=== PATIENT | male | born 1985 | race Caucasian/White ===

== ENCOUNTER 2017-09-27 01:44 | Inpatient (IN) | payer OTHER ==
[~2017-09-27] VITALS: Ht 177.8 cm; Wt 59.0 kg
[~2017-09-27 01:44] MED LIST: FERROUS SULFAT324 MG PO; IMURAN50 M1 PO; MULTIVITAMINS1 EAC9 PO; PRADAXA150 M1 PO; PREDNISONE10 M2 PO; PREDNISONE20 M1 PO; REMICADE100 MG
[2017-09-27 06:30] LABS: ABSOLUTE BASOPHIL COUNT 0 /CUMM (0.0-0.2); ABSOLUTE EOSINOPHIL COUNT 0.1 /CUMM (0.0-0.7); ABSOLUTE LYMPH COUNT 2.2 /CUMM (1.2-3.4); ABSOLUTE MONOCYTE COUNT 1.3 /CUMM (0.10-0.60); BASOPHIL % 0.3 % (0.0-2.0); EOSINOPHIL % 0.7 % (0-5); HEMATOCRIT 36.5 % (42-52); MEAN CORPUSCULAR HGB 27.5 PG (27.0-31.0); MEAN CORPUSCULAR HGB CONC 31.8 G/DL (33.0-37.0); MEAN CORPUSCULAR VOLUME 86.2 FL (80.0-94.0); MEAN PLATELET VOLUME 5.7 FL (7.4-10.4); PLATELET COUNT 682 /CUMM (130-400); RBC DISTRIBUTION WIDTH 14.9 % (11.5-14.5); RED BLOOD CELL CT 4.24 /CUMM (4.70-6.10); WHITE BLOOD CELL COUNT 12.7 /CUMM (4.8-10.8)
--- NOTE | 2017-09-27 15:30 | Operative Report ---
Operative/Inv Procedure Report Surgery Date: 09/27/17 Name of Procedure: 1. Robotic/laparoscopic total proctocolectomy formation of Ileoanal J-pouch 2. Laparoscopically formed a diverting loop ileostomy Pre-Operative Diagnosis: Ulcerative colitis refractory to medical treatment Post-Operative Diagnosis: Ulcerative colitis refractory to medical treatment Estimated Blood Loss: 50ml to 100ml Surgeon/Artist Color Separation: Kilo Santiago Jr., DO Anesthesia: general endotracheal tube, block Monitors: Per routine Drains: None Specimens: Total colon and rectum Complications: None Condition: Good Operative Indication: This is a 32-year-old gentleman who was diagnosed with ulcerative colitis approximately year ago. Despite aggressive medical therapy his GI doctors have been unable to relieve his symptoms and put him into remission. He was referred to me for consideration of total proctocolectomy. After lengthy Counseling the patient decided to proceed with the surgery. Discussed the options of end ileostomy versus J-pouch reconstruction patient elected J-pouch Operative/Procedure Note Note: On the day before his operation the patient did a bowel prep at home included oral laxatives and oral antibiotics He presented to [facility] where he received ERAS premedications Was taken to the operating room placed in supine position on the operating room table. He underwent induction of general anesthesia. A Joseph catheter placed. He had bilateral tap blocks warmed. Then he was converted to lithotomy position in Jassi stirrups Gained access to the abdominal cavity using a Veress needle. The needle was inserted in the midclavicular line to subclavicular on the left. The robotic ports were then placed on a diagonal line drawn between the mid clavicular line on the left and the right lower quadrant. Patient is small stature so the ports were placed about 8 cm apart. A right lower quadrant 8 mm air support was placed. And 25 mm ports were placed one on the left upper quadrant with the other in left lower quadrant The patient was placed in Trendelenburg right side down the small bowel swept out of the pelvis and the robot was docked. I started by dividing some abnormal adhesions between sigmoid colon and the anterior abdominal wall. Next the rectosigmoid was grasped I incised the peritoneum at the sacral promontory just to the right of the rectosigmoid and entered the avascular posterior rectal space. I didn't medial to lateral dissection into the left ureter were and iliac vessels were identified. I then followed this avascular space all the way to the levators posteriorly.. The lateral stalks were divided both on the right and to and on the left partly with electrocautery partly with vessel sealer until I reached the levator muscles. Anterior dissection was performed freeing the GI review structures from the anterior rectal wall. Prior to doing the transection I identified the vessels of the left colon.. The inferior mesenteric artery and vein were skeletonized and then divided with a robotic vessel sealer. The left colic artery was also identified and sealed with vessel sealer. Down the white line of Toldt for the entire length of the sigmoid colon and the entire length of the descending colon. Next the rectum was transected using green robotic ALISIA 45 mm stapler. 3 firings in total were required. At this point using table motion the patient was converted to reverse Trendelenburg. The splenic flexure was mobilized I divided the gastrocolic ligament then divided most of the transverse colon mesentery using the robotic vessel sealer. At this point the robot was undocked. Next laparoscopic right colectomy was carried out. I identified the ileocolic vessels skeletonized then divided with LigaSure. The medial to lateral dissection until I reached the lateral sidewall. The white line of Toldt was taken down starting at the appendix and working antegrade into the entire hepatic flexure was taken down. I divided the remainder of the gastrocolic ligament and then the remainder of the transverse colon mesentery, the right colic and middle colic vessels were identified and skeletonized and divided with vessel sealer. At this point the robot was undocked and pneumoperitoneum was let down. Next a 5 cm Pfannenstiel incision was performed and a wound protector was placed through this. I was able to grasp the transected end of the rectum and pull the entire colon and a good portion of the terminal ileum out through this incision. I cleared the mesentery at the ileocecal valve and then divided the bowel here with a blue ALISIA stapler flush with the colon wall. The small bowel was folded over on itself so that each limb was 20 cm and then the apex of the pouch the bowel was sent here to each other with interrupted 2-0 Vicryl sutures. Next a small enterotomy was made at the apex of the pouch and then using a laparoscopic ALISIA stapler IV divided the common wall. 460 mm staplers were used to create the pouch. Next the handsewn pursestring was performed at the previously made enterotomy a 25 EEA stapler was chosen for the anastomosis. The anvil was placed into the lumen of the J-pouch. The [place] was tied snugly around the PEG of the anvil. The bowel was reduced back into the abdominal cavity and then the Pfannenstiel incision was closed in 2 layers. The perineum was closed with running locking 2 -0 Vicryl sutures in the fascia was closed with a #0 PDS suture. Next the abdomen was reinsufflated and the EEA sizers then EEA stapler passed transanally. There was only about 4 cm of residual anal canal and rectum. The spike was advanced through the rectal wall and then the 2 ends of the stapler mated. We made sure the there was no twisting of the small bowel mesentery. Stapler was completely closed and allowed to settle. The stapler was then fired. As I withdrew the stapler. The anvil came loose into the J-pouch. A rigid sigmoidoscope was used to was find the anvil and then it was grasped with laparoscopic grasper and retrieved. The pouch looked pink and healthy and the suture lines appeared intact. Next we ran the bowel back untill we found acomfortable site for the loop ileostomy. A small mesenteric defect was created in a umbilical tape was pulled through this. The local tip was grasped and pulled up through the #3 port. The robotic colonoscopic for several then removed. The fascia at the 12 mm robotic port was closed with a [id number] 0 Vicryl. All the ports were closed with subcuticular 4-0 Monocryl and skin glue. Pfannenstiel port was copiously irrigated gated and then closed with katy. The incision around the 3 port was enlarged. Fascia was divided in cruciate fashion. The bowel was pulled up through the fascia and then a loop ileostomy was performed using Delphos technique. 3-0 Vicryl's were used to Caitlyn stoma. A stoma bridge was created with a red rubber catheter. At this point the procedure was concluded the abdomen was cleansed and dried a stomal collection device placed over the ileostomy and a island dressing was placed over the Pfannenstiel incision. The patient was converted back to supine exiting operating room and taken the recovery area in good condition At the end this procedure all needle sponges and instruments were accounted for
--- NOTE | 2017-09-27 16:01 | Patient Discharge Instructions ---
Discharge Instructions General Discharge Information You were seen/treated for: Ulcerative Colitis refractory to medical treatment You had these procedures: Name of Procedure: Robotic/laparoscopic total proctocolectomy, formation of Ileoanal J-pouch, diverting loop ileostomy creation Watch for these problems: Bleeding, infection, chest pain, cough, shortness of breath, redness, swelling or unusual drainage from incisions. Any other problems, questions or concerns. Do not soak the wound: Yes No bath, but you may shower: Yes Other wound care: -Steristrips will fall off once adhesive dissolves. -May shower, no tub baths/swimming- do not soak wounds. -Ostomy care: empty, measure and record output. -Contact Dr. Santiago's office if output continues to be greater than 1L in 24 hours -VNA for ostomy assistance -Call Dr. Santiago's office with questions/concerns Diet Recommended Diet: Regular Activity Full Activity/No Limits: No Activity Self Limited: Yes Pounds, do NOT lift more than: 10 Acute Coronary Syndrome Inclusion Criteria At DC or during hospital stay patient has or had the following: ACS DIAGNOSIS No Discharge Core Measures Meds if any: Prescribed or Continued at Discharge Meds if any: NOT Prescribed or Continued at Discharge Congestive Heart Failure Inclusion Criteria At DC or during hospital stay patient has or had the following: CHF DIAGNOSIS No Discharge Core Measures Meds if any: Prescribed or Continued at Discharge Meds if any: NOT Prescribed or Continued at Discharge Cerebrovascular accident Inclusion Criteria At DC or during hospital stay patient has or had the following: CVA/TIA Diagnosis No Discharge Core Measures Meds if any: Prescribed or Continued at Discharge Meds if any: NOT Prescribed or Continued at Discharge Venous thromboembolism Inclusion Criteria VTE Diagnosis No VTE Type NONE VTE Confirmed by (Test) NONE Discharge Core Measures - Per Current guidelines, there needs to be overlap - treatment for the first 5 days of Warfarin therapy. - If discharged on Warfarin prior to 5 days of - overlap therapy, the patient will need to be - assessed for post discharge needs including - *Post discharge parental anticoagulation - *Warfarin and/or parental anticoagulation education - *Follow up date to check INR post discharge At least 5 days overlap therapy as Inpatient No Meds if any: Prescribed or Continued at Discharge Note: Overlap Therapy is Warfarin and Anticoagulant Meds if any: NOT Prescribed or Continued at Discharge
--- NOTE | 2017-09-27 16:04 | Admission Core Measures ---
Acute Coronary Syndrome (CM) ACS Core Measures Acute Coronary Syndrome Diagnosis No Congestive Heart Failure (NEW) CHF Core Measures Congestive Heart Failure Diagnosis No Cerebrovascular Accident (NEW) CVA Core Measures CVA/TIA Diagnosis No Venous Thromboembolism VTE Core Sonia (View Protocol) VTE Risk Factors No risk factors No Mechanical VTE Prophylaxis d/t N/A MechProphylax Ordered No VTE Pharm Prophylaxis d/t NA PharmProphylax ordered Problem List As ranked by this Provider includes Assessment & Plan 1. Ulcerative colitis 2. S/P total colectomy HOME MEDS Home Med List Azathioprine (Imuran) 50 MG TABLET 1 TAB PO DAILY COLITIS (Reported) Dabigatran Etexilate Mesylate (Pradaxa 150 MG) 150 MG CAPSULE 1 CAP PO BID ANTICOAGULANT (Reported) Ferrous Sulfate 324 MG (65 MG IRON) TABLET.DR 1 TAB PO DAILY SUPPLEMENT ( Reported) Multiple Vitamin (Multivitamins) 1 EACH TABLET 1 TAB PO DAILY SUPPLEMENT ( Reported) Prednisone 10 MG TABLET 1 TAB PO DAILY COLITIS (Reported)
--- NOTE | 2017-09-27 16:06 | Surgical Discharge Summary ---
Visit Information Visit Dates Admission Date: 09/27/17 History of Present Illness Chief Complaint: Ulcerative Colitis Review of Systems: as per [facility] Hospital Course Course Attending Physician: Kilo Santiago Jr., DO Primary Care Physician: Unknown Allergies: Coded Allergies: ketorolac (From TORADOL) (chest pain 09/29/17) Discharge Instructions Medications at Discharge Discharge Medications: Continue taking these medications: Azathioprine (Imuran) 50 MG TABLET 1 Tablet ORAL DAILY Ferrous Sulfate (Ferrous Sulfate) 324 MG (65 MG IRON) TABLET.DR 1 Tablet ORAL DAILY Infliximab (Remicade) 100 MG VIAL Multiple Vitamin (Multivitamins) 1 EACH TABLET 1 Tablet ORAL DAILY Dabigatran Etexilate Mesylate (Pradaxa 150 MG) 150 MG CAPSULE 1 Capsule ORAL TWICE DAILY Prednisone (Prednisone) 10 MG TABLET 1 Tablet ORAL DAILY
--- NOTE | 2017-09-27 21:05 | PN- General Surgery ---
Subjective Subjective: Patient doing well since arriving to the floor. Pain is not controlled at this time and is going to try something. Cantu in place. Tolerating clears. No other issues or complaints. Objective Vital Signs and I&Os Vital Signs Date Time Temp Pulse Resp B/P B/P Pulse O2 O2 Flow FiO2 Mean Ox Delivery Rate 09/27 1928 Nasal 2.0L Cannula Physical Exam: General: A, A, NAD Skin: Sub q emphysema to face/chest/neck Abdomen: Irena. ttp, dsg with ss strikethrough, incisions c/d/i with glue in place , ileostomy is pink/functioning and viable Extremities: No clubbing, cyanosis or edema Current Medications: Current Medications Sig/Sienna Start time Last Medication Dose Route Stop Time Status Admin Acetaminophen 1,000 MG Q8 09/27 1526 AC PO Acetaminophen 1,000 MG .STK-MED ONE 09/27 700 DC IV 09/27 701 Acetaminophen 1,000 MG ONCE 09/27 0000 NR PO 09/27 2359 Alvimopan 12 MG BID 09/27 2099 AC 09/27 PO 2012 Alvimopan 12 MG ONCE 09/27 0000 NR PO 09/27 2359 Diphenhydramine HCl 50 MG Q6P PRN 09/27 1545 AC IV Fentanyl Citrate 250 MCG .STK-MED ONE 09/27 700 DC IM 09/27 701 Gabapentin 300 MG BID 09/27 2099 AC 09/27 PO 2013 Gabapentin 0 .STK-MED ONE 09/27 0731 DC PO Gabapentin 600 MG ONCE 09/27 0000 NR PO 09/27 2359 Hydrocortisone 5 MG BID 10/02 2099 AC Sodium Succinate IV Hydrocortisone 10 MG BID 10/01 2099 AC Sodium Succinate IV Hydrocortisone 20 MG BID 09/30 2099 AC Sodium Succinate IV Hydrocortisone 30 MG BID 09/29 899 AC Sodium Succinate IV Hydrocortisone 40 MG BID 09/28 899 AC Sodium Succinate IV 09/28 210 Hydrocortisone 50 MG BID 09/27 2099 AC 09/27 Sodium Succinate IV 09/28 Hydromorphone HCl 4 MG .STK-MED ONE 09/27 07 DC IM 09/27 700 Lactated Ringer's 1,000 ML Q13H 09/27 1600 AC 09/27 IV 2014 Lactated Ringer's 75 ML .[HOURLY] 09/27 1545 CAN IV Meclizine HCl 12.5 MG TID PRN 09/27 1815 AC 09/27 PO 2013 Midazolam HCl 2 MG .STK-MED ONE 09/27 0701 DC IM 09/27 07 Morphine Sulfate 2 MG Q3P PRN 09/27 1600 AC 09/27 IV 2013 Morphine Sulfate 2 MG Q3P PRN 09/27 1545 DC IV Oxycodone HCl 5 MG Q4P PRN 09/27 1600 AC PO Oxycodone HCl 10 MG Q4P PRN 09/27 1600 AC PO Oxycodone/ 1 TAB Q4P PRN 09/27 1530 DC Acetaminophen PO Pantoprazole Sodium 40 MG DAILY 09/27 1537 AC 09/27 IV 2012 Results Last 48 Hours of Labs: Laboratory Tests 09/27 622 Chemistry Sodium (137 - 145 mmol/L) 136 L Potassium (3.5 - 5.1 mmol/L) 3.7 Chloride (98 - 107 mmol/L) 102 Carbon Dioxide (22 - 30 mmol/L) 28 Anion Gap (5 - 16) 6 BUN (9 - 20 mg/dL) 7 L Creatinine (0.7 - 1.2 mg/dL) 0.8 Estimated GFR (>60 ml/min) > 60 BUN/Creatinine Ratio (7 - 25 %) 8.8 Glucose (65 - 99 mg/dL) 75 Calcium (8.4 - 10.2 mg/dL) 8.2 L Total Bilirubin (0.2 - 1.3 mg/dL) 0.2 AST (17 - 59 U/L) 11 L ALT (21 - 72 U/L) 19 L Alkaline Phosphatase (< 127 U/L) 113 Total Protein (6.3 - 8.2 g/dL) 4.9 L Albumin (3.5 - 5.0 g/dL) 2.2 L Globulin (1.9 - 4.2 gm/dL) 2.7 Albumin/Globulin Ratio (1.1 - 2.2 %) 0.8 L Hematology CBC w Diff NO MAN DIFF REQ WBC (4.8 - 10.8 /CUMM) 12.7 H RBC (4.70 - 6.10 /CUMM) 4.24 L Hgb (14.0 - 18.0 G/DL) 11.6 L Hct (42 - 52 %) 36.5 L MCV (80.0 - 94.0 FL) 86.2 MCH (27.0 - 31.0 PG) 27.5 MCHC (33.0 - 37.0 G/DL) 31.8 L RDW (11.5 - 14.5 %) 14.9 H Plt Count (130 - 400 /CUMM) 682 H MPV (7.4 - 10.4 FL) 5.7 L Gran % (42.2 - 75.2 %) 71.0 Lymphocytes % (20.5 - 51.1 %) 17.4 L Monocytes % (1.7 - 9.3 %) 10.6 H Eosinophils % (0 - 5 %) 0.7 Basophils % (0.0 - 2.0 %) 0.3 Absolute Granulocytes (1.4 - 6.5 /CUMM) 9.0 H Absolute Lymphocytes (1.2 - 3.4 /CUMM) 2.2 Absolute Monocytes (0.10 - 0.60 /CUMM) 1.3 H Absolute Eosinophils (0.0 - 0.7 /CUMM) 0.1 Absolute Basophils (0.0 - 0.2 /CUMM) 0 Assessment/Plan Assessment/Plan This is a 32 yo male who is POD#0 from a robotic total proctocolectomy, jpouch and loop ileostomy creation, doing well. Ambulate Pain control/eras GI/DVT Px Home meds Continue cantu, d/c tomorrow Clear Liquid Diet Monitor quality and quantity of ostomy output Ostomy teaching Monitor sub q emphysema Will follow Will d/w Dr. Santiago Problem List: 1. Ulcerative colitis 2. S/P total colectomy Core Measures Venous Thromboembolism VTE Risk Factors No risk factors No Mechanical VTE Prophylaxis d/t N/A MechProphylax Ordered No VTE Pharm Prophylaxis d/t NA PharmProphylax ordered
[2017-09-27 22:41] VITALS: BP 118/70
[2017-09-28 06:34] VITALS: BP 134/80
--- NOTE | 2017-09-28 07:16 | PN- General Surgery ---
See Addendum Surgical Brief Attending Note Brief Attending Note: Patient complaining of a lot of abdominal pain this morning he describes as crampy upper abdominal Vital signs stable overnight Urine appears adequate On exam patient is awake alert, abdomen is nondistended, appropriately tender over incisions, stoma is putting out liquid brown stool Labs are not back yet Plan is as follows: DC Etereg Keep Joseph catheter Continue low rate IV fluids Patient has not attempted diet yet so clears this morning if tolerates can go to full this afternoon Labs look okay restart subcutaneous heparin today Pain control Stress dose steroids
[2017-09-28 08:22] LABS: ABSOLUTE BASOPHIL COUNT 0 /CUMM (0.0-0.2); ABSOLUTE EOSINOPHIL COUNT 0 /CUMM (0.0-0.7); ABSOLUTE GRANULOCYTE CT 9.8 /CUMM (1.4-6.5); ABSOLUTE LYMPH COUNT 0.5 /CUMM (1.2-3.4); ABSOLUTE MONOCYTE COUNT 0.6 /CUMM (0.10-0.60); BASOPHIL % 0.3 % (0.0-2.0); EOSINOPHIL % 0 % (0-5); HEMATOCRIT 31.7 % (42-52); MEAN CORPUSCULAR HGB 27.8 PG (27.0-31.0); MEAN CORPUSCULAR HGB CONC 32.2 G/DL (33.0-37.0); MEAN CORPUSCULAR VOLUME 86.3 FL (80.0-94.0); MEAN PLATELET VOLUME 6.8 FL (7.4-10.4); RBC DISTRIBUTION WIDTH 15.4 % (11.5-14.5); RED BLOOD CELL CT 3.67 /CUMM (4.70-6.10); WHITE BLOOD CELL COUNT 10.9 /CUMM (4.8-10.8)
[2017-09-28 09:43] LABS: GRANULOCYTE % 89.3 % (42.2-75.2)
[2017-09-28 09:44] LABS: PLATELET COUNT 379 /CUMM (130-400)
[2017-09-28 14:34] VITALS: BP 130/80
[2017-09-28 22:28] VITALS: BP 120/80
[2017-09-29 06:28] LABS: ABSOLUTE BASOPHIL COUNT 0.1 /CUMM (0.0-0.2); ABSOLUTE EOSINOPHIL COUNT 0 /CUMM (0.0-0.7); ABSOLUTE GRANULOCYTE CT 11.8 /CUMM (1.4-6.5); ABSOLUTE LYMPH COUNT 0.7 /CUMM (1.2-3.4); ABSOLUTE MONOCYTE COUNT 0.9 /CUMM (0.10-0.60); BASOPHIL % 0.5 % (0.0-2.0); EOSINOPHIL % 0.1 % (0-5); GRANULOCYTE % 87.2 % (42.2-75.2); HEMATOCRIT 35.5 % (42-52); MEAN CORPUSCULAR HGB 27.4 PG (27.0-31.0); MEAN CORPUSCULAR HGB CONC 31.5 G/DL (33.0-37.0); MEAN CORPUSCULAR VOLUME 87.1 FL (80.0-94.0); MEAN PLATELET VOLUME 6.1 FL (7.4-10.4); PLATELET COUNT 484 /CUMM (130-400); RBC DISTRIBUTION WIDTH 15.4 % (11.5-14.5); RED BLOOD CELL CT 4.07 /CUMM (4.70-6.10)
[2017-09-29 06:48] VITALS: BP 146/80
[2017-09-29 06:57] LABS: WHITE BLOOD CELL COUNT 13.5 /CUMM (4.8-10.8)
--- NOTE | 2017-09-29 07:55 | PN- General Surgery ---
See Addendum Subjective Subjective: Reports pain not well controlled. He is not doing deep breathing well due to his pain. Not getting out of bed yet due to pain. Denies dizziness. Not short of breath. No chest pains. Cantu left in place intentionally due to uncontrolled pain, which will be taken out later today once his pain is better controlled. Objective Vital Signs and I&Os Vital Signs Date Time Temp Pulse Resp B/P B/P Pulse O2 O2 Flow FiO2 Mean Ox Delivery Rate 09/30 647 97.6 68 18 146/80 98 Nasal 2.0L Cannula 09/29 0000 Nasal 2.0L Cannula 09/28 2228 98.7 72 20 120/80 94 Nasal Cannula 09/28 1434 98.8 67 20 130/80 98 09/28 0800 Nasal 2.0L Cannula Intake & Output 09/29 0800 09/29 0000 09/28 1600 09/28 0809/28 0000 09/27 1600 Intake Total 606 071 5739 1000 470 Output Total 500 1775 1450 750 330 Balance 225 -1350 -350 250 140 Intake, IV 525 225 600 600 330 Intake, Oral 200 200 500 400 140 Output, Stool 250 625 175 100 50 Output, Urine 250 1150 1275 650 280 Patient 130 lb Weight Weight Reported by Patient Measurement Method Physical Exam: General - alert & oriented x 3. uncomfortable. Lungs - poor effort. clear. Cardiac - s1s2. reg. Abdomen - soft. nondistended. expected incisional tenderness. stoma emptying liquid brown stool. red rubber catheter bridge in place. Current Medications: Current Medications Sig/Sienna Start time Last Medication Dose Route Stop Time Status Admin Acetaminophen 1,000 MG .STK-MED ONE 09/28 1508 DC PO 09/28 1509 Acetaminophen 1,000 MG Q8 09/27 1526 AC 09/29 PO 0527 Diphenhydramine HCl 50 MG Q6P PRN 09/27 1545 AC IV Gabapentin 300 MG BID 09/27 2100 AC 09/28 PO 210 Heparin Sodium 5,000 UNIT Q8 09/28 0745 AC 09/29 (Porcine) SC 0526 Hydrocortisone 5 MG BID 10/02 2099 CAN Sodium Succinate IV Hydrocortisone 5 MG Q12 10/02 2099 AC Sodium Succinate IV 10/03 09 Hydrocortisone 10 MG BID 10/01 2099 CAN Sodium Succinate IV Hydrocortisone 10 MG Q12 10/01 2099 AC Sodium Succinate IV 10/02 900 Hydrocortisone 20 MG BID 09/30 2099 CAN Sodium Succinate IV Hydrocortisone 20 MG Q12 09/30 2099 AC Sodium Succinate IV 10/01 900 Hydrocortisone 30 MG Q12 09/29 2099 AC Sodium Succinate IV 09/30 900 Hydrocortisone 30 MG BID 09/29 899 CAN Sodium Succinate IV Hydrocortisone 40 MG Q12 09/28 2099 AC 09/28 Sodium Succinate IV 09/29 Hydrocortisone 40 MG BID 09/28 899 DC Sodium Succinate IV 09/28 2100 Hydrocortisone 50 MG BID 09/27 2099 DC 09/28 Sodium Succinate IV 09/28 Ketorolac 30 MG ONCE ONE 09/30 799 UNVr Tromethamine IV 09/29 800 Lactated Ringer's 1,000 ML Q13H 09/27 1600 AC 09/28 IV 1913 Meclizine HCl 12.5 MG TID PRN 09/27 1815 AC 09/27 PO 2013 Morphine Sulfate 4 MG Q2-3 HRS NEEDED.. 09/30 799 UNVr IV Morphine Sulfate 2 MG Q2 HRS NEEDED PRN 09/28 0745 r 09/29 IV 0526 Oxycodone HCl 5 MG Q4P PRN 09/27 1600 AC PO Oxycodone HCl 10 MG Q4P PRN 09/27 1600 AC 09/29 PO 0312 Pantoprazole Sodium 40 MG DAILY 09/27 1537 AC 09/28 IV 0921 Results Last 48 Hours of Labs: Laboratory Tests 09/29 0600 Chemistry Sodium (137 - 145 mmol/L) 134 L Potassium (3.5 - 5.1 mmol/L) 4.5 Chloride (98 - 107 mmol/L) 101 Carbon Dioxide (22 - 30 mmol/L) 30 Anion Gap (5 - 16) 3 L BUN (9 - 20 mg/dL) 10 Creatinine (0.7 - 1.2 mg/dL) 0.8 Estimated GFR (>60 ml/min) > 60 BUN/Creatinine Ratio (7 - 25 %) 12.5 Phosphorus (2.5 - 4.5 mg/dL) 3.8 Cancelled Magnesium (1.6 - 2.3 mg/dL) 1.9 Troponin I (<0.11 ng/ml) < 0.01 Hematology CBC w Diff NO MAN DIFF REQ Cancelled WBC (4.8 - 10.8 /CUMM) 13.5 H Cancelled RBC (4.70 - 6.10 /CUMM) 4.07 L Cancelled Hgb (14.0 - 18.0 G/DL) 11.2 L Cancelled Hct (42 - 52 %) 35.5 L Cancelled MCV (80.0 - 94.0 FL) 87.1 Cancelled MCH (27.0 - 31.0 PG) 27.4 Cancelled MCHC (33.0 - 37.0 G/DL) 31.5 L Cancelled RDW (11.5 - 14.5 %) 15.4 H Cancelled Plt Count (130 - 400 /CUMM) 484 H Cancelled MPV (7.4 - 10.4 FL) 6.1 L Cancelled Gran % (42.2 - 75.2 %) 87.2 H Lymphocytes % (20.5 - 51.1 %) 5.3 L Monocytes % (1.7 - 9.3 %) 6.9 Eosinophils % (0 - 5 %) 0.1 Basophils % (0.0 - 2.0 %) 0.5 Absolute Granulocytes (1.4 - 6.5 /CUMM) 11.8 H Absolute Lymphocytes (1.2 - 3.4 /CUMM) 0.7 L Absolute Monocytes (0.10 - 0.60 /CUMM) 0.9 H Absolute Eosinophils (0.0 - 0.7 /CUMM) 0 Absolute Basophils (0.0 - 0.2 /CUMM) 0.1 05/05 0730 Chemistry Sodium (137 - 145 mmol/L) 134 L Potassium (3.5 - 5.1 mmol/L) 4.5 Chloride (98 - 107 mmol/L) 103 Carbon Dioxide (22 - 30 mmol/L) 26 Anion Gap (5 - 16) 4 L BUN (9 - 20 mg/dL) 7 L Creatinine (0.7 - 1.2 mg/dL) 0.7 Estimated GFR (>60 ml/min) > 60 BUN/Creatinine Ratio (7 - 25 %) 10.0 Hematology CBC w Diff NO MAN DIFF REQ WBC (4.8 - 10.8 /CUMM) 10.9 H RBC (4.70 - 6.10 /CUMM) 3.67 L Hgb (14.0 - 18.0 G/DL) 10.2 L Hct (42 - 52 %) 31.7 L MCV (80.0 - 94.0 FL) 86.3 MCH (27.0 - 31.0 PG) 27.8 MCHC (33.0 - 37.0 G/DL) 32.2 L RDW (11.5 - 14.5 %) 15.4 H Plt Count (130 - 400 /CUMM) 379 MPV (7.4 - 10.4 FL) 6.8 L Gran % (42.2 - 75.2 %) 89.3 H Lymphocytes % (20.5 - 51.1 %) 5.0 L Monocytes % (1.7 - 9.3 %) 5.4 Eosinophils % (0 - 5 %) 0 Basophils % (0.0 - 2.0 %) 0.3 Absolute Granulocytes (1.4 - 6.5 /CUMM) 9.8 H Absolute Lymphocytes (1.2 - 3.4 /CUMM) 0.5 L Absolute Monocytes (0.10 - 0.60 /CUMM) 0.6 Absolute Eosinophils (0.0 - 0.7 /CUMM) 0 Absolute Basophils (0.0 - 0.2 /CUMM) 0 Assessment/Plan Assessment/Plan This 32 year old male with history of ulcerative colitis refractory to medical treatment, is POD#2 s/p robotic/laparoscopic total proctocolectomy formation of Ileoanal J-pouch, and laparoscopically formed diverting loop ileostomy tolerating clears / fulls. d/c iv fluids try IV toradol x 1 per will increase morphine option from 2 to 4mg q2-3 prn pain renew cantu until able to ambulate, once pain under better control steroid taper as ordered protonix - gi ppx hep sc - dvt ppx f/u labs oob/ambulation once pain under better control d/w Core Measures Venous Thromboembolism VTE Risk Factors No risk factors No Mechanical VTE Prophylaxis d/t N/A MechProphylax Ordered No VTE Pharm Prophylaxis d/t NA PharmProphylax ordered No VTE Pharm Prophylaxis d/t NA PharmProphylax ordered
[2017-09-29 15:19] VITALS: BP 146/82
--- NOTE | 2017-09-29 18:36 | RADIOLOGY REPORT ---
EXAMINATION: XR CHEST, PORTABLE CLINICAL INFORMATION: Postop leukocytosis. COMPARISON: None TECHNIQUE: Portable frontal view of the chest was obtained. FINDINGS: Subcutaneous emphysema overlying the chest and neck. Suspect a moderate right-sided pneumothorax. There is opacification of the bilateral lower lungs, most notably in the left lower lung. No significant mediastinal widening. No acute osseous abnormalities. IMPRESSION: 1. Moderate right pneumothorax. 2. Extensive subcutaneous emphysema about the chest and neck. 3. Hazy bilateral lower lung opacification, most notable at the left lower lung. Findings could represent atelectasis, aspiration, or pneumonia.
[2017-09-29 22:21] VITALS: BP 120/86
[2017-09-30 04:57] LABS: ABSOLUTE BASOPHIL COUNT 0 /CUMM (0.0-0.2); ABSOLUTE EOSINOPHIL COUNT 0 /CUMM (0.0-0.7); ABSOLUTE LYMPH COUNT 0.7 /CUMM (1.2-3.4); ABSOLUTE MONOCYTE COUNT 1.2 /CUMM (0.10-0.60); EOSINOPHIL % 0 % (0-5)
[2017-09-30 05:30] LABS: ABSOLUTE GRANULOCYTE CT 26.3 /CUMM (1.4-6.5); BASOPHIL % 0 % (0.0-2.0); GRANULOCYTE % 93.3 % (42.2-75.2); HEMATOCRIT 35.3 % (42-52); MEAN CORPUSCULAR HGB 27.8 PG (27.0-31.0); MEAN CORPUSCULAR HGB CONC 31.9 G/DL (33.0-37.0); MEAN PLATELET VOLUME 6.6 FL (7.4-10.4); PLATELET COUNT 495 /CUMM (130-400); RED BLOOD CELL CT 4.06 /CUMM (4.70-6.10)
[2017-09-30 05:50] LABS: WHITE BLOOD CELL COUNT 28.2 /CUMM (4.8-10.8)
--- NOTE | 2017-09-30 05:56 | PN- General Surgery ---
Subjective Subjective: Transferred to icu last night due to right sided pneumothorax, which he believes he has been symptomtatic from since he woke up from surgery on saturday. Placed on 100% nrb mask overnight. He reports ongoing painful breathing, which outweights his abdominal discomfort. Intentionally avoiding deep breathing due to pain. Not acutely short of breath. Not getting up / oob secondary to pain. Objective Vital Signs and I&Os Vital Signs Date Time Temp Pulse Resp B/P B/P Pulse O2 O2 Flow FiO2 Mean Ox Delivery Rate 09/30 0400 100 Non 100% ReBreather 09/30 0000 100 Non 100% ReBreather 09/29 2221 98.9 96 24 120/86 99 Non 100% ReBreather 09/29 1519 98.1 70 18 146/82 99 09/29 0800 Nasal 2.0L Cannula 09/29 0648 97.6 68 18 146/80 98 Nasal 2.0L Cannula Intake & Output 09/30 0800 09/30 0000 09/29 1600 09/29 0800 09/29 0000 09/28 1600 Intake Total 175 750 960 535 3145 Output Total 200 132 804 8037 1450 Balance -25 300 225 -1350 -350 Intake, IV 75 525 225 600 Intake, Oral 100 750 200 200 500 Output, Stool 50 300 250 625 175 Output, Urine 150 318 312 3476 1275 Physical Exam: General - alert & oriented x 3. uncomfortable. no acute distress. Lungs - poor effort. decreased breath sounds on the right compared to left. Cardiac - s1s2. reg. Abdomen - soft. incisions c/d/i. expected leela-incisional tenderness. ileostomy with small amount of liquid stool in bag. red rubber catheter in place. - cantu draining clear, yellow urine Extremities - warm bilaterally. no c/c/e. calves soft and nontender b/l. athrombics active. Current Medications: Current Medications Sig/Sienna Start time Last Medication Dose Route Stop Time Status Admin Acetaminophen 1,000 MG Q8 09/27 1526 AC 09/29 PO 2140 Dextrose/Sodium 1,000 ML Q13H 09/30 1999 AC 09/29 Chloride IV 2142 Diphenhydramine HCl 50 MG Q6P PRN 09/27 1545 AC IV Gabapentin 300 MG BID 09/27 2100 AC 09/29 PO 2130 Heparin Sodium 5,000 UNIT Q8 09/28 0745 AC 05/07 (Porcine) SC 0541 Hydrocortisone 5 MG Q12 10/02 2099 AC Sodium Succinate IV 10/03 900 Hydrocortisone 10 MG Q12 10/01 2099 AC Sodium Succinate IV 10/02 900 Hydrocortisone 20 MG Q12 09/30 2100 AC Sodium Succinate IV 10/01 900 Hydrocortisone 30 MG Q12 09/29 2100 AC 09/29 Sodium Succinate IV 09/30 0901 2127 Hydrocortisone 40 MG Q12 09/28 2099 DC 09/29 Sodium Succinate IV 09/29 0901 0811 Ketorolac 15 MG Q6 09/29 1311 DC 09/29 Tromethamine IV 09/30 1801 1428 Ketorolac 30 MG 0800 09/29 0800 DC 09/29 Tromethamine IV 09/29 08 0814 Lactated Ringer's 1,000 ML Q13H 09/27 1600 DC 09/28 IV 1913 Lorazepam 0.5 MG Q8P PRN 09/29 1945 AC PO 10/06 194 Meclizine HCl 12.5 MG TID PRN 09/27 181 AC 09/27 PO 2013 Morphine Sulfate 4 MG Q2-3 HRS NEEDED.. 09/29 0800 AC 09/29 IV 2130 Morphine Sulfate 2 MG Q2 HRS NEEDED PRN 09/28 0745 AC 09/30 IV 0356 Oxycodone HCl 5 MG Q4P PRN 09/27 1600 AC PO Oxycodone HCl 10 MG Q4P PRN 09/27 1600 AC 09/29 PO 0312 Pantoprazole Sodium 40 MG DAILY 09/27 1537 AC 09/29 IV 0809 Results Last 48 Hours of Labs: Laboratory Tests 09/30 09/29 0400 0605 Chemistry Sodium (137 - 145 mmol/L) 133 L 134 L Potassium (3.5 - 5.1 mmol/L) 4.6 4.5 Chloride (98 - 107 mmol/L) 100 101 Carbon Dioxide (22 - 30 mmol/L) 28 30 Anion Gap (5 - 16) 5 3 L BUN (9 - 20 mg/dL) 13 10 Creatinine (0.7 - 1.2 mg/dL) 0.8 0.8 Estimated GFR (>60 ml/min) > 60 > 60 BUN/Creatinine Ratio (7 - 25 %) 16.3 12.5 Phosphorus (2.5 - 4.5 mg/dL) 3.8 Magnesium (1.6 - 2.3 mg/dL) 1.9 Troponin I (<0.11 ng/ml) < 0.01 Hematology CBC w Diff MAN DIFF ORDERED NO MAN DIFF REQ WBC (4.8 - 10.8 /CUMM) 28.2 H 13.5 H RBC (4.70 - 6.10 /CUMM) 4.06 L 4.07 L Hgb (14.0 - 18.0 G/DL) 11.3 L 11.2 L Hct (42 - 52 %) 35.3 L 35.5 L MCV (80.0 - 94.0 FL) 87.0 87.1 MCH (27.0 - 31.0 PG) 27.8 27.4 MCHC (33.0 - 37.0 G/DL) 31.9 L 31.5 L RDW (11.5 - 14.5 %) 15.0 H 15.4 H Plt Count (130 - 400 /CUMM) 495 H 484 H MPV (7.4 - 10.4 FL) 6.6 L 6.1 L Gran % (42.2 - 75.2 %) 93.3 H 87.2 H Lymphocytes % (20.5 - 51.1 %) 2.5 L 5.3 L Monocytes % (1.7 - 9.3 %) 4.2 6.9 Eosinophils % (0 - 5 %) 0 0.1 Basophils % (0.0 - 2.0 %) 0 0.5 Absolute Granulocytes (1.4 - 6.5 /CUMM) 26.3 H 11.8 H Segmented Neutrophils (42.2 - 75.2 %) 83 H Band Neutrophils (0.0 - 5.0 %) 8 H Absolute Lymphocytes (1.2 - 3.4 /CUMM) 0.7 L 0.7 L Lymphocytes (20.5 - 51.1 %) 4 L Monocytes (1.7 - 9.3 %) 5 Absolute Monocytes (0.10 - 0.60 /CUMM) 1.2 H 0.9 H Absolute Eosinophils (0.0 - 0.7 /CUMM) 0 0 Absolute Basophils (0.0 - 0.2 /CUMM) 0 0.1 Platelet Estimate (ADEQUATE) ADEQUATE Polychromasia 1+ Hypochromic-Microcytic 2+ Basophilic Stippling RARE Anisocytosis 1+ 05/06 05 0600 0730 Chemistry Sodium (137 - 145 mmol/L) 134 L Potassium (3.5 - 5.1 mmol/L) 4.5 Chloride (98 - 107 mmol/L) 103 Carbon Dioxide (22 - 30 mmol/L) 26 Anion Gap (5 - 16) 4 L BUN (9 - 20 mg/dL) 7 L Creatinine (0.7 - 1.2 mg/dL) 0.7 Estimated GFR (>60 ml/min) > 60 BUN/Creatinine Ratio (7 - 25 %) 10.0 Phosphorus Cancelled Hematology CBC w Diff Cancelled NO MAN DIFF REQ WBC (4.8 - 10.8 /CUMM) Cancelled 10.9 H RBC (4.70 - 6.10 /CUMM) Cancelled 3.67 L Hgb (14.0 - 18.0 G/DL) Cancelled 10.2 L Hct (42 - 52 %) Cancelled 31.7 L MCV (80.0 - 94.0 FL) Cancelled 86.3 MCH (27.0 - 31.0 PG) Cancelled 27.8 MCHC (33.0 - 37.0 G/DL) Cancelled 32.2 L RDW (11.5 - 14.5 %) Cancelled 15.4 H Plt Count (130 - 400 /CUMM) Cancelled 379 MPV (7.4 - 10.4 FL) Cancelled 6.8 L Gran % (42.2 - 75.2 %) 89.3 H Lymphocytes % (20.5 - 51.1 %) 5.0 L Monocytes % (1.7 - 9.3 %) 5.4 Eosinophils % (0 - 5 %) 0 Basophils % (0.0 - 2.0 %) 0.3 Absolute Granulocytes (1.4 - 6.5 /CUMM) 9.8 H Absolute Lymphocytes (1.2 - 3.4 /CUMM) 0.5 L Absolute Monocytes (0.10 - 0.60 /CUMM) 0.6 Absolute Eosinophils (0.0 - 0.7 /CUMM) 0 Absolute Basophils (0.0 - 0.2 /CUMM) 0 Recent Imaging Studies: EXAMINATION: XR CHEST, PORTABLE CLINICAL INFORMATION: Postop leukocytosis. COMPARISON: None TECHNIQUE: Portable frontal view of the chest was obtained. FINDINGS: Subcutaneous emphysema overlying the chest and neck. Suspect a moderate right-sided pneumothorax. There is opacification of the bilateral lower lungs, most notably in the left lower lung. No significant mediastinal widening. No acute osseous abnormalities. IMPRESSION: 1. Moderate right pneumothorax. 2. Extensive subcutaneous emphysema about the chest and neck. 3. Hazy bilateral lower lung opacification, most notable at the left lower lung. Findings could represent atelectasis, aspiration, or pneumonia. DICTATED BY: Dane Peralta MD DATE/TIME DICTATED:09/29/171824 BINDERY WORKER:JENNIFFER DATE/TIME TRANSCRIBED:09/29/171824 Assessment/Plan Assessment/Plan This 32 year old male with history of ulcerative colitis refractory to medical treatment, is POD#3 s/p robotic/laparoscopic total proctocolectomy formation of Ileoanal J-pouch, and laparoscopically formed diverting loop ileostomy, transferred to icu last night due to right sided pneumothorax that he believes he woke up with after surgery on saturday - with painful breathing outweighing his abdominal discomfort currently npo / ivf placed on 100% NRB mask overnight / continuous o2 sat monitoring f/u cxr this morning tylenol / morphine / ativan prn pain (he did not like how toradol made him feel) d/c cantu once able / comfortable enough to get out of bed steroid taper as ordered protonix - gi ppx hep sc - dvt ppx f/u labs and cxr oob/ambulation once pain under better control f/u and d/w Core Measures Venous Thromboembolism VTE Risk Factors No risk factors No Mechanical VTE Prophylaxis d/t N/A MechProphylax Ordered No VTE Pharm Prophylaxis d/t NA PharmProphylax ordered
[2017-09-30 08:00] VITALS: BP 122/86
--- NOTE | 2017-09-30 08:35 | Cons- CRCU ---
Maira FRAUSTO,[facility] 09/30/17 0834: General Information and HPI Consulting Request Date of Consult: 09/30/17 Requested By: Surgical Team Reason for Consult: Pneumothorax Source of Information: patient Exam Limitations: no limitations History of Present Illness: Mr. Baltazar is a 32-year-old gentleman with past medical history significant for right lower extremity DVT and PE on Pradaxa(February 2017) and refractory ulcerative colitis who was initially admitted under surgical services for laparoscopic total proctocolectomy with formation of ileoanal J-pouch and diverticular loop ileostomy, postop day 3, was transferred to the ICU yesterday evening after on chest x-ray he was found to have a moderate right sided pneumothorax and extensive subcutaneous emphysema about the neck and chest. He was started to placed on 100% NRB mask and transferred to ICU for continuous O2 sats monitoring. Patient is also on stress dose hydrocortisone, as he takes prednisone 10 mg daily at home for ulcerative colitis. Patient is a former smoker and drinker; quit 1-1/2 years ago after his Ulcerative colitis started acting up. Allergies/Medications Allergies: Coded Allergies: ketorolac (From TORADOL) (chest pain 09/29/17) Home Med List: Azathioprine (Imuran) 50 MG TABLET 1 TAB PO DAILY COLITIS (Reported) Dabigatran Etexilate Mesylate (Pradaxa 150 MG) 150 MG CAPSULE 1 CAP PO BID ANTICOAGULANT (Reported) Ferrous Sulfate 324 MG (65 MG IRON) TABLET.DR 1 TAB PO DAILY SUPPLEMENT ( Reported) Infliximab (Remicade) 100 MG VIAL COLITIS (Reported) Multiple Vitamin (Multivitamins) 1 EACH TABLET 1 TAB PO DAILY SUPPLEMENT ( Reported) Prednisone 10 MG TABLET 1 TAB PO DAILY COLITIS (Reported) Current Medications: Current Medications Sig/Sienna Start time Last Medication Dose Route Stop Time Status Admin Acetaminophen 1,000 MG Q8 09/27 1526 AC 09/30 PO 0622 Ampicillin Sodium/ 1,500 MG Q6 09/30 1200 AC Sulbactam Sodium IV 10/01 1159 Sodium Chloride 100 ML Dextrose/Sodium 1,000 ML Q13H 09/29 2000 AC 09/29 Chloride IV 2142 Diphenhydramine HCl 50 MG Q6P PRN 09/27 1545 AC IV Fentanyl Citrate 0 .STK-MED ONE 09/30 1104 DC .ROUTE Gabapentin 300 MG BID 09/27 2100 AC 09/30 PO 0854 Heparin Sodium 5,000 UNIT Q8 09/28 0745 AC 09/30 (Porcine) SC 0541 Hydrocortisone 5 MG Q12 10/02 2100 AC Sodium Succinate IV 10/03 0901 Hydrocortisone 10 MG Q12 10/01 2100 AC Sodium Succinate IV 10/02 0901 Hydrocortisone 20 MG Q12 09/30 2100 AC Sodium Succinate IV 10/01 0901 Hydrocortisone 30 MG Q12 09/29 2100 DC 09/30 Sodium Succinate IV 09/30 0901 0854 Ketorolac 15 MG Q6 09/29 1311 DC 09/29 Tromethamine IV 09/30 1801 1428 Lorazepam 0.5 MG Q8P PRN 09/29 1945 AC PO 10/06 194 Meclizine HCl 12.5 MG TID PRN 09/27 1815 AC 09/27 PO 2013 Midazolam HCl 0 .STK-MED ONE 09/30 1104 DC .ROUTE Morphine Sulfate 4 MG Q2-3 HRS NEEDED.. 09/29 0800 AC 09/29 IV 2130 Morphine Sulfate 2 MG Q2 HRS NEEDED PRN 09/28 0745 AC 09/30 IV 0356 Oxycodone HCl 5 MG Q4P PRN 09/27 1600 AC PO Oxycodone HCl 10 MG Q4P PRN 09/27 1600 AC 09/29 PO 0312 Pantoprazole Sodium 40 MG DAILY 09/27 1537 AC 09/30 IV 0854 Review of Systems Review of Systems Constitutional: Reports: no symptoms. EENTM: Reports: no symptoms. Cardiovascular: Reports: no symptoms. Respiratory: Reports: short of breath. GI: Reports: no symptoms. Genitourinary: Reports: no symptoms. Musculoskeletal: Reports: muscle pain. Skin: Reports: no symptoms. Neurological/Psychological: Reports: no symptoms. Hematologic/Endocrine: Reports: no symptoms. Immunologic/Allergic: Reports: no symptoms. All Other Systems: Reviewed and Negative Past History Medical History Blood Transfusion Hx: Yes Neurological: NONE EENT: NONE Cardiovascular: DVT PE ON LUNGS Respiratory: NONE Gastrointestinal: ulcerative colitis Hepatic: NONE Renal: NONE Musculoskeletal: NONE Psychiatric: NONE Endocrine: NONE Blood Disorders: anemia, DVT, PE Cancer(s): NONE ACTUARIAL MANAGER/Reproductive: NONE Surgical History Surgical History: 1 Psychosocial History Where Do You Live? Home Services at Home: None Smoking Status: Former Smoker Illicit Drug Use: denies illicit drug use Functional Ability ADLs Independent: dressing, eating, toileting, bathing. Ambulation: independent IADLs Independent: shopping, housework, finances, food prep, telephone, transportation , medication admin. Exam & Diagnostic Data Last 24 Hrs of Vital Signs/I&O Vital Signs Date Time Temp Pulse Resp B/P B/P Pulse O2 O2 Flow FiO2 Mean Ox Delivery Rate 10/01 799 100 Non 100% ReBreather 09/30 08 98.2 84 24 122/86 100 Non 100% ReBreather 09/30 0400 100 Non 100% ReBreather 09/30 0000 100 Non 100% ReBreather 09/29 2221 98.9 96 24 120/86 99 Non 100% ReBreather 09/29 1519 98.1 70 18 146/82 99 Intake & Output 09/30 1600 09/30 0809/30 0000 Intake Total 583 175 Output Total 230 200 Balance 353 -25 Intake, IV 583 75 Intake, Oral 100 Output, Stool 20 50 Output, Urine 210 150 Patient 130 lb Weight Physical Exam General Appearance: well developed/nourished, no apparent distress, alert, awake Head: atraumatic, normal appearance Respiratory: chest non-tender, lungs clear (poor effort), accessory muscle use, crepitus on palpation Cardiovascular: regular rate/rhythm Gastrointestinal: normal bowel sounds, soft, Ileostomy with small omount of liquid dark green color stool in bag, Incision sites clean, dry and intact Extremities: normal inspection, no edema Last 48 Hrs of Labs/Terence: Laboratory Tests 09/30/17 1020: PT 13.2 H, INR 1.21 H 09/30/17 0400: Anion Gap 5, Estimated GFR > 60, BUN/Creatinine Ratio 16.3, CBC w Diff MAN DIFF ORDERED, RBC 4.06 L, MCV 87.0, MCH 27.8, MCHC 31.9 L, RDW 15.0 H, MPV 6.6 L, Gran % 93.3 H, Lymphocytes % 2.5 L, Monocytes % 4.2, Eosinophils % 0, Basophils % 0, Absolute Granulocytes 26.3 H, Segmented Neutrophils 83 H, Band Neutrophils 8 H, Absolute Lymphocytes 0.7 L, Lymphocytes 4 L, Monocytes 5, Absolute Monocytes 1.2 H, Absolute Eosinophils 0, Absolute Basophils 0, Platelet Estimate ADEQUATE, Polychromasia 1+, Hypochromic-Microcytic 2+, Basophilic Stippling RARE, Anisocytosis 1+ 09/29/17 0605: Anion Gap 3 L, Estimated GFR > 60, BUN/Creatinine Ratio 12.5, Phosphorus 3.8, Magnesium 1.9, Troponin I < 0.01, CBC w Diff NO MAN DIFF REQ, RBC 4.07 L, MCV 87.1, MCH 27.4, MCHC 31.5 L, RDW 15.4 H, MPV 6.1 L, Gran % 87.2 H, Lymphocytes % 5.3 L, Monocytes % 6.9, Eosinophils % 0.1, Basophils % 0.5, Absolute Granulocytes 11.8 H, Absolute Lymphocytes 0.7 L, Absolute Monocytes 0.9 H, Absolute Eosinophils 0, Absolute Basophils 0.1 09/29/17 0600: Phosphorus Cancelled, CBC w Diff Cancelled, WBC Cancelled, RBC Cancelled, Hgb Cancelled, Hct Cancelled, MCV Cancelled, MCH Cancelled, MCHC Cancelled, RDW Cancelled, Plt Count Cancelled, MPV Cancelled Diagnostic Data CXR Results IMPRESSION: 1. Large right-sided pneumothorax is again seen with partial collapse of the right lung and likely mild component of tension pneumothorax. Chest tube decompression is recommended. 2. There is also subtle pneumomediastinum. 3. Extensive subcutaneous emphysema, slightly improved when compared to prior exam. 4. Persistent left mid and lower lung opacity, suspicious for pneumonia. 5. Gaseous distention of the stomach is seen, likely due to aerophagia. Clinical correlation requested. Assessment/Plan CRCU Impression/Plan: Mr. Baltazar is a 32-year-old gentleman with past medical history significant for right lower extremity DVT and PE on Pradaxa(February 2017) and refractory ulcerative colitis who was admitted directly to surgical service for laparoscopic total proctocolectomy with formation of ileoanal J-pouch and diverticular loop ileostomy, postop day 3, was transferred to the ICU yesterday evening after on chest x-ray he was found to have a moderate right sided pneumothorax and extensive subcutaneous emphysema about the neck and chest. Problem List 1. Hx of ulcerative colitis s/p laparoscopic total proctocolectomy with formation of ileoanal J-pouch and diverticular loop ileostomy, POD 3 2. Moderate right-sided pneumothorax 3. Subcutaneous emphysema 4. History of RUE DVT and PE on Pradaxa 5. Leukocytosis likely steroid-induced - Continue to moniyor in ICU - Currently npo - On DW NSat 75ml/hr - On 100% NRB mask. - Continuous o2 sat monitoring - Repeat chest x-ray this morning showed persistent right-sided pneumothorax(no improvement in size), patient will have a Pigtail catheter placed today by IR. - Repeat chest x-ray in a.m. - Follow-up surgery recommendations - Adequate Pain managment. - Joseph Cather in place - Patient is on stress dose hydrocortisone, we will continue and taper gradually. - He had an elevated WBC count of 28.2 this morning, remains afebrile, likely secondary to steroid use. Continue to monitor off antibiotics. - Continue to hold Pradaxa. Spoke with Dr. Bartholomew,pt's manager of loss prevention operations, regarding the pradaxa. Said pt's with UC are at increased risk of blood clots thats why she advised him to keep taking it atleast until 3 months after the surgery but its upto the primary team when to resume pradaxa after the surgery. DVT prophylaxis; Alps and subcutaneous heparin Patient is full code Problem List: 1. Ulcerative colitis 2. S/P total colectomy Consult Acknowledgment - Thank you for your consult request. Markel Martines MD 09/30/17 1028: Assessment/Plan CRCU Other Findings/Comments: Markel Johnson M.D. have examined this patient, reviewed available EMR data, personally reviewed images, discussed with resident/PA/GROCERY CARRIER, discussed management plan with housestaff and nursing staff, discussed managment plan all of healthcare providers, discussed management plan with patient and/or family, agreed with resident/PA/GROCERY CARRIER. The past history and parts of the chart have been autopopulated. Impression 32 year old man * right sided mod/large pneumothorax requiring decompression/chest tube * s/p abdominal surgery for UC * hx of RUE DVT/PE - on pradaxa - followed by manager of loss prevention operations * leukocytosis - likely stress/inflammation/steroid induced Plan -IR guided chest tube for pneumothorax, f/u ct surgery recommendations -on steroids for UC -pradaxa on hold given recent surgery and planned procedures - housestaff to contact hematology to discuss timing to resume pradaxa -would watch off abx for the time being -post procedure if imaging of the abdomen is considered, then would include the chest -iv hydration while NPO DVT prophylaxis at all times D/w family, surgical team, patient, housestaff TTS 45 min Consult Acknowledgment - Thank you for your consult request.
--- NOTE | 2017-09-30 08:45 | PN- General Surgery ---
Surgical Brief Attending Note Brief Attending Note: Patient moved to the ICU overnight and there are to finding of right sided pneumothorax. Patient remains afebrile with stable vital signs overnight. O2 sat 100% on nonrebreather mask Patient continues to complain of pain with deep inspiration, but denies abdominal pain On exam his abdomen is softly distended but nontender. Ileostomy continues to put out a small amount of thin green stool Patient significant increase in leukocytosis today. Unclear etiology, question developing pneumonia Patient does not have peritonitis on exam but he is on steroids this could be masking his exam I am considering CT scan of the chest abdomen and pelvis pending findings of this morning's chest x-ray
--- NOTE | 2017-09-30 09:01 | RADIOLOGY REPORT ---
EXAMINATION: XR PORTABLE CHEST CLINICAL INFORMATION: Painful breathing. Placed on 100% nonrebreather for right pneumothorax. Compared to previous film. COMPARISON: Chest x-ray dated 09/29/2017. TECHNIQUE: Portable frontal view of the chest was obtained. FINDINGS: Multiple EKG leads overlie the chest. Extensive subcutaneous emphysema is again seen in the soft tissues of the neck and left lateral chest, extending into the left flank, perhaps slightly decreased when compared to the previous exam. There is a large right-sided pneumothorax with partial collapse of the right lung and secondary opacity in the right mid and lower lung. Compared to the prior exam, size of the pneumothorax may be slightly larger. No significant shift of mediastinum toward the left side is seen, though there is slight widening of the rib interspaces, suggesting an element of mild tension pneumothorax. The left lung appears fully expanded and there is patchy parenchymal opacity in the left mid and lower lung, unchanged from prior exam. No effusion is seen. The cardiomediastinal silhouette is within normal limits in size. There is some lucency seen surrounding the left heart border and the mediastinum, raising the suspicion of pneumomediastinum. Gaseous distention of the stomach and partially included bowel in the upper abdomen is again seen. Bony structures are unremarkable. IMPRESSION: 1. Large right-sided pneumothorax is again seen with partial collapse of the right lung and likely mild component of tension pneumothorax. Chest tube decompression is recommended. 2. There is also subtle pneumomediastinum. 3. Extensive subcutaneous emphysema, slightly improved when compared to prior exam. 4. Persistent left mid and lower lung opacity, suspicious for pneumonia. 5. Gaseous distention of the stomach is seen, likely due to aerophagia. Clinical correlation requested. This critical result was discussed with FADY Hoffman, 09/30/2017, 8:47 AM and it was ascertained that the content and urgency of this report was understood at the time of direct communication.
[2017-09-30 10:38] LABS: PT 13.2 SEC (9.4-12.5)
--- NOTE | 2017-09-30 14:01 | RADIOLOGY REPORT ---
EXAMINATION:\H\ \N\XR CHEST CLINICAL INFORMATION: Pneumothorax. Chest tube placement. COMPARISON: Portable chest x-ray done earlier this morning. TECHNIQUE: AP portable semierect view of the chest was obtained. FINDINGS: The right-sided pigtail catheter chest tube has successfully reduced the majority of the right-sided pneumothorax. A small anterior basilar pneumothorax persists. Pneumomediastinum also persists. The subcutaneous emphysema in the neck and chest wall has increased. There is subcutaneous emphysema paralleling the lateral left chest wall and left flank as seen on the prior film. A small left pleural effusion is seen. The left lower lobe consolidation and/or atelectasis has not improved. IMPRESSION: 1. Significant reduction of the right-sided pneumothorax. 2. Small residual anterior pneumothorax on the right, and persistent pneumomediastinum. 3. Increasing subcutaneous emphysema. 4. No improvement in the left lower lobe consolidation.
--- NOTE | 2017-09-30 14:48 | CT SCAN REPORT ---
EXAMINATION: CT CHEST TUBE INSERTION CLINICAL HISTORY: This patient is a 32 years old male with right pneumothorax. A right chest tube is requested. PROCEDURES: 1. Limited CT of the chest. 2. Placement of a 10 Fr nonlocking chest tube under CT-guidance. PHYSICIANS: Dr. Leatha Scott (attending) MONITORING: The procedure was performed with conscious sedation and analgesia under my direct supervision. Continuous blood pressure, pulse oximetry as well as heartrate monitoring was performed by an independent registered nurse. Physician intraservice sedation time was 22 minutes. MEDICATIONS: 1. Versed 1.5 mg and fentanyl 75 IV mcg were administered. 2. Lidocaine 1%, 8 mL, SQ. COMPLICATIONS: None ESTIMATED BLOOD LOSS: <5 mL SPECIMENS: None IMPLANT: 10 Moldovan NONLOCKING chest tube CONTRAST: None TOTAL DLP: 242.63 mGy-cm SITE MARKING: As part of the preprocedure verification policy, a site marking procedure was initiated. Due to the nature the procedure, the insertion site could not be predetermined thus invoking the policy of exemption to site laterality and marking. Insertion site marking was performed in the procedure room in conjunction with imaging confirmation. PROCEDURE NOTE: Informed consent was obtained from the patient prior to the procedure. During this process, the procedure and potential alternatives were explained along with the intended outcome and benefits. The risks of the procedure, including the possibility of an unsuccessful procedure, as well as the risk of not doing the procedure, were discussed. The patient was given the opportunity to ask questions regarding the procedure and appeared competent to make decisions. A signed consent form documenting this discussion was placed in the medical record. A time-out procedure was performed. The patient was placed in the supine position on the CT table. A limited CT of the chest was performed to localize the collection and choose appropriate needle access entry point and trajectory. The right chest was prepped and draped in usual sterile fashion. Elements of maximal sterile barrier technique followed including use of cap, mask, sterile gown, sterile gloves, a sterile full body drape and hand hygiene. Also followed skin preparation with 2% chlorhexidine for cutaneous antisepsis, and sterile ultrasound preparation with sterile gel and probe cover when applicable. The skin and subcutaneous tissues were anesthetized with lidocaine. Under CT-guidance, a 5-Fr One Step catheter was advanced into the right pneumothorax. A 0.035 in Amplatz super stiff wire was advanced through the needle and coiled in the pneumothorax apically. The catheter was removed and exchanged for serial fascial dilators followed by a 10-Fr NONLOCKING multiside hole catheter. Catheter position within the pneumothorax was confirmed by CT evaluation. The catheter was sutured to skin with 0 silk suture. The pneumothorax was maximally aspirated and approximately 25 mL of slightly blood-tinged clear pleural fluid was aspirated. The patient tolerated the procedure well. FINDINGS: 1. Pneumothorax located in the right chest. 2. Successful placement of a right-sided 10-Fr NONLOCKING chest tube. IMPRESSION: Successful placement of a NONLOCKING right apical chest tube PLAN: 1. The patient was stable after the procedure and was transferred to the interventional recovery area. The patient will be transferred back to the ICU when stable by sedation protocol. 2. The tube should be placed to continuous low wall suction or waterseal as per directed by Dr. Nava of thoracic surgery.
[2017-09-30 16:00] VITALS: BP 124/80
--- NOTE | 2017-09-30 19:27 | Event Note ---
Event Note Event Note: Patient was tachycardic ranging in between 120-130. Patient denies any shortness of breath, saturating at 97% on 1 L nasal cannula. Status post right-sided pigtail catheter chest tube placement for right sided pneumothorax with some small anterior basilar pneumothorax persistence, Increasing subcutaneous emphysema. Given his history of right upper extremity DVT, tachycardia, hypoxia will get CTA chest to rule out pulmonary embolism. Will also look for any worsening of right sided pneumothorax * Follow-up CTA chest for any PE. * Discussed with Dr. Martines * Discussed with surgical p.a/Dr. Santiago-advised to get CAT scan abdomen/pelvis with oral and IV contrast. * Discussed with patient in detail
--- NOTE | 2017-09-30 19:36 | Event Note ---
See Addendum Event Note Event Note: Patient with tachycardia jumping to 130s, denies sob/cp/n/v. some abdominal pain. difficult to do deep breathing, though now feels "much better" after ir guided ct insertion for R ptx this pm. CT checked- to lcws, tubing/attachment intact. no AL. minimal strawcolored drainage. Pulm- decreased bs r apex posteriorly, +bs throughout otherwise LAMIN Santiago, ICU residents. Will get CTA chest & CT a/p with contrast. will closely monitor. dw pt, in agreement with plan.
--- NOTE | 2017-09-30 23:29 | CT SCAN REPORT ---
EXAMINATION: CT ANGIOGRAM CHEST CT ABDOMEN AND PELVIS WITH CONTRAST CLINICAL INFORMATION: Postoperative. COMPARISON: CT chest 09/30/2017. TECHNIQUE: A noncontrast localizer was performed, followed by the administration of 95 mL Optiray [address] of the chest was then performed. Coronal and sagittal reformatted and 3-D technique MIP images of the chest were completed at the CT scanner and reviewed on the PACS workstation. No adverse effects were reported. Images were then performed through the abdomen and pelvis. Coronal and sagittal reformatted images performed at CT scanner by technologist. DLP: 680.61 mGy-cm FINDINGS: CTA CHEST: VASCULAR: The main pulmonary artery, secondary and tertiary branches of the pulmonary artery are normally opacified with no evidence of pulmonary embolism. The aorta and great vessels are unremarkable. MEDIASTINUM: No mediastinal mass. No significant lymphadenopathy. There is pneumomediastinum. LUNGS: There is dependent bibasilar consolidation/atelectasis. PLEURA: Patient has had placement of a right-sided chest tube. The volume of the right pneumothorax has nearly been entirely evacuated. Minimal residual apical pneumothorax remains. FLUID: Moderate volume left pleural effusion and small volume right pleural effusion. AXILLA: There is subcutaneous emphysema along the anterior chest. This extends into the axillary regions bilaterally. There is fluid in the right axilla. This is a density measurement of 5 Hounsfield units, simple fluid. CT SCAN ABDOMEN PELVIS: LIVER, GALLBLADDER, AND BILIARY TREE: The liver is normal in size, shape, and attenuation. No focal hepatic lesion or biliary ductal dilatation is present. The gallbladder is unremarkable with no evidence of radiopaque gallstones, gallbladder wall thickening, or obvious pericholecystic inflammatory changes. PANCREAS: Unremarkable. SPLEEN: Unremarkable. ADRENAL GLANDS: Unremarkable. KIDNEYS AND URETERS: The kidneys are normal in size, shape, and attenuation. No hydronephrosis, hydroureter, or calculi seen. No perinephric stranding. BLADDER: Joseph catheter within the bladder. There is urine and air in the bladder. GASTROINTESTINAL TRACT: There is dilatation distention of the proximal to mid small bowel loops. The entire small bowel is dilated down to the ostomy consistent with ileus, pseudoobstruction, related to the recent surgery. Patient's had a colectomy with placement of a J-pouch. MESENTERY: There is a small volume of fluid in the abdomen and pelvis. No free air. ABDOMINAL WALL: There is a line of surgical clips along the central pelvis. There is subcutaneous air in the pelvis and scrotum. Subcutaneous emphysema extending into the soft tissues of the thigh. LYMPH NODES: Normal. VASCULAR: Unremarkable. PELVIC VISCERA: Unremarkable. OSSEOUS STRUCTURES: Unremarkable. IMPRESSION: 1. No evidence of pulmonary embolism. 2. Bibasilar dependent atelectasis/infiltrate. 3. Bilateral pleural effusions. 4. Right-sided chest tube in place. Trace right-sided pneumothorax remaining. There is subcutaneous emphysema around the chest. There is pneumomediastinum. 5. Status post colectomy. Ostomy in right lower quadrant. Dilated small bowel loops consistent with postop ileus. 6. Small amount of free fluid in the abdomen. 7. Surgical clips in the central pelvis. There is subcutaneous air in the abdominal wall extending down into the scrotum and upper thigh. This critical result was discussed with Dr. Webster on 09/30/2017, 10:[address] Santiago 09/30/2017, 11:18 PM and it was ascertained that the content and urgency of the report was understood at the time of direct communication.
[2017-10-01] VITALS: BP 134/78
--- NOTE | 2017-10-01 00:06 | Event Note ---
Event Note Event Note: Received a call from Radiology that the pt didnot have any e/o PE, but has some pleural effusion. Also was found to have proximal mid bowel air fluid level at the transition point, likely obstruction. Discussed these findings w/ the surgical PA who will discuss w/ Dr. Santiago and place an NG tube. Also discussed about the pneumothorax, and pneumomediastinum, which the surgical team is aware of. Await final read.
[2017-10-01 05:05] LABS: ABSOLUTE BASOPHIL COUNT 0 /CUMM (0.0-0.2); ABSOLUTE EOSINOPHIL COUNT 0 /CUMM (0.0-0.7); ABSOLUTE GRANULOCYTE CT 24.5 /CUMM (1.4-6.5); ABSOLUTE LYMPH COUNT 0.5 /CUMM (1.2-3.4); ABSOLUTE MONOCYTE COUNT 1.4 /CUMM (0.10-0.60); BASOPHIL % 0 % (0.0-2.0); EOSINOPHIL % 0 % (0-5); GRANULOCYTE % 92.9 % (42.2-75.2); HEMATOCRIT 30.9 % (42-52); MEAN CORPUSCULAR HGB 27.4 PG (27.0-31.0); MEAN CORPUSCULAR HGB CONC 31.4 G/DL (33.0-37.0); MEAN CORPUSCULAR VOLUME 87.2 FL (80.0-94.0); MEAN PLATELET VOLUME 6.4 FL (7.4-10.4); PLATELET COUNT 446 /CUMM (130-400); RED BLOOD CELL CT 3.54 /CUMM (4.70-6.10); WHITE BLOOD CELL COUNT 26.4 /CUMM (4.8-10.8)
--- NOTE | 2017-10-01 05:54 | PN- General Surgery ---
See Addendum Subjective Subjective: tachy to 130s last shahla, had cta- neg for pe, +bl effusions, +small r ptx despite ct. CT a/p showed dilated stomach/sb- ngt placed ith 300cc green bilious output on insertion. also with low uo shahla shift (120cc), bolused and increased ivf rate. pt feeling ok- has not gotten out of bed entire hospital stay. pain controlled. Objective Vital Signs and I&Os Vital Signs Date Time Temp Pulse Resp B/P B/P Pulse O2 O2 Flow FiO2 Mean Ox Delivery Rate 10/01 0400 97 Nasal 2.0L Cannula 10/01 0000 95 Nasal 2.0L Cannula 10/01 0000 99.2 108 24 134/78 95 Nasal 2.0L Cannula 09/30 2000 93 Room Air Room Air 09/30 1600 97 Nasal 1.0L Cannula 09/30 1600 98.7 102 18 124/80 100 Nasal 1.0L Cannula 09/30 1200 100 Non 100% ReBreather 09/30 0800 100 Non 100% ReBreather 09/30 0800 98.2 84 24 122/86 100 Non 100% ReBreather Intake & Output 10/01 08/ 0000 / 1600 09/30 0800 / 0000 09/29 1600 Intake Total 2119 756 583 175 750 Output Total 470 150 230 200 450 Balance 1649 606 353 -25 300 Intake, IV 709 756 583 75 Intake, Oral 1410 100 750 Output, Chest 120 Tube Drainage Output, Stool 240 20 50 300 Output, Urine 110 150 210 150 150 Patient 130 lb Weight Physical Exam: gen-nad. ngt in place card- s1s2 pulm- r ct in place- no al. course bs throughout abd- mild ttp, stoma pink, ilda in place, brown watery stool in bag, dressing cdi ext- alps on bl, calves soft nt CT: 70/120/na, serous OSTOMY: 350/240/0 dark brown watery CANTU: 350/110/150, clear yellow NGT: 650 since insertion at az, dark bilious TOTAL IN: 1730 overnight Current Medications: Current Medications Sig/Sienna Start time Last Medication Dose Route Stop Time Status Admin Acetaminophen 1,000 MG Q8 10/01 06 AC IV 10/02 06 Acetaminophen 1,000 MG Q8 09/30 2200 DC PO Acetaminophen 1,000 MG Q8 09/27 1526 DC 09/30 PO 0622 Ampicillin Sodium/ 1,500 MG Q6 09/30 1200 AC 10/01 Sulbactam Sodium IV 10/01 1159 0038 Sodium Chloride 100 ML Dextrose/Sodium 1,000 ML Q13H 09/29 2000 AC 09/30 Chloride IV 2232 Diphenhydramine HCl 50 MG Q6P PRN 09/27 1545 AC IV Fentanyl Citrate 0 .STK-MED ONE 09/30 1104 DC .ROUTE Gabapentin 300 MG BID 09/27 2100 DC 09/30 PO 0854 Heparin Sodium 5,000 UNIT Q8 09/28 0745 AC 09/30 (Porcine) SC 2232 Hydrocortisone 5 MG Q12 10/02 2099 AC Sodium Succinate IV 10/03 900 Hydrocortisone 10 MG Q12 10/01 2100 AC Sodium Succinate IV 10/02 0801 Hydrocortisone 20 MG Q12 09/30 2100 AC 09/30 Sodium Succinate IV 10/01 0901 2232 Hydrocortisone 30 MG Q12 09/29 2100 DC 09/30 Sodium Succinate IV 09/30 0901 0854 Lidocaine 1 ML .STK-MED ONE 09/30 1304 DC ID 09/30 1305 Lorazepam 0.5 MG Q4P PRN 10/01 0015 AC 10/01 IV 0020 Lorazepam 0.5 MG Q8P PRN 09/29 1945 DC PO 10/06 1944 Meclizine HCl 12.5 MG TID PRN 09/27 1815 AC 09/27 PO 2013 Midazolam HCl 0 .STK-MED ONE 09/30 1104 DC .ROUTE Morphine Sulfate 2 MG Q2-3 HRS PRN 10/01 001 IV Morphine Sulfate 4 MG Q2-3 HRS NEEDED.. 09/29 0800 AC 09/30 IV 2232 Morphine Sulfate 2 MG Q2 HRS NEEDED PRN 09/28 0745 DC 09/30 IV 0356 Ondansetron HCl 4 MG Q6P PRN 10/01 001 AC 10/01 IV 0018 Oxycodone HCl 5 MG Q4P PRN 09/27 1600 DC PO Oxycodone HCl 10 MG Q4P PRN 09/27 1600 DC 09/29 PO 0312 Pantoprazole Sodium 40 MG DAILY 09/27 1537 AC 09/30 IV 0854 Phenol 2 SPRAY Q2P PRN 10/01 0015 AC EXT Sodium Chloride 1,000 ML BOLUS ONE 10/01 14 DC 10/01 IV 10/01 0114 0018 Results Last 48 Hours of Labs: Laboratory Tests 10/01 09/30 0415 1020 Chemistry Sodium (137 - 145 mmol/L) 132 L Potassium (3.5 - 5.1 mmol/L) 4.2 Chloride (98 - 107 mmol/L) 101 Carbon Dioxide (22 - 30 mmol/L) 26 Anion Gap (5 - 16) 4 L BUN (9 - 20 mg/dL) 12 Creatinine (0.7 - 1.2 mg/dL) 0.7 Estimated GFR (>60 ml/min) > 60 BUN/Creatinine Ratio (7 - 25 %) 17.1 Phosphorus (2.5 - 4.5 mg/dL) 3.8 Magnesium (1.6 - 2.3 mg/dL) 1.9 Coagulation PT (9.4 - 12.5 SEC) 13.2 H INR (0.90 - 1.17) 1.21 H Hematology CBC w Diff MAN DIFF ORDERED WBC (4.8 - 10.8 /CUMM) 26.4 H RBC (4.70 - 6.10 /CUMM) 3.54 L Hgb (14.0 - 18.0 G/DL) 9.7 L Hct (42 - 52 %) 30.9 L MCV (80.0 - 94.0 FL) 87.2 MCH (27.0 - 31.0 PG) 27.4 MCHC (33.0 - 37.0 G/DL) 31.4 L RDW (11.5 - 14.5 %) 15.0 H Plt Count (130 - 400 /CUMM) 446 H MPV (7.4 - 10.4 FL) 6.4 L Gran % (42.2 - 75.2 %) 92.9 H Lymphocytes % (20.5 - 51.1 %) 1.9 L Monocytes % (1.7 - 9.3 %) 5.2 Eosinophils % (0 - 5 %) 0 Basophils % (0.0 - 2.0 %) 0 Absolute Granulocytes (1.4 - 6.5 /CUMM) 24.5 H Segmented Neutrophils (42.2 - 75.2 %) 92 H Absolute Lymphocytes (1.2 - 3.4 /CUMM) 0.5 L Lymphocytes (20.5 - 51.1 %) 3 L Monocytes (1.7 - 9.3 %) 5 Absolute Monocytes (0.10 - 0.60 /CUMM) 1.4 H Absolute Eosinophils (0.0 - 0.7 /CUMM) 0 Absolute Basophils (0.0 - 0.2 /CUMM) 0 Platelet Estimate (ADEQUATE) INCREASED Polychromasia 1+ Hypochromic-Microcytic 1+ Poikilocytosis 1+ Ovalocytes 1+ Elliptocytes FEW Other Body Source Fld Total RBCs Counted (%) 100 05/07 05/06 0400 0605 Chemistry Sodium (137 - 145 mmol/L) 133 L 134 L Potassium (3.5 - 5.1 mmol/L) 4.6 4.5 Chloride (98 - 107 mmol/L) 100 101 Carbon Dioxide (22 - 30 mmol/L) 28 30 Anion Gap (5 - 16) 5 3 L BUN (9 - 20 mg/dL) 13 10 Creatinine (0.7 - 1.2 mg/dL) 0.8 0.8 Estimated GFR (>60 ml/min) > 60 > 60 BUN/Creatinine Ratio (7 - 25 %) 16.3 12.5 Phosphorus (2.5 - 4.5 mg/dL) 3.8 Magnesium (1.6 - 2.3 mg/dL) 1.9 Troponin I (<0.11 ng/ml) < 0.01 Hematology CBC w Diff MAN DIFF ORDERED NO MAN DIFF REQ WBC (4.8 - 10.8 /CUMM) 28.2 H 13.5 H RBC (4.70 - 6.10 /CUMM) 4.06 L 4.07 L Hgb (14.0 - 18.0 G/DL) 11.3 L 11.2 L Hct (42 - 52 %) 35.3 L 35.5 L MCV (80.0 - 94.0 FL) 87.0 87.1 MCH (27.0 - 31.0 PG) 27.8 27.4 MCHC (33.0 - 37.0 G/DL) 31.9 L 31.5 L RDW (11.5 - 14.5 %) 15.0 H 15.4 H Plt Count (130 - 400 /CUMM) 495 H 484 H MPV (7.4 - 10.4 FL) 6.6 L 6.1 L Gran % (42.2 - 75.2 %) 93.3 H 87.2 H Lymphocytes % (20.5 - 51.1 %) 2.5 L 5.3 L Monocytes % (1.7 - 9.3 %) 4.2 6.9 Eosinophils % (0 - 5 %) 0 0.1 Basophils % (0.0 - 2.0 %) 0 0.5 Absolute Granulocytes (1.4 - 6.5 /CUMM) 26.3 H 11.8 H Segmented Neutrophils (42.2 - 75.2 %) 83 H Band Neutrophils (0.0 - 5.0 %) 8 H Absolute Lymphocytes (1.2 - 3.4 /CUMM) 0.7 L 0.7 L Lymphocytes (20.5 - 51.1 %) 4 L Monocytes (1.7 - 9.3 %) 5 Absolute Monocytes (0.10 - 0.60 /CUMM) 1.2 H 0.9 H Absolute Eosinophils (0.0 - 0.7 /CUMM) 0 0 Absolute Basophils (0.0 - 0.2 /CUMM) 0 0.1 Platelet Estimate (ADEQUATE) ADEQUATE Polychromasia 1+ Hypochromic-Microcytic 2+ Basophilic Stippling RARE Anisocytosis 1+ 05/06 0600 Chemistry Phosphorus Cancelled Hematology CBC w Diff Cancelled WBC Cancelled RBC Cancelled Hgb Cancelled Hct Cancelled MCV Cancelled MCH Cancelled MCHC Cancelled RDW Cancelled Plt Count Cancelled MPV Cancelled Assessment/Plan Assessment/Plan A- POD4 sp robo total proctocolectomy with DLI, POD1 sp IR guided R CT placement for PTX, with NGT in place, still tachycardic though PE ruled out overnight. tachy 2/2 ?pain ?ptx ?pleural effusions ?hypovolemia ?multifactorial. P- cont ngt, npo ivf strict i&os prn painmeds cont cantu NEEDS oob. CT to lcws, fu cxr will dw attending Core Measures Venous Thromboembolism VTE Risk Factors No risk factors No Mechanical VTE Prophylaxis d/t N/A MechProphylax Ordered No VTE Pharm Prophylaxis d/t NA PharmProphylax ordered
--- NOTE | 2017-10-01 07:24 | PN- Resident CRCU ---
Irving FRAUSTO,Abraham 10/01/17 0723: Subjective HPI/CRCU Issues: NGT tube placed last night as CTA/CT abd revealed possible obstruction vs ileus. 24 Hour Events: MAXIMUM TEMPERATURE 100.3 Heart rate: 56021 BP: 627475/6286 Oxygen saturation 48120 percent. Currently on 2 L Objective Vital Signs & I&O Last 8 Hrs of Vitals and I&O: Intake & Output 10/01 0800 Intake Total 1800 Output Total 1420 Balance 380 Intake, IV 1800 Intake, Oral 0 Output, Chest 70 Tube Drainage Output, 650 Gastric Drainage Output, Stool 350 Output, Urine 350 Exam General Appearance: no apparent distress, alert, awake Ears, Nose, Throat: NGT with green bilouis drainage Respiratory: anterior lung sounds clear, right chest tube Cardiovascular: tachycardia Gastrointestinal: soft, non-tender, decreased bowel sounds Multiple diffuse surgical scars, mildly distended, R ileostomy. Extremities: no lower extremity edema Skin: diffuse subcutaneous emphysema Current Medications: Current Medications Sig/Sienna Start time Last Medication Dose Route Stop Time Status Admin Acetaminophen 1,000 MG Q8 10/01 0600 AC 10/01 IV 10/02 0601 0556 Acetaminophen 1,000 MG Q8 09/30 2200 DC PO Acetaminophen 1,000 MG Q8 09/27 1526 DC 09/30 PO 0622 Ampicillin Sodium/ 1,500 MG Q6 09/30 1200 DC 10/01 Sulbactam Sodium IV 10/01 1159 0557 Sodium Chloride 100 ML Dextrose/Sodium 1,000 ML Q13H 09/29 2000 AC 09/30 Chloride IV 2232 Diphenhydramine HCl 50 MG Q6P PRN 09/27 1545 AC IV Gabapentin 300 MG BID 09/27 2100 DC 09/30 PO 0854 Heparin Sodium 5,000 UNIT Q8 09/28 0745 AC 10/01 (Porcine) SC 0557 Hydrocortisone 5 MG Q12 10/02 2099 AC Sodium Succinate IV 10/03 09 Hydrocortisone 10 MG Q12 10/01 2099 AC Sodium Succinate IV 10/02 900 Hydrocortisone 20 MG Q12 09/30 2100 DC 10/01 Sodium Succinate IV 10/01 0901 0810 Lidocaine 1 ML .STK-MED ONE 09/30 1304 DC ID 09/30 1305 Lorazepam 0.5 MG Q4P PRN 10/01 0015 AC 10/01 IV 0020 Lorazepam 0.5 MG Q8P PRN 09/29 194 DC PO 10/06 194 Magnesium Sulfate 1 GM ONCE ONE 10/01 08 DC 10/01 Dextrose/Water 100 ML IV 10/01 1159 0810 Meclizine HCl 12.5 MG TID PRN 09/27 1815 AC 09/27 PO 2013 Morphine Sulfate 2 MG Q2-3 HRS PRN 10/01 0015 AC IV Morphine Sulfate 4 MG Q2-3 HRS NEEDED.. 09/29 0800 AC 09/30 IV 2232 Morphine Sulfate 2 MG Q2 HRS NEEDED PRN 09/28 0745 DC 09/30 IV 0356 Ondansetron HCl 4 MG Q6P PRN 10/01 0015 AC 10/01 IV 0018 Ondansetron HCl 4 MG .STK-MED ONE 09/30 2357 DC IM 09/30 2358 Oxycodone HCl 5 MG Q4P PRN 09/27 1600 DC PO Oxycodone HCl 10 MG Q4P PRN 09/27 1600 DC 09/29 PO 0312 Pantoprazole Sodium 40 MG DAILY 09/27 1537 AC 10/01 IV 0810 Phenol 2 SPRAY Q2P PRN 10/01 0015 AC EXT Sodium Chloride 1,000 ML BOLUS ONE 10/01 0015 DC 10/01 IV 10/01 0114 0018 Impression/Plan Impression/Problem List Impression: 32-year-old gentleman with past medical history significant for right lower extremity DVT and PE on Pradaxa(February 2017) and refractory ulcerative colitis who was admitted directly to surgical service for laparoscopic total proctocolectomy with formation of ileoanal J-pouch and diverticular loop ileostomy, postop day 4, was transferred to the ICU yesterday after on chest x- ray he was found to have a moderate right sided pneumothorax and extensive subcutaneous emphysema about the neck and chest. Problem List: #Respiratory #Post surgical complications of : Moderate right-sided pneumothorax, Bilateral pleural effusions, Pneumomediastinum, Subcutaneous emphysema, atelectasis Lungs reexpanded with chest tube. Subq emphysema decreasing. -f/u tomorrow cxr. dc chest tube per ct surgery if no more pneumothorax -cont incentive spirometry -cont surgery and CT surgery recs Infection #Persistent leukocytosis Most likely due to stress/steroids. Pt received 4 doses of unasyn -cont off abx Cardiac #Persistent tachycardia CTA negative for PE. Possibly due to pain -cont pain control -increased fluids last night from 75 to 125/hr for borderline bp Hemeonc #History of RUE DVT and PE on Pradaxa -holding pradaxa. cont sc heparin Metabolic -repleting electrolytes prn Alimentary #Hx of ulcerative colitis s/p laparoscopic total proctocolectomy with formation of ileoanal J-pouch and diverticular loop ileostomy, POD 4 -Ileus found on CT abdomen, continue NG tube and NPO -cont solucortef taper -cont zofran, protonix Neuro -No Issues Skin #Flushing -possibly due to steroids. Cont to monitor for fevers #Subq emphysema -cont to monitor as stated above Housekeeping -NGT -R ileostomy -R chest tube -cont CORRALES -NPO -FULL CODE -DVT PPX: heparin subq Problem List: 1. Ulcerative colitis 2. S/P total colectomy 3. Pneumothorax 4. Leukocytosis 5. Pleural effusion 6. Pneumomediastinum Pain Ratin Tomorrow's Labs & Rationales: icu bundle cbc Plan DVT/Prophylaxis: heparin subq Markel Martines MD 10/01/17 1341: Attending MD Review Statement Attending Sign Off Attending Cosign Statement: I have: examined this patient, reviewed avalbl EMR data, personally reviewd images, discussd w/resident/PA/BLOOD DONOR UNIT ASSISTANT, discussed mgmt plan w/katharine, discussed mgmt plan w/CM, discussed mgmt plan w/pt, agreed w/resident/PA/BLOOD DONOR UNIT ASSISTANT, amended to note. Other Findings: IMarkel M.D. have examined this patient, reviewed available EMR data, personally reviewed images, discussed with resident/PA/BLOOD DONOR UNIT ASSISTANT, discussed management plan with housestaff and nursing staff, discussed managment plan all of healthcare providers, discussed management plan with patient and/or family, agreed with resident/PA/BLOOD DONOR UNIT ASSISTANT. The past history and parts of the chart have been autopopulated. Impression 32 year old man * right sided mod/large pneumothorax requiring decompression/chest tube * s/p abdominal surgery for UC * hx of RUE DVT/PE - on pradaxa - followed by hard candy batch mixer * leukocytosis - likely stress/inflammation/steroid induced Plan -s/p chest tube, if cxr tomorrow is without evidence of air leak and no pneumothorax will consider removing the chest tube -PE was ruled out -tachycardia can be secondary to pain/discomfort -pradaxa on hold given recent surgery and planned procedures -has left effusion of unclear etiology, currently on unasyn -ngt, iv hydratoin DVT prophylaxis at all times D/w family, surgical team, patient, housestaff TTS 35 min
[2017-10-01 08:00] VITALS: BP 120/78
--- NOTE | 2017-10-01 10:31 | RADIOLOGY REPORT ---
EXAMINATION: XR PORTABLE CHEST CLINICAL INFORMATION: Pain. Pneumothorax status post right chest tube placement. Ileus status post NG tube placement. COMPARISON: CT of the chest dated 09/30/2017. Chest x-ray dated 09/30/2017. TECHNIQUE: Portable AP semierect view of the chest was obtained. FINDINGS: An enteric tube is seen extending into the upper abdomen, projected in the left upper quadrant. A right-sided pleural catheter is seen in the mid right chest. The right lung is now fully expanded with no residual pneumothorax seen. Small pneumomediastinum remains. The degree of subcutaneous emphysema is also decreased. Patchy parenchymal opacities are seen in the mid right and lower right lung, likely representing subsegmental atelectasis. There is persistent opacity in the left mid and lower lung, unchanged. Mild gaseous distention of bowel loops in the upper abdomen is seen. Bony structures are unremarkable. IMPRESSION: 1. No definite residual pneumothorax seen status post right-sided pleural catheter placement. Patchy opacities in right mid and lower lung are noted, likely related to atelectasis. 2. No change in small pneumomediastinum. 3. Decreasing subcutaneous emphysema. 4. No change in patchy left mid and lower lung opacities, most likely representing atelectasis and small effusion.
--- NOTE | 2017-10-01 11:55 | RADIOLOGY REPORT ---
EXAM: AP SEMIERECT PORTABLE VIEW OF THE CHEST/NO CHARGE EXAM CLINICAL INFORMATION: Right-sided pneumothorax status post chest tube placement. COMPARISON: Chest x-ray dated 10/01/2017. FINDINGS: Portable view of the chest was erroneously performed as a duplicate study. No chest x-ray had already been performed at 5:48 AM today. Enteric tube is seen coursing into the left upper quadrant of the abdomen, unchanged. Right mid chest pleural catheter is also unchanged. No significant residual right pneumothorax is seen. Small pneumomediastinum and resolving subcutaneous emphysema again seen. The cardiomediastinal silhouette is normal in size. Lungs bilaterally are symmetrically expanded and again demonstrate atelectatic changes in the right mid and lower lung and patchy opacity either due to atelectasis or pneumonia in the left lung base with associated small effusion, unchanged. Bony structures are unremarkable. IMPRESSION: No interval change in positioning of enteric tube, right-sided chest tube are in the pneumomediastinum and bilateral lung findings as discussed above.
--- NOTE | 2017-10-01 13:28 | PN- Thoracic Surgery ---
Subjective Subjective: Patient is lying in bed with complaints of abdominal pain. His pleuritic chest pain symptoms have resolved since placement of this catheter. Last night he underwent a CT scan of the chest abdomen and pelvis because of tachycardia and a continued high white count. Intrathoracic Marcello there was only a tiny pneumothorax which is probably residual trapped air. Objective Vital Signs and I&Os Vital Signs Date Time Temp Pulse Resp B/P B/P Pulse O2 O2 Flow FiO2 Mean Ox Delivery Rate 10/01 1200 97 Nasal 2.0L Cannula 10/02 799 99 Nasal 2.0L Cannula 10/02 799 97.8 109 20 120/78 99 Nasal 2.0L Cannula 10/01 0400 97 Nasal 2.0L Cannula 10/01 0000 95 Nasal 2.0L Cannula 10/01 0000 99.2 108 24 134/78 95 Nasal 2.0L Cannula 09/30 2000 93 Room Air Room Air 09/30 1600 97 Nasal 1.0L Cannula 09/30 1600 98.7 102 18 124/80 100 Nasal 1.0L Cannula Intake & Output 10/01 1600 10/01 0000 09/30 1600 09/30 0800 05 0000 Intake Total 1800 2119 756 583 175 Output Total 1420 470 150 230 200 Balance 380 1649 606 353 -25 Intake, IV 1800 709 756 583 75 Intake, Oral 0 1410 100 Output, Chest 70 120 Tube Drainage Output, 650 Gastric Drainage Output, Stool 350 240 20 50 Output, Urine 350 110 150 210 150 Patient 130 lb Weight Physical Exam: The breath sounds are clear. His Pleur-evac shows no evidence of air leak on respirations or with cough. Current Medications: Current Medications Sig/Sienna Start time Last Medication Dose Route Stop Time Status Admin Acetaminophen 1,000 MG Q8 10/01 0600 AC 10/01 IV 10/02 0601 0556 Acetaminophen 1,000 MG Q8 09/30 2200 DC PO Acetaminophen 1,000 MG Q8 09/27 1526 DC / PO 0622 Ampicillin Sodium/ 1,500 MG Q6 09/30 1200 DC 08 Sulbactam Sodium IV 10/01 1159 0557 Sodium Chloride 100 ML Dextrose/Sodium 1,000 ML Q13H 09/30 1999 AC 07 Chloride IV 2232 Diphenhydramine HCl 50 MG Q6P PRN 05/04 1545 AC IV Gabapentin 300 MG BID 05/04 2100 DC 09/30 PO 0854 Heparin Sodium 5,000 UNIT Q8 09/28 0745 AC 10/01 (Porcine) SC 0557 Hydrocortisone 5 MG Q12 10/02 2099 AC Sodium Succinate IV 10/03 900 Hydrocortisone 10 MG Q12 10/01 2099 AC Sodium Succinate IV 10/02 900 Hydrocortisone 20 MG Q12 09/30 2100 DC 10/01 Sodium Succinate IV 10/01 0901 0810 Lorazepam 0.5 MG Q4P PRN 10/01 001 AC 10/01 IV 0020 Lorazepam 0.5 MG Q8P PRN 09/29 194 DC PO 10/06 194 Magnesium Sulfate 1 GM ONCE ONE 10/02 799 DC 10/01 Dextrose/Water 100 ML IV 10/01 115 0810 Meclizine HCl 12.5 MG TID PRN 09/27 1815 AC 09/27 PO 2013 Morphine Sulfate 2 MG Q2-3 HRS PRN 10/01 001 AC 10/01 IV 1209 Morphine Sulfate 4 MG Q2-3 HRS NEEDED.. 09/29 08 AC 09/30 IV 2232 Morphine Sulfate 2 MG Q2 HRS NEEDED PRN 09/28 0745 DC 09/30 IV 0356 Ondansetron HCl 4 MG Q6P PRN 10/01 001 AC 10/01 IV 0018 Ondansetron HCl 4 MG .STK-MED ONE 09/30 2357 DC IM 09/30 2358 Oxycodone HCl 5 MG Q4P PRN 09/27 1600 DC PO Oxycodone HCl 10 MG Q4P PRN 09/27 1600 DC 09/29 PO 0312 Pantoprazole Sodium 40 MG DAILY 09/27 1537 AC 10/01 IV 0810 Phenol 2 SPRAY Q2P PRN 10/01 001 AC EXT Sodium Chloride 1,000 ML BOLUS ONE 10/01 001 DC 10/01 IV 10/01 0114 0018 Results Last 48 Hours of Labs: Laboratory Tests 10/01 09/30 0415 1020 Chemistry Sodium (137 - 145 mmol/L) 132 L Potassium (3.5 - 5.1 mmol/L) 4.2 Chloride (98 - 107 mmol/L) 101 Carbon Dioxide (22 - 30 mmol/L) 26 Anion Gap (5 - 16) 4 L BUN (9 - 20 mg/dL) 12 Creatinine (0.7 - 1.2 mg/dL) 0.7 Estimated GFR (>60 ml/min) > 60 BUN/Creatinine Ratio (7 - 25 %) 17.1 Phosphorus (2.5 - 4.5 mg/dL) 3.8 Magnesium (1.6 - 2.3 mg/dL) 1.9 Coagulation PT (9.4 - 12.5 SEC) 13.2 H INR (0.90 - 1.17) 1.21 H Hematology CBC w Diff MAN DIFF ORDERED WBC (4.8 - 10.8 /CUMM) 26.4 H RBC (4.70 - 6.10 /CUMM) 3.54 L Hgb (14.0 - 18.0 G/DL) 9.7 L Hct (42 - 52 %) 30.9 L MCV (80.0 - 94.0 FL) 87.2 MCH (27.0 - 31.0 PG) 27.4 MCHC (33.0 - 37.0 G/DL) 31.4 L RDW (11.5 - 14.5 %) 15.0 H Plt Count (130 - 400 /CUMM) 446 H MPV (7.4 - 10.4 FL) 6.4 L Gran % (42.2 - 75.2 %) 92.9 H Lymphocytes % (20.5 - 51.1 %) 1.9 L Monocytes % (1.7 - 9.3 %) 5.2 Eosinophils % (0 - 5 %) 0 Basophils % (0.0 - 2.0 %) 0 Absolute Granulocytes (1.4 - 6.5 /CUMM) 24.5 H Segmented Neutrophils (42.2 - 75.2 %) 92 H Absolute Lymphocytes (1.2 - 3.4 /CUMM) 0.5 L Lymphocytes (20.5 - 51.1 %) 3 L Monocytes (1.7 - 9.3 %) 5 Absolute Monocytes (0.10 - 0.60 /CUMM) 1.4 H Absolute Eosinophils (0.0 - 0.7 /CUMM) 0 Absolute Basophils (0.0 - 0.2 /CUMM) 0 Platelet Estimate (ADEQUATE) INCREASED Polychromasia 1+ Hypochromic-Microcytic 1+ Poikilocytosis 1+ Ovalocytes 1+ Elliptocytes FEW Other Body Source Fld Total RBCs Counted (%) 100 05/07 0400 Chemistry Sodium (137 - 145 mmol/L) 133 L Potassium (3.5 - 5.1 mmol/L) 4.6 Chloride (98 - 107 mmol/L) 100 Carbon Dioxide (22 - 30 mmol/L) 28 Anion Gap (5 - 16) 5 BUN (9 - 20 mg/dL) 13 Creatinine (0.7 - 1.2 mg/dL) 0.8 Estimated GFR (>60 ml/min) > 60 BUN/Creatinine Ratio (7 - 25 %) 16.3 Hematology CBC w Diff MAN DIFF ORDERED WBC (4.8 - 10.8 /CUMM) 28.2 H RBC (4.70 - 6.10 /CUMM) 4.06 L Hgb (14.0 - 18.0 G/DL) 11.3 L Hct (42 - 52 %) 35.3 L MCV (80.0 - 94.0 FL) 87.0 MCH (27.0 - 31.0 PG) 27.8 MCHC (33.0 - 37.0 G/DL) 31.9 L RDW (11.5 - 14.5 %) 15.0 H Plt Count (130 - 400 /CUMM) 495 H MPV (7.4 - 10.4 FL) 6.6 L Gran % (42.2 - 75.2 %) 93.3 H Lymphocytes % (20.5 - 51.1 %) 2.5 L Monocytes % (1.7 - 9.3 %) 4.2 Eosinophils % (0 - 5 %) 0 Basophils % (0.0 - 2.0 %) 0 Absolute Granulocytes (1.4 - 6.5 /CUMM) 26.3 H Segmented Neutrophils (42.2 - 75.2 %) 83 H Band Neutrophils (0.0 - 5.0 %) 8 H Absolute Lymphocytes (1.2 - 3.4 /CUMM) 0.7 L Lymphocytes (20.5 - 51.1 %) 4 L Monocytes (1.7 - 9.3 %) 5 Absolute Monocytes (0.10 - 0.60 /CUMM) 1.2 H Absolute Eosinophils (0.0 - 0.7 /CUMM) 0 Absolute Basophils (0.0 - 0.2 /CUMM) 0 Platelet Estimate (ADEQUATE) ADEQUATE Polychromasia 1+ Hypochromic-Microcytic 2+ Basophilic Stippling RARE Anisocytosis 1+ Assessment/Plan Assessment/Plan Reexpansion of the lung with no evidence for continued air leak. Will place the catheter to waterseal today and observe him until tomorrow. A chest x-ray tomorrow will be done and if there is no evidence of pneumothorax and continued no air leak we will plan on removing the catheter.
[2017-10-01 16:00] VITALS: BP 132/74
[2017-10-02] VITALS: BP 128/62
[2017-10-02 05:23] LABS: ABSOLUTE BASOPHIL COUNT 0 /CUMM (0.0-0.2); ABSOLUTE EOSINOPHIL COUNT 0 /CUMM (0.0-0.7); ABSOLUTE GRANULOCYTE CT 15.8 /CUMM (1.4-6.5); ABSOLUTE LYMPH COUNT 0.8 /CUMM (1.2-3.4); BASOPHIL % 0.1 % (0.0-2.0); EOSINOPHIL % 0.2 % (0-5); GRANULOCYTE % 89.4 % (42.2-75.2); HEMATOCRIT 28.9 % (42-52); MEAN CORPUSCULAR HGB 27.5 PG (27.0-31.0); MEAN CORPUSCULAR HGB CONC 31.7 G/DL (33.0-37.0); MEAN CORPUSCULAR VOLUME 86.7 FL (80.0-94.0); MEAN PLATELET VOLUME 6.7 FL (7.4-10.4); PLATELET COUNT 445 /CUMM (130-400); RBC DISTRIBUTION WIDTH 15.8 % (11.5-14.5); RED BLOOD CELL CT 3.34 /CUMM (4.70-6.10); WHITE BLOOD CELL COUNT 17.7 /CUMM (4.8-10.8)
--- NOTE | 2017-10-02 05:49 | PN- General Surgery ---
See Addendum Subjective Subjective: PT IN BED WITH MINIMAL PAIN, COMPLAINS MOSTLY OF DRY MOUTH. DENIES CP/SOB WAS OOB TO CHAIR TWICE YESTERDAY. CANTU IN PLACE. NGT IN PLACE Objective Vital Signs and I&Os Vital Signs Date Time Temp Pulse Resp B/P B/P Pulse O2 O2 Flow FiO2 Mean Ox Delivery Rate 10/02 0000 98 Room Air 10/02 0000 98.3 106 18 128/62 98 Room Air 10/01 2108 100.3 10/02 1999 100 Nasal 2.0L Cannula 10/01 1600 100 Nasal 2.0L Cannula 10/01 1600 101.7 123 19 132/74 100 Nasal 2.0L Cannula 10/01 1200 97 Nasal 2.0L Cannula 10/02 799 99 Nasal 2.0L Cannula 10/02 799 97.8 109 20 120/78 99 Nasal 2.0L Cannula Intake & Output 10/02 0800 10/02 0000 / 1600 10/01 0800 / 0000 09/30 1600 Intake Total 1100 1024 1800 2119 756 Output Total 5528 188 8944 470 150 Balance -155 852 601 2459 606 Intake, IV 1100 1024 1800 709 756 Intake, Oral 0 0 1410 Output, Chest 50 70 120 Tube Drainage Output, 850 400 650 Gastric Drainage Output, Stool 350 100 350 240 Output, Urine 55 200 350 110 150 Patient 130 lb Weight Physical Exam: GEN- NAD RESP- anterior lungs with some course breath sounds, CT on right side with no air leak CARDIAC- TACHY ABD-ND, MIN BS, SOFT, TENDER ON RIGHT SIDE. ostomy pink and viable with dark fluid in bad EXT- 2+ PITTING EDEMA ON FEET. 2+ DP BILATERALLY Current Medications: Current Medications Sig/Sienna Start time Last Medication Dose Route Stop Time Status Admin Acetaminophen 1,000 MG Q8 10/01 0600 AC 10/01 IV 10/02 0601 2108 Ampicillin Sodium/ 1,500 MG Q6 09/30 1200 DC 10/01 Sulbactam Sodium IV 10/01 1159 0557 Sodium Chloride 100 ML Dextrose/Sodium 1,000 ML Q13H 09/30 1999 AC 10/01 Chloride IV 1407 Diphenhydramine HCl 50 MG Q6P PRN 09/27 1545 AC IV Heparin Sodium 5,000 UNIT Q8 09/28 0745 AC 05/08 (Porcine) SC 2108 Hydrocortisone 5 MG Q12 10/02 2099 AC Sodium Succinate IV 10/03 900 Hydrocortisone 10 MG Q12 10/01 2099 AC 10/01 Sodium Succinate IV 10/02 Hydrocortisone 20 MG Q12 09/30 2099 DC 10/01 Sodium Succinate IV 10/01 09 0810 Lorazepam 0.5 MG Q4P PRN 10/01 0015 AC 10/01 IV 0020 Magnesium Sulfate 1 GM ONCE ONE 10/02 799 DC 10/01 Dextrose/Water 100 ML IV 10/01 1159 0810 Meclizine HCl 12.5 MG TID PRN 09/27 1815 AC 09/27 PO 2013 Morphine Sulfate 2 MG Q2-3 HRS PRN 10/01 0015 AC 10/02 IV 0348 Morphine Sulfate 4 MG Q2-3 HRS NEEDED.. 09/29 08 AC 10/01 IV 1653 Ondansetron HCl 4 MG Q6P PRN 10/01 0015 AC 10/01 IV 0018 Pantoprazole Sodium 40 MG DAILY 09/27 1537 AC 10/01 IV 0810 Phenol 2 SPRAY Q2P PRN 10/01 0015 AC EXT Sodium Chloride 1,000 ML BOLUS ONE 10/02 0545 AC IV 10/02 0644 Sodium Chloride 1,000 ML BOLUS ONE 10/01 2245 DC 10/01 IV 10/01 2344 2322 Results Last 48 Hours of Labs: Laboratory Tests 10/02 10/01 0400 1732 Chemistry Sodium Pending Potassium Pending Chloride Pending Carbon Dioxide Pending Anion Gap Pending BUN Pending Creatinine Pending Glucose Pending Calcium Pending Phosphorus Pending Magnesium Pending Total Bilirubin Pending AST Pending ALT Pending Albumin Pending Hematology CBC w Diff MAN DIFF ORDERED WBC (4.8 - 10.8 /CUMM) 17.7 H RBC (4.70 - 6.10 /CUMM) 3.34 L Hgb (14.0 - 18.0 G/DL) 9.2 L Hct (42 - 52 %) 28.9 L MCV (80.0 - 94.0 FL) 86.7 MCH (27.0 - 31.0 PG) 27.5 MCHC (33.0 - 37.0 G/DL) 31.7 L RDW (11.5 - 14.5 %) 15.8 H Plt Count (130 - 400 /CUMM) 445 H MPV (7.4 - 10.4 FL) 6.7 L Gran % (42.2 - 75.2 %) 89.4 H Lymphocytes % (20.5 - 51.1 %) 4.5 L Monocytes % (1.7 - 9.3 %) 5.8 Eosinophils % (0 - 5 %) 0.2 Basophils % (0.0 - 2.0 %) 0.1 Absolute Granulocytes (1.4 - 6.5 /CUMM) 15.8 H Segmented Neutrophils (42.2 - 75.2 %) 88 H Absolute Lymphocytes (1.2 - 3.4 /CUMM) 0.8 L Lymphocytes (20.5 - 51.1 %) 4 L Monocytes (1.7 - 9.3 %) 7 Absolute Monocytes (0.10 - 0.60 /CUMM) 1.0 H Eosinophils (0 - 5.0 %) 1 Absolute Eosinophils (0.0 - 0.7 /CUMM) 0 Absolute Basophils (0.0 - 0.2 /CUMM) 0 Platelet Estimate (ADEQUATE) INCREASED Polychromasia 1+ Hypochromic-Microcytic 1+ Poikilocytosis 1+ Ovalocytes 1+ Other Body Source Fld Total RBCs Counted (%) 100 Urines Urinalysis MOD H Urine Color (YEL,AMB,STR) YEL Urine Clarity (CLEAR) HAZY H Urine pH (5.0 - 8.0) 6.0 Ur Specific [place] (1.001 - 1.035) >= 1.030 Urine Protein (NEG,<30 MG/DL) 30 H Urine Ketones (NEG) NEG Urine Nitrite (NEG) NEG Urine Bilirubin (NEG) NEG@ICTO Urine Urobilinogen (0.1 - 1.0 EU/dl) 0.2 Ur Leukocyte Esterase (NEG) NEG Ur Microscopic SEDIMENT EXAMINED Urine RBC (0 - 5 /HPF) 10-15 H Urine WBC (0 - 2 /HPF) 1-3 H Ur Epithelial Cells (NONE,FEW) MOD H Urine Bacteria (NEG/NONE) FEW H Hyaline Casts (0/LPF) 1-3 H Granular Casts (NONE /LPF) 1-3 H Urine Mucus (FEW,NONE) PACKD H Urine Hemoglobin (NEG) MOD H Urine Glucose (N MG/DL) NEG 10/01 09/30 0415 1020 Chemistry Sodium (137 - 145 mmol/L) 132 L Potassium (3.5 - 5.1 mmol/L) 4.2 Chloride (98 - 107 mmol/L) 101 Carbon Dioxide (22 - 30 mmol/L) 26 Anion Gap (5 - 16) 4 L BUN (9 - 20 mg/dL) 12 Creatinine (0.7 - 1.2 mg/dL) 0.7 Estimated GFR (>60 ml/min) > 60 BUN/Creatinine Ratio (7 - 25 %) 17.1 Phosphorus (2.5 - 4.5 mg/dL) 3.8 Magnesium (1.6 - 2.3 mg/dL) 1.9 Coagulation PT (9.4 - 12.5 SEC) 13.2 H INR (0.90 - 1.17) 1.21 H Hematology CBC w Diff MAN DIFF ORDERED WBC (4.8 - 10.8 /CUMM) 26.4 H RBC (4.70 - 6.10 /CUMM) 3.54 L Hgb (14.0 - 18.0 G/DL) 9.7 L Hct (42 - 52 %) 30.9 L MCV (80.0 - 94.0 FL) 87.2 MCH (27.0 - 31.0 PG) 27.4 MCHC (33.0 - 37.0 G/DL) 31.4 L RDW (11.5 - 14.5 %) 15.0 H Plt Count (130 - 400 /CUMM) 446 H MPV (7.4 - 10.4 FL) 6.4 L Gran % (42.2 - 75.2 %) 92.9 H Lymphocytes % (20.5 - 51.1 %) 1.9 L Monocytes % (1.7 - 9.3 %) 5.2 Eosinophils % (0 - 5 %) 0 Basophils % (0.0 - 2.0 %) 0 Absolute Granulocytes (1.4 - 6.5 /CUMM) 24.5 H Segmented Neutrophils (42.2 - 75.2 %) 92 H Absolute Lymphocytes (1.2 - 3.4 /CUMM) 0.5 L Lymphocytes (20.5 - 51.1 %) 3 L Monocytes (1.7 - 9.3 %) 5 Absolute Monocytes (0.10 - 0.60 /CUMM) 1.4 H Absolute Eosinophils (0.0 - 0.7 /CUMM) 0 Absolute Basophils (0.0 - 0.2 /CUMM) 0 Platelet Estimate (ADEQUATE) INCREASED Polychromasia 1+ Hypochromic-Microcytic 1+ Poikilocytosis 1+ Ovalocytes 1+ Elliptocytes FEW Other Body Source Fld Total RBCs Counted (%) 100 Assessment/Plan Assessment/Plan A- POD5 sp robo total proctocolectomy with DLI, POD2 sp IR guided R CT placement for PTX, with NGT in place, still tachycardic though PE ruled out. Still negative on fluids. Gave 1L bolus last night P- cont ngt, npo- few ice ok for oral comfort only, no to eat ivf- will give another 1L bolus this am CT to water seal- am CXR pending. My be able to pull tube if CXR looks ok this morning, will discuss with Dr Nava AM labs pending strict i&os prn painmeds cont cantu NEEDS OOB- ok to clamp ngt for ambulation will dw attending Core Measures Venous Thromboembolism VTE Risk Factors No risk factors No Mechanical VTE Prophylaxis d/t N/A MechProphylax Ordered No VTE Pharm Prophylaxis d/t NA PharmProphylax ordered
--- NOTE | 2017-10-02 07:20 | PN- Resident CRCU ---
See Addendum Subjective HPI/CRCU Issues: No acute events overnight. Feels thirsty. Still has discomfort from NGT. Has some pain with movement but states that is not excruciating. Received 1L NS bolus last night. Objective Vital Signs & I&O Last 8 Hrs of Vitals and I&O: Laboratory Tests 10/02 10/01 0400 1732 Chemistry Sodium (137 - 145 mmol/L) 139 Potassium (3.5 - 5.1 mmol/L) 3.8 Chloride (98 - 107 mmol/L) 105 Carbon Dioxide (22 - 30 mmol/L) 27 Anion Gap (5 - 16) 7 BUN (9 - 20 mg/dL) 12 Creatinine (0.7 - 1.2 mg/dL) 0.7 Estimated GFR (>60 ml/min) > 60 Glucose (65 - 99 mg/dL) 111 H Calcium (8.4 - 10.2 mg/dL) 7.4 L Phosphorus (2.5 - 4.5 mg/dL) 3.0 Magnesium (1.6 - 2.3 mg/dL) 1.9 Total Bilirubin (0.2 - 1.3 mg/dL) 0.1 L AST (17 - 59 U/L) 11 L ALT (21 - 72 U/L) 21 Albumin (3.5 - 5.0 g/dL) 1.6 L Hematology CBC w Diff MAN DIFF ORDERED WBC (4.8 - 10.8 /CUMM) 17.7 H RBC (4.70 - 6.10 /CUMM) 3.34 L Hgb (14.0 - 18.0 G/DL) 9.2 L Hct (42 - 52 %) 28.9 L MCV (80.0 - 94.0 FL) 86.7 MCH (27.0 - 31.0 PG) 27.5 MCHC (33.0 - 37.0 G/DL) 31.7 L RDW (11.5 - 14.5 %) 15.8 H Plt Count (130 - 400 /CUMM) 445 H MPV (7.4 - 10.4 FL) 6.7 L Gran % (42.2 - 75.2 %) 89.4 H Lymphocytes % (20.5 - 51.1 %) 4.5 L Monocytes % (1.7 - 9.3 %) 5.8 Eosinophils % (0 - 5 %) 0.2 Basophils % (0.0 - 2.0 %) 0.1 Absolute Granulocytes (1.4 - 6.5 /CUMM) 15.8 H Segmented Neutrophils (42.2 - 75.2 %) 88 H Absolute Lymphocytes (1.2 - 3.4 /CUMM) 0.8 L Lymphocytes (20.5 - 51.1 %) 4 L Monocytes (1.7 - 9.3 %) 7 Absolute Monocytes (0.10 - 0.60 /CUMM) 1.0 H Eosinophils (0 - 5.0 %) 1 Absolute Eosinophils (0.0 - 0.7 /CUMM) 0 Absolute Basophils (0.0 - 0.2 /CUMM) 0 Platelet Estimate (ADEQUATE) INCREASED Polychromasia 1+ Hypochromic-Microcytic 1+ Poikilocytosis 1+ Ovalocytes 1+ Other Body Source Fld Total RBCs Counted (%) 100 Urines Urinalysis MOD H Urine Color (YEL,AMB,STR) YEL Urine Clarity (CLEAR) HAZY H Urine pH (5.0 - 8.0) 6.0 Ur Specific [place] (1.001 - 1.035) >= 1.030 Urine Protein (NEG,<30 MG/DL) 30 H Urine Ketones (NEG) NEG Urine Nitrite (NEG) NEG Urine Bilirubin (NEG) NEG@ICTO Urine Urobilinogen (0.1 - 1.0 EU/dl) 0.2 Ur Leukocyte Esterase (NEG) NEG Ur Microscopic SEDIMENT EXAMINED Urine RBC (0 - 5 /HPF) 10-15 H Urine WBC (0 - 2 /HPF) 1-3 H Ur Epithelial Cells (NONE,FEW) MOD H Urine Bacteria (NEG/NONE) FEW H Hyaline Casts (0/LPF) 1-3 H Granular Casts (NONE /LPF) 1-3 H Urine Mucus (FEW,NONE) PACKD H Urine Hemoglobin (NEG) MOD H Urine Glucose (N MG/DL) NEG Vital Signs Date Time Temp Pulse Resp B/P B/P Pulse O2 O2 Flow FiO2 Mean Ox Delivery Rate 10/03 0726 98.0 10/02 0551 98.7 10/02 0400 100 Nasal 2.0L Cannula 10/02 0000 98 Room Air 10/02 0000 98.3 106 18 128/62 98 Room Air 10/01 2108 100.3 05/08 2000 100 Nasal 2.0L Cannula 10/01 1600 100 Nasal 2.0L Cannula 10/01 1600 101.7 123 19 132/74 100 Nasal 2.0L Cannula 10/01 1200 97 Nasal 2.0L Cannula Intake & Output 10/02 1600 10/02 0800 10/02 0000 Intake Total 1750 1100 Output Total 1180 1255 Balance 570 -155 Intake, IV 1750 1100 Output, 520 850 Gastric Drainage Output, Stool 475 350 Output, Urine 185 55 Exam General Appearance: no apparent distress, alert, awake Ears, Nose, Throat: NGT with green bilious drainage Respiratory: anterior lung sounds clear. R chest tube Cardiovascular: tachycardia Gastrointestinal: decreased BS. no tenderness to palpation. R ileostomy Extremities: 1+ LE edema. 3+ foot edema - patient and mom states only slightly larger than normal Current Medications: Current Medications Sig/Sienna Start time Last Medication Dose Route Stop Time Status Admin Acetaminophen 1,000 MG Q8 10/01 06 DC 10/02 IV 10/02 0601 0551 Dextrose/Sodium 1,000 ML Q13H 09/30 1999 10/01 Chloride IV 1407 Diphenhydramine HCl 50 MG Q6P PRN 09/27 1545 AC IV Heparin Sodium 5,000 UNIT Q8 09/28 0745 AC 10/02 (Porcine) SC 0558 Hydrocortisone 5 MG Q12 10/02 2100 AC Sodium Succinate IV 10/03 09 Hydrocortisone 10 MG Q12 10/01 2100 DC 10/02 Sodium Succinate IV 10/02 0901 0941 Lactated Ringer's 1,000 ML .Q4H 10/02 1015 AC 10/02 IV 10/02 1613 1104 Lorazepam 0.5 MG Q4P PRN 10/01 0015 AC 10/01 IV 0020 Magnesium Sulfate 1 GM ONCE ONE 10/02 1030 AC Dextrose/Water 100 ML IV 10/02 1429 Meclizine HCl 12.5 MG TID PRN 09/27 1815 AC 09/27 PO 2013 Morphine Sulfate 2 MG Q2-3 HRS PRN 10/01 0015 AC 10/02 IV 1043 Morphine Sulfate 4 MG Q2-3 HRS NEEDED.. 09/29 0800 AC 10/01 IV 1653 Ondansetron HCl 4 MG Q6P PRN 10/01 0015 AC 10/01 IV 0018 Pantoprazole Sodium 40 MG DAILY 09/27 1537 AC 10/02 IV 0940 Phenol 2 SPRAY Q2P PRN 10/01 0015 AC EXT Potassium Chloride 20 MEQ ONCE ONE 10/02 1045 CAN IV 10/02 1046 Potassium Chloride 10 MEQ Q1H 10/02 1045 DC 10/02 IV 10/02 1146 1226 Sodium Chloride 1,000 ML BOLUS ONE 10/02 0545 DC 10/02 IV 10/02 0644 0607 Sodium Chloride 1,000 ML BOLUS ONE 10/01 2245 DC 10/01 IV 10/01 2344 2322 Impression/Plan Impression/Problem List Impression: 32-year-old gentleman with past medical history significant for right lower extremity DVT and PE on Pradaxa(February 2017) and refractory ulcerative colitis who was admitted directly to surgical service for laparoscopic total proctocolectomy with formation of ileoanal J-pouch and diverticular loop ileostomy, postop day 4, was transferred to the ICU yesterday after on chest x- ray he was found to have a moderate right sided pneumothorax and extensive subcutaneous emphysema about the neck and chest. Problem List: #Respiratory #Post surgical complications of : Moderate right-sided pneumothorax, Bilateral pleural effusions, Pneumomediastinum, Subcutaneous emphysema, atelectasis Lungs reexpanded with chest tube. Subq emphysema decreasing. Repeat CXR revealed minute right apical pneumothorax, pneumomediastinum, pleural effusions. -per Pulm : if fever get diagnostic us tap of L pleueral effusion and specifiy amylase -dc chest tube per ct surgery if no more pneumothorax -cont incentive spirometry -cont surgery and CT surgery recs Infection Persistent leukocytosis Most likely due to stress/steroids. Pt received 4 doses of unasyn. WBC downtrending. -cont off abx Cardiac #Persistent tachycardia CTA negative for PE. Possibly due to pain -cont pain control -cont fluids @ 125/hr for borderline bp -start LR bolus @250ml/hr x 1 bag per surgery Hemeonc #History of RUE DVT and PE on Pradaxa -holding pradaxa. cont sc heparin Metabolic #dehydration and low UO Patient continues to have low UO despite fluids. -cont fluids (D5NS) @ 125 and increase as needed with discussion with surgery -Start LR per surgery -cont monitoring I/O #electrolytes -repleting electrolytes prn Alimentary #Hx of ulcerative colitis s/p laparoscopic total proctocolectomy with formation of ileoanal J-pouch and diverticular loop ileostomy, POD 4 -Ileus found on CT abdomen, continue NG tube and NPO -cont solucortef taper -cont zofran, protonix -consider nutrition consult for dietary changes as patients has an albumin of 1.6 and is vegeterian Neuro -No Issues Skin #LE edema Patijessy has had long standing pedal edema as he is a vegetarian and has low protein intake. -Pedal edema only slightly worse compared to baseline per patient and family -Continue to monitor for fluid overload as the patient is getting fluids -Holding off Lasix at this time due to low urine output. #Flushing - improved -possibly due to steroids. Cont to monitor for fevers #Subq emphysema -cont to monitor as stated above Housekeeping -NGT -R ileostomy -R chest tube -cont CORRALES -NPO -FULL CODE -DVT PPX: heparin subq Problem List: 1. Pneumomediastinum 2. Pleural effusion 3. Leukocytosis 4. Pneumothorax 5. Ulcerative colitis 6. S/P total colectomy Pain Ratin Tomorrow's Labs & Rationales: icu bundle cbc Plan DVT/Prophylaxis: heparin subq
[2017-10-02 08:00] VITALS: BP 120/60
--- NOTE | 2017-10-02 09:57 | PN- Thoracic Surgery ---
Subjective Subjective: No respiratory issues. Breathing well pleuritic pain is resolved Objective Vital Signs and I&Os Vital Signs Date Time Temp Pulse Resp B/P B/P Pulse O2 O2 Flow FiO2 Mean Ox Delivery Rate 10/02 825 98.0 10/02 550 98.7 10/02 040 100 Nasal 2.0L Cannula 10/02 0000 98 Room Air 10/02 0000 98.3 106 18 128/62 98 Room Air 10/01 2108 100.3 10/01 2000 100 Nasal 2.0L Cannula 10/02 1599 100 Nasal 2.0L Cannula 10/01 1600 101.7 123 19 132/74 100 Nasal 2.0L Cannula 10/01 1200 97 Nasal 2.0L Cannula Intake & Output 10/02 0000 10/01 0000 Intake Total 1750 1100 1024 1800 2119 Output Total 1180 1075 254 8287 470 Balance 570 -155 548 559 8642 Intake, IV 1750 1100 1024 1800 709 Intake, Oral 0 0 1410 Output, Chest 50 70 120 Tube Drainage Output, 520 850 400 650 Gastric Drainage Output, Stool 475 350 100 350 240 Output, Urine 185 55 200 350 110 Physical Exam: Breath sounds clear. Pleur-evac is off suction and there is no apparent air leak. There is good titling with respiration and with cough. Results Last 48 Hours of Labs: Laboratory Tests 10/02 1732 Chemistry Sodium (137 - 145 mmol/L) 139 Potassium (3.5 - 5.1 mmol/L) 3.8 Chloride (98 - 107 mmol/L) 105 Carbon Dioxide (22 - 30 mmol/L) 27 Anion Gap (5 - 16) 7 BUN (9 - 20 mg/dL) 12 Creatinine (0.7 - 1.2 mg/dL) 0.7 Estimated GFR (>60 ml/min) > 60 Glucose (65 - 99 mg/dL) 111 H Calcium (8.4 - 10.2 mg/dL) 7.4 L Phosphorus (2.5 - 4.5 mg/dL) 3.0 Magnesium (1.6 - 2.3 mg/dL) 1.9 Total Bilirubin (0.2 - 1.3 mg/dL) 0.1 L AST (17 - 59 U/L) 11 L ALT (21 - 72 U/L) 21 Albumin (3.5 - 5.0 g/dL) 1.6 L Hematology CBC w Diff MAN DIFF ORDERED WBC (4.8 - 10.8 /CUMM) 17.7 H RBC (4.70 - 6.10 /CUMM) 3.34 L Hgb (14.0 - 18.0 G/DL) 9.2 L Hct (42 - 52 %) 28.9 L MCV (80.0 - 94.0 FL) 86.7 MCH (27.0 - 31.0 PG) 27.5 MCHC (33.0 - 37.0 G/DL) 31.7 L RDW (11.5 - 14.5 %) 15.8 H Plt Count (130 - 400 /CUMM) 445 H MPV (7.4 - 10.4 FL) 6.7 L Gran % (42.2 - 75.2 %) 89.4 H Lymphocytes % (20.5 - 51.1 %) 4.5 L Monocytes % (1.7 - 9.3 %) 5.8 Eosinophils % (0 - 5 %) 0.2 Basophils % (0.0 - 2.0 %) 0.1 Absolute Granulocytes (1.4 - 6.5 /CUMM) 15.8 H Segmented Neutrophils (42.2 - 75.2 %) 88 H Absolute Lymphocytes (1.2 - 3.4 /CUMM) 0.8 L Lymphocytes (20.5 - 51.1 %) 4 L Monocytes (1.7 - 9.3 %) 7 Absolute Monocytes (0.10 - 0.60 /CUMM) 1.0 H Eosinophils (0 - 5.0 %) 1 Absolute Eosinophils (0.0 - 0.7 /CUMM) 0 Absolute Basophils (0.0 - 0.2 /CUMM) 0 Platelet Estimate (ADEQUATE) INCREASED Polychromasia 1+ Hypochromic-Microcytic 1+ Poikilocytosis 1+ Ovalocytes 1+ Other Body Source Fld Total RBCs Counted (%) 100 Urines Urinalysis MOD H Urine Color (YEL,AMB,STR) YEL Urine Clarity (CLEAR) HAZY H Urine pH (5.0 - 8.0) 6.0 Ur Specific [place] (1.001 - 1.035) >= 1.030 Urine Protein (NEG,<30 MG/DL) 30 H Urine Ketones (NEG) NEG Urine Nitrite (NEG) NEG Urine Bilirubin (NEG) NEG@ICTO Urine Urobilinogen (0.1 - 1.0 EU/dl) 0.2 Ur Leukocyte Esterase (NEG) NEG Ur Microscopic SEDIMENT EXAMINED Urine RBC (0 - 5 /HPF) 10-15 H Urine WBC (0 - 2 /HPF) 1-3 H Ur Epithelial Cells (NONE,FEW) MOD H Urine Bacteria (NEG/NONE) FEW H Hyaline Casts (0/LPF) 1-3 H Granular Casts (NONE /LPF) 1-3 H Urine Mucus (FEW,NONE) PACKD H Urine Hemoglobin (NEG) MOD H Urine Glucose (N MG/DL) NEG 10/01 09/30 0415 1020 Chemistry Sodium (137 - 145 mmol/L) 132 L Potassium (3.5 - 5.1 mmol/L) 4.2 Chloride (98 - 107 mmol/L) 101 Carbon Dioxide (22 - 30 mmol/L) 26 Anion Gap (5 - 16) 4 L BUN (9 - 20 mg/dL) 12 Creatinine (0.7 - 1.2 mg/dL) 0.7 Estimated GFR (>60 ml/min) > 60 BUN/Creatinine Ratio (7 - 25 %) 17.1 Phosphorus (2.5 - 4.5 mg/dL) 3.8 Magnesium (1.6 - 2.3 mg/dL) 1.9 Coagulation PT (9.4 - 12.5 SEC) 13.2 H INR (0.90 - 1.17) 1.21 H Hematology CBC w Diff MAN DIFF ORDERED WBC (4.8 - 10.8 /CUMM) 26.4 H RBC (4.70 - 6.10 /CUMM) 3.54 L Hgb (14.0 - 18.0 G/DL) 9.7 L Hct (42 - 52 %) 30.9 L MCV (80.0 - 94.0 FL) 87.2 MCH (27.0 - 31.0 PG) 27.4 MCHC (33.0 - 37.0 G/DL) 31.4 L RDW (11.5 - 14.5 %) 15.0 H Plt Count (130 - 400 /CUMM) 446 H MPV (7.4 - 10.4 FL) 6.4 L Gran % (42.2 - 75.2 %) 92.9 H Lymphocytes % (20.5 - 51.1 %) 1.9 L Monocytes % (1.7 - 9.3 %) 5.2 Eosinophils % (0 - 5 %) 0 Basophils % (0.0 - 2.0 %) 0 Absolute Granulocytes (1.4 - 6.5 /CUMM) 24.5 H Segmented Neutrophils (42.2 - 75.2 %) 92 H Absolute Lymphocytes (1.2 - 3.4 /CUMM) 0.5 L Lymphocytes (20.5 - 51.1 %) 3 L Monocytes (1.7 - 9.3 %) 5 Absolute Monocytes (0.10 - 0.60 /CUMM) 1.4 H Absolute Eosinophils (0.0 - 0.7 /CUMM) 0 Absolute Basophils (0.0 - 0.2 /CUMM) 0 Platelet Estimate (ADEQUATE) INCREASED Polychromasia 1+ Hypochromic-Microcytic 1+ Poikilocytosis 1+ Ovalocytes 1+ Elliptocytes FEW Other Body Source Fld Total RBCs Counted (%) 100 Recent Imaging Studies: Chest x-ray shows no pneumothorax. Assessment/Plan Assessment/Plan No apparent air leak since the catheter was originally placed. On waterseal lung remains inflated and I see no air leak. We will clamp the catheter for 1 hour and recheck an x-ray. If there is no pneumothorax and the catheter can be removed. During the course of my interaction with the patient he was using very foul language and I have asked him very politely to not use that type of language in my presence. He attributed it to us "being different kinds of people"
--- NOTE | 2017-10-02 10:49 | RADIOLOGY REPORT ---
EXAMINATION: XR PORTABLE CHEST CLINICAL INFORMATION: Chest tube placement. Comparison. Follow-up of right-sided pneumothorax. COMPARISON: Multiple prior chest x-rays, most recent of which is dated 10/01/2017. TECHNIQUE: Portable AP semierect view of the chest was obtained. FINDINGS: Enteric tube extends into the left upper quadrant in region of the gastric fundus. A right-sided pleural catheter remains unchanged in the mid to upper chest. There is a trace pneumothorax in the right lung apex. Persistent linear opacities in the right mid and lower lung are seen consistent with atelectasis. No change in the left basilar opacities are seen, consistent with small effusion and associated atelectasis or pneumonia. Mild central vascular congestion is seen. Gaseous distention of bowel loops in the upper abdomen is seen. Bony structures are unremarkable. IMPRESSION: 1. Trace right apical pneumothorax is seen. No change in positioning of right-sided pleural catheter. 2. Enteric tube tip in region of the gastric fundus. 3. No change in atelectatic changes in the right mid and lower lung and denser atelectasis or consolidation in the left lower lobe with associated small effusion.
[2017-10-02 12:00] VITALS: BP 124/70
--- NOTE | 2017-10-02 12:38 | RADIOLOGY REPORT ---
EXAMINATION: XR PORTABLE CHEST CLINICAL INFORMATION: History of pneumothorax in a 32-year-old male status post chest tube placement. COMPARISON: Initial chest x-ray done 09/29/2017. Follow-up x-rays, the most recent obtained at 7:00 AM today. TECHNIQUE: Portable AP semierect view of the chest was obtained. FINDINGS: The enteric tube is directed into the stomach. The right-sided pigtail chest tube is unchanged in position. A minute right apical pneumothorax persists. Pneumomediastinum is the same. There are bilateral pleural effusions with the effusion on the right being subpulmonic. Subcutaneous emphysema persists in the neck. IMPRESSION: Chest tube in place. A minute right apical pneumothorax persists. Pneumomediastinum. Pleural effusions.
--- NOTE | 2017-10-02 14:17 | Event Note ---
Event Note Event Note: chest tube removed without event or difficulty d/w f/u cxr in am
[2017-10-02 16:00] VITALS: BP 120/70
--- NOTE | 2017-10-02 16:11 | RADIOLOGY REPORT ---
EXAMINATION: XR PORTABLE ABDOMEN CLINICAL INFORMATION: Improving ileus. Compared to previous film. Postop ileus. COMPARISON: CT scan of the abdomen and pelvis dated 09/30/2017. TECHNIQUE: AP view of the abdomen. FINDINGS: An enteric tube is seen in the left upper quadrant in region of the gastric fundus with decompression of the previously seen gas distended stomach. There is persistent gaseous distention of small bowel loops in the midabdomen, measuring up to 5.9 cm in diameter, similar to the previous exam. A right lower quadrant ostomy is seen in place. Midline pelvic katy and sutures are also noted. Bony structures are unremarkable. IMPRESSION: Persistent abnormal gaseous distention of small bowel loops in the abdomen, similar to previous CT scan from 09/30/2017, consistent with a postoperative ileus. Continued follow-up is recommended.
[2017-10-02 23:00] VITALS: BP 133/74
[2017-10-03 03:47] LABS: ABSOLUTE BASOPHIL COUNT 0 /CUMM (0.0-0.2); ABSOLUTE EOSINOPHIL COUNT 0 /CUMM (0.0-0.7); ABSOLUTE LYMPH COUNT 0.5 /CUMM (1.2-3.4); ABSOLUTE MONOCYTE COUNT 0.8 /CUMM (0.10-0.60); BASOPHIL % 0.1 % (0.0-2.0); EOSINOPHIL % 0 % (0-5); GRANULOCYTE % 90.7 % (42.2-75.2); MEAN CORPUSCULAR HGB 27.4 PG (27.0-31.0); MEAN CORPUSCULAR HGB CONC 31.7 G/DL (33.0-37.0); MEAN CORPUSCULAR VOLUME 86.6 FL (80.0-94.0); MEAN PLATELET VOLUME 6.5 FL (7.4-10.4); PLATELET COUNT 447 /CUMM (130-400); RBC DISTRIBUTION WIDTH 15.2 % (11.5-14.5); RED BLOOD CELL CT 2.69 /CUMM (4.70-6.10); WHITE BLOOD CELL COUNT 14.3 /CUMM (4.8-10.8)
[2017-10-03 03:57] LABS: HEMATOCRIT 23.2 % (42-52)
[2017-10-03 05:45] LABS: ABSOLUTE BASOPHIL COUNT 0 /CUMM (0.0-0.2); ABSOLUTE EOSINOPHIL COUNT 0 /CUMM (0.0-0.7); ABSOLUTE GRANULOCYTE CT 11.2 /CUMM (1.4-6.5); ABSOLUTE LYMPH COUNT 0.7 /CUMM (1.2-3.4); ABSOLUTE MONOCYTE COUNT 0.8 /CUMM (0.10-0.60); BASOPHIL % 0.1 % (0.0-2.0); EOSINOPHIL % 0.1 % (0-5); MEAN CORPUSCULAR HGB 27.5 PG (27.0-31.0); MEAN CORPUSCULAR HGB CONC 31.7 G/DL (33.0-37.0); MEAN CORPUSCULAR VOLUME 86.6 FL (80.0-94.0); MEAN PLATELET VOLUME 6.3 FL (7.4-10.4); PLATELET COUNT 430 /CUMM (130-400); RBC DISTRIBUTION WIDTH 14.5 % (11.5-14.5); RED BLOOD CELL CT 2.66 /CUMM (4.70-6.10); WHITE BLOOD CELL COUNT 12.8 /CUMM (4.8-10.8)
--- NOTE | 2017-10-03 05:45 | PN- General Surgery ---
See Addendum Subjective Subjective: feeling ok, wants ngt out. happy ct is out. no sob at rest, but +sob on exertion/standing up. no n/v. no cp. remains tachy in low 100s all night, denies pain. Objective Vital Signs and I&Os Vital Signs Date Time Temp Pulse Resp B/P B/P Pulse O2 O2 Flow FiO2 Mean Ox Delivery Rate 10/03 0400 98 Nasal 2.0L Cannula 10/03 0000 98 Nasal 2.0L Cannula 10/02 2300 99.3 108 12 133/74 98 Nasal 2.0L Cannula 10/02 2000 97 Nasal 2.0L Cannula 10/02 1600 98.4 102 19 120/70 100 Nasal 2.0L Cannula 10/02 1600 100 Nasal 2.0L Cannula 10/02 1200 100 Nasal 2.0L Cannula 10/02 1200 99.0 102 19 124/70 100 Nasal 2.0L Cannula 10/02 0826 98.0 10/02 0800 98.0 108 22 120/60 100 Nasal 2.0L Cannula 10/02 0800 100 Nasal 2.0L Cannula 10/02 0551 98.7 Physical Exam: gen-nad. ngt in place card- s1s2 tachy regular pulm- course bs throughout, poor inspiratort effort abd- mild ttp, softly distended, incision w katy- cdi without erythema,stoma pink, ilda in place, brown watery stool in bag with some thicker stool at stoma ext- alps on bl, calves soft nt, +edema bl le Overnight I&Os not totaled yet OSTOMY: NR/300/750 dark brown watery CANTU: 30-40cc per hr/940/210, clear yellow NGT: NR/190/350 , dark bilious TOTAL IN: NR/1050/2505 TOTAL OUT: NR/930/1310 Current Medications: Current Medications Sig/[place] Start time Last Medication Dose Route Stop Time Status Admin Acetaminophen 1,000 MG Q8 10/01 0600 DC 10/02 IV 10/02 0601 0551 Dextrose/Sodium 1,000 ML Q13H 09/30 1999 AC 10/02 Chloride IV 225 Diphenhydramine HCl 50 MG Q6P PRN 09/27 1545 AC IV Heparin Sodium 5,000 UNIT Q8 09/28 0745 AC 10/02 (Porcine) SC 2117 Hydrocortisone 5 MG Q12 10/02 2100 AC 10/02 Sodium Succinate IV 10/03 900 2044 Hydrocortisone 10 MG Q12 10/01 2100 DC 10/02 Sodium Succinate IV 10/02 900 0941 Lactated Ringer's 1,000 ML .Q4H 10/02 1015 DC 10/02 IV 10/02 1613 1104 Lorazepam 0.5 MG Q4P PRN 10/01 0015 AC 10/02 IV 2304 Magnesium Sulfate 1 GM ONCE ONE 10/02 1030 DC 10/02 Dextrose/Water 100 ML IV 10/02 1429 1354 Meclizine HCl 12.5 MG TID PRN 09/27 1815 AC 09/27 PO 2013 Morphine Sulfate 2 MG Q2-3 HRS PRN 10/01 0015 AC 10/02 IV 1836 Morphine Sulfate 4 MG Q2-3 HRS NEEDED.. 09/29 0800 AC 10/02 IV 1404 Ondansetron HCl 4 MG Q6P PRN 10/01 0015 AC 10/01 IV 0018 Pantoprazole Sodium 40 MG DAILY 09/27 1537 AC 10/02 IV 0940 Phenol 2 SPRAY Q2P PRN 10/01 0015 AC EXT Potassium Chloride 20 MEQ ONCE ONE 10/02 1045 CAN IV 10/02 1046 Potassium Chloride 10 MEQ Q1H 10/02 1045 DC 10/02 IV 10/02 1146 1226 Sodium Chloride 1,000 ML BOLUS ONE 10/02 0545 DC 10/02 IV 10/02 0644 0607 Results Last 48 Hours of Labs: Laboratory Tests 10/03 10/03 0430 0300 Chemistry Sodium (137 - 145 mmol/L) 138 Potassium (3.5 - 5.1 mmol/L) 3.6 Chloride (98 - 107 mmol/L) 106 Carbon Dioxide (22 - 30 mmol/L) 26 Anion Gap (5 - 16) 6 BUN (9 - 20 mg/dL) 7 L Creatinine (0.7 - 1.2 mg/dL) 0.5 L Estimated GFR (>60 ml/min) > 60 Glucose (65 - 99 mg/dL) 109 H Calcium (8.4 - 10.2 mg/dL) 7.1 L Phosphorus (2.5 - 4.5 mg/dL) 3.3 Magnesium (1.6 - 2.3 mg/dL) 1.8 Total Bilirubin (0.2 - 1.3 mg/dL) < 0.1 L AST (17 - 59 U/L) 13 L ALT (21 - 72 U/L) 23 Albumin (3.5 - 5.0 g/dL) 1.5 L Hematology CBC w Diff Pending MAN DIFF ORDERED WBC (4.8 - 10.8 /CUMM) Pending 14.3 H RBC (4.70 - 6.10 /CUMM) Pending 2.69 L Hgb (14.0 - 18.0 G/DL) Pending 7.4 *L Hct (42 - 52 %) Pending 23.2 L MCV (80.0 - 94.0 FL) Pending 86.6 MCH (27.0 - 31.0 PG) Pending 27.4 MCHC (33.0 - 37.0 G/DL) Pending 31.7 L RDW (11.5 - 14.5 %) Pending 15.2 H Plt Count (130 - 400 /CUMM) Pending 447 H MPV (7.4 - 10.4 FL) Pending 6.5 L Gran % (42.2 - 75.2 %) 90.7 H Lymphocytes % (20.5 - 51.1 %) 3.4 L Monocytes % (1.7 - 9.3 %) 5.8 Eosinophils % (0 - 5 %) 0 Basophils % (0.0 - 2.0 %) 0.1 Absolute Granulocytes (1.4 - 6.5 /CUMM) 13.0 H Segmented Neutrophils (42.2 - 75.2 %) 92 H Absolute Lymphocytes (1.2 - 3.4 /CUMM) 0.5 L Lymphocytes (20.5 - 51.1 %) 3 L Monocytes (1.7 - 9.3 %) 5 Absolute Monocytes (0.10 - 0.60 /CUMM) 0.8 H Absolute Eosinophils (0.0 - 0.7 /CUMM) 0 Absolute Basophils (0.0 - 0.2 /CUMM) 0 Platelet Estimate (ADEQUATE) INCREASED Polychromasia 1+ Hypochromic-Microcytic 2+ Poikilocytosis 1+ Ovalocytes 1+ Other Body Source Fld Total RBCs Counted (%) 100 05/09 05/08 0400 1732 Chemistry Sodium (137 - 145 mmol/L) 139 Potassium (3.5 - 5.1 mmol/L) 3.8 Chloride (98 - 107 mmol/L) 105 Carbon Dioxide (22 - 30 mmol/L) 27 Anion Gap (5 - 16) 7 BUN (9 - 20 mg/dL) 12 Creatinine (0.7 - 1.2 mg/dL) 0.7 Estimated GFR (>60 ml/min) > 60 Glucose (65 - 99 mg/dL) 111 H Calcium (8.4 - 10.2 mg/dL) 7.4 L Phosphorus (2.5 - 4.5 mg/dL) 3.0 Magnesium (1.6 - 2.3 mg/dL) 1.9 Total Bilirubin (0.2 - 1.3 mg/dL) 0.1 L AST (17 - 59 U/L) 11 L ALT (21 - 72 U/L) 21 Albumin (3.5 - 5.0 g/dL) 1.6 L Hematology CBC w Diff MAN DIFF ORDERED WBC (4.8 - 10.8 /CUMM) 17.7 H RBC (4.70 - 6.10 /CUMM) 3.34 L Hgb (14.0 - 18.0 G/DL) 9.2 L Hct (42 - 52 %) 28.9 L MCV (80.0 - 94.0 FL) 86.7 MCH (27.0 - 31.0 PG) 27.5 MCHC (33.0 - 37.0 G/DL) 31.7 L RDW (11.5 - 14.5 %) 15.8 H Plt Count (130 - 400 /CUMM) 445 H MPV (7.4 - 10.4 FL) 6.7 L Gran % (42.2 - 75.2 %) 89.4 H Lymphocytes % (20.5 - 51.1 %) 4.5 L Monocytes % (1.7 - 9.3 %) 5.8 Eosinophils % (0 - 5 %) 0.2 Basophils % (0.0 - 2.0 %) 0.1 Absolute Granulocytes (1.4 - 6.5 /CUMM) 15.8 H Segmented Neutrophils (42.2 - 75.2 %) 88 H Absolute Lymphocytes (1.2 - 3.4 /CUMM) 0.8 L Lymphocytes (20.5 - 51.1 %) 4 L Monocytes (1.7 - 9.3 %) 7 Absolute Monocytes (0.10 - 0.60 /CUMM) 1.0 H Eosinophils (0 - 5.0 %) 1 Absolute Eosinophils (0.0 - 0.7 /CUMM) 0 Absolute Basophils (0.0 - 0.2 /CUMM) 0 Platelet Estimate (ADEQUATE) INCREASED Polychromasia 1+ Hypochromic-Microcytic 1+ Poikilocytosis 1+ Ovalocytes 1+ Other Body Source Fld Total RBCs Counted (%) 100 Urines Urinalysis MOD H Urine Color (YEL,AMB,STR) YEL Urine Clarity (CLEAR) HAZY H Urine pH (5.0 - 8.0) 6.0 Ur Specific [place] (1.001 - 1.035) >= 1.030 Urine Protein (NEG,<30 MG/DL) 30 H Urine Ketones (NEG) NEG Urine Nitrite (NEG) NEG Urine Bilirubin (NEG) NEG@ICTO Urine Urobilinogen (0.1 - 1.0 EU/dl) 0.2 Ur Leukocyte Esterase (NEG) NEG Ur Microscopic SEDIMENT EXAMINED Urine RBC (0 - 5 /HPF) 10-15 H Urine WBC (0 - 2 /HPF) 1-3 H Ur Epithelial Cells (NONE,FEW) MOD H Urine Bacteria (NEG/NONE) FEW H Hyaline Casts (0/LPF) 1-3 H Granular Casts (NONE /LPF) 1-3 H Urine Mucus (FEW,NONE) PACKD H Urine Hemoglobin (NEG) MOD H Urine Glucose (N MG/DL) NEG Assessment/Plan Assessment/Plan A- POD6 sp robo total proctocolectomy with j-pouch creation and DLI, with NGT in place, still tachycardic in low 100s, awaiting last shift I&Os, with worsening anemia- await am cbc and am cxr- tachy from hypovolemia vs plerual effusions vs other. CT removed yesterday without difficulty. P- cont ngt, npo ivf strict i&os prn painmeds cont cantu-?when to dc needs oob. fu cxr if febrile, ?thoracentesis alps, hep sq will dw attending Core Measures Venous Thromboembolism VTE Risk Factors No risk factors No Mechanical VTE Prophylaxis d/t N/A MechProphylax Ordered No VTE Pharm Prophylaxis d/t NA PharmProphylax ordered Urine Glucose (N MG/DL) NEG Assessment/Plan Assessment/Plan A- POD6 sp robo total proctocolectomy with j-pouch creation and DLI, with NGT in place, still tachycardic P- cont ngt, npo ivf strict i&os prn painmeds cont cantu-?when to dc needs oob. fu cxr if febrile, ?thoracentesis alps, hep sq will dw attending Core Measures Venous Thromboembolism VTE Risk Factors No risk factors No Mechanical VTE Prophylaxis d/t N/A MechProphylax Ordered No VTE Pharm Prophylaxis d/t NA PharmProphylax ordered
--- NOTE | 2017-10-03 06:52 | RADIOLOGY REPORT ---
EXAMINATION: XR PORTABLE CHEST CLINICAL INFORMATION: History of ulcerative colitis. Pneumothorax. Tube removed yesterday. COMPARISON: 10/02/2017 TECHNIQUE: Portable frontal view of the chest was obtained. FINDINGS: Enteric tube remains in place. The right-sided pigtail catheter has been removed. Lung volumes are low. There are small bilateral pleural effusions with hazy basilar opacities. No pneumothorax seen. The cardiomediastinal silhouette is within normal limits. IMPRESSION: Small bilateral pleural effusions with associated airspace opacity. These are slightly increased from prior. Removal of the right-sided chest tube with no pneumothorax seen.
[2017-10-03 07:00] VITALS: BP 116/76
--- NOTE | 2017-10-03 07:46 | PN- Resident CRCU ---
Irving FRAUSTO,[facility] 10/03/17 0746: Subjective HPI/CRCU Issues: Patient had chest tube removed last night. Was also found to have a drop in his hemoglobin after chest tube removal. No signs of bleeding on chest x-ray. Repeat chest x-ray this morning revealed continued bilateral pleural effusions and no pneumothorax. Patient had PICC line placement for TPN nutrition. NGT removed. The patient continues to have nasogastric discomfort from the NG tube despite Chloraseptic [place]. Foot edema worse than yesterday Objective Vital Signs & I&O Last 8 Hrs of Vitals and I&O: Laboratory Tests 10/03 10/03 0430 0300 Chemistry Sodium (137 - 145 mmol/L) 138 Potassium (3.5 - 5.1 mmol/L) 3.6 Chloride (98 - 107 mmol/L) 106 Carbon Dioxide (22 - 30 mmol/L) 26 Anion Gap (5 - 16) 6 BUN (9 - 20 mg/dL) 7 L Creatinine (0.7 - 1.2 mg/dL) 0.5 L Estimated GFR (>60 ml/min) > 60 Glucose (65 - 99 mg/dL) 109 H Calcium (8.4 - 10.2 mg/dL) 7.1 L Phosphorus (2.5 - 4.5 mg/dL) 3.3 Magnesium (1.6 - 2.3 mg/dL) 1.8 Total Bilirubin (0.2 - 1.3 mg/dL) < 0.1 L AST (17 - 59 U/L) 13 L ALT (21 - 72 U/L) 23 Albumin (3.5 - 5.0 g/dL) 1.5 L Prealbumin (17.6 - 36.0 mg/dL) 5.9 L Hematology CBC w Diff NO MAN DIFF REQ MAN DIFF ORDERED WBC (4.8 - 10.8 /CUMM) 12.8 H 14.3 H RBC (4.70 - 6.10 /CUMM) 2.66 L 2.69 L Hgb (14.0 - 18.0 G/DL) 7.3 *L 7.4 *L Hct (42 - 52 %) 23.0 L 23.2 L MCV (80.0 - 94.0 FL) 86.6 86.6 MCH (27.0 - 31.0 PG) 27.5 27.4 MCHC (33.0 - 37.0 G/DL) 31.7 L 31.7 L RDW (11.5 - 14.5 %) 14.5 15.2 H Plt Count (130 - 400 /CUMM) 430 H 447 H MPV (7.4 - 10.4 FL) 6.3 L 6.5 L Gran % (42.2 - 75.2 %) 88.0 H 90.7 H Lymphocytes % (20.5 - 51.1 %) 5.5 L 3.4 L Monocytes % (1.7 - 9.3 %) 6.3 5.8 Eosinophils % (0 - 5 %) 0.1 0 Basophils % (0.0 - 2.0 %) 0.1 0.1 Absolute Granulocytes (1.4 - 6.5 /CUMM) 11.2 H 13.0 H Segmented Neutrophils (42.2 - 75.2 %) 92 H Absolute Lymphocytes (1.2 - 3.4 /CUMM) 0.7 L 0.5 L Lymphocytes (20.5 - 51.1 %) 3 L Monocytes (1.7 - 9.3 %) 5 Absolute Monocytes (0.10 - 0.60 /CUMM) 0.8 H 0.8 H Absolute Eosinophils (0.0 - 0.7 /CUMM) 0 0 Absolute Basophils (0.0 - 0.2 /CUMM) 0 0 Platelet Estimate (ADEQUATE) INCREASED Polychromasia 1+ Hypochromic-Microcytic 2+ Poikilocytosis 1+ Ovalocytes 1+ Other Body Source Fld Total RBCs Counted (%) 100 Vital Signs Date Time Temp Pulse Resp B/P B/P Pulse O2 O2 Flow FiO2 Mean Ox Delivery Rate 10/03 08 98.5 98 18 120/70 99 Nasal 2.0L Cannula 10/03 0700 98.5 94 19 116/76 99 Nasal 2.0L Cannula 10/03 0400 98 Nasal 2.0L Cannula 10/03 0000 98 Nasal 2.0L Cannula 10/02 2300 99.3 108 12 133/74 98 Nasal 2.0L Cannula 10/02 2000 97 Nasal 2.0L Cannula 10/02 1600 98.4 102 19 120/70 100 Nasal 2.0L Cannula 10/02 1600 100 Nasal 2.0L Cannula Intake & Output 10/03 1600 10/03 0800 10/03 0000 Intake Total 1000 1050 Output Total 695 930 Balance 305 120 Intake, IV 1000 1050 Intake, Oral 0 Intake, Tube 0 Feeding Intake, Tube 0 Irrigant Output, 260 190 Gastric Drainage Output, Stool 250 300 Output, Urine 185 440 Patient 130 lb Weight Intake & Output 10/03 1600 Intake Total Output Total Balance Patient 130 lb Weight Exam General Appearance: no apparent distress, alert, awake Ears, Nose, Throat: NGT with green bilious fluid Respiratory: lung sounds clear anteriorly Cardiovascular: tachycarida Gastrointestinal: decreased bowel sounds with diffuse abdominal tenderness Extremities: 2+ radial pulses, 3/4+ foot edema, R chest tube removed. no signs of bleed from removal site. Current Medications: Current Medications Sig/[place] Start time Last Medication Dose Route Stop Time Status Admin Calcium Gluconate 1 GM ONCE ONE 10/03 1315 UNVr Sodium Chloride 100 ML IV 10/03 1414 Dextrose/Sodium 1,000 ML Q13H 09/29 2000 AC 10/02 Chloride IV 2259 Diphenhydramine HCl 50 MG Q6P PRN 09/27 1545 AC IV Fat Emulsion 100 ML Q24H 10/03 1900 AC Intravenous IV 10/04 1858 Heparin Sodium 5,000 UNIT Q8 09/28 0745 AC 10/03 (Porcine) SC 0602 Hydrocortisone 5 MG Q12 10/02 2100 DC 10/03 Sodium Succinate IV 10/03 0901 0935 Lactated Ringer's 1,000 ML .Q4H 10/02 1015 DC 10/02 IV 10/02 1613 1104 Lorazepam 0.5 MG Q4P PRN 10/01 0015 AC 10/02 IV 2304 Magnesium Sulfate 1 GM Q2H 10/03 0815 DC 10/03 Dextrose/Water 100 ML IV 10/03 1214 1233 Magnesium Sulfate 1 GM ONCE ONE 10/02 1030 DC 10/02 Dextrose/Water 100 ML IV 10/02 1429 1354 Meclizine HCl 12.5 MG TID PRN 09/27 1815 AC 09/27 PO 2013 Morphine Sulfate 2 MG Q2-3 HRS PRN 10/01 0015 AC 10/03 IV 1312 Morphine Sulfate 4 MG Q2-3 HRS NEEDED.. 09/29 0800 AC 10/02 IV 1404 Ondansetron HCl 4 MG Q6P PRN 10/01 0015 AC 10/01 IV 0018 Pantoprazole Sodium 40 MG DAILY 09/27 1537 AC 10/03 IV 0934 Phenol 2 SPRAY Q2P PRN 10/01 0015 AC EXT Potassium Chloride 10 MEQ Q1H 10/03 0815 DC 10/03 IV 10/03 0916 0934 Total Parenteral 1 UNIT 1900 10/03 1900 AC Nutrition IV 10/04 1859 Total Parenteral 1 UNIT 1700 10/03 1700 DC Nutrition IV 10/04 1659 Impression/Plan Impression/Problem List Impression: 32-year-old gentleman with past medical history significant for right lower extremity DVT and PE on Pradaxa(February 2017) and refractory ulcerative colitis who was admitted directly to surgical service for laparoscopic total proctocolectomy with formation of ileoanal J-pouch and diverticular loop ileostomy, postop day 4, was transferred to the ICU yesterday after on chest x- ray he was found to have a moderate right sided pneumothorax and extensive subcutaneous emphysema about the neck and chest. Problem List: #Respiratory #Post surgical complications of : Moderate right-sided pneumothorax, Bilateral pleural effusions, Pneumomediastinum, Subcutaneous emphysema, atelectasis Lungs reexpanded with chest tube. Subq emphysema decreasing. Repeat CXR reveals resolution of pneumothorax however pneumomediastinum and pleural effusions persists. -per Pulm : if fever get diagnostic us tap of L pleueral effusion and specifiy amylase -cont incentive spirometry -cont surgery and CT surgery recs Infection Persistent leukocytosis Most likely due to stress/steroids. Pt received 4 doses of unasyn. WBC downtrending. -cont off abx Cardiac #Persistent tachycardia CTA negative for PE. Possibly due to pain. Given 1 bag of lactated Ringer's yesterday (10/02) for hypotension. -cont pain control -cont fluids @ 125/hr for borderline bp Hemeonc #Anemia Patient's hemoglobin dropped from 9.2->7.4 after chest tube removal. Repeat chest x-ray did not find any sources of bleeding from the removal site. -Patient will be transfused 2 units. f/u post transfusion cbc -Will give Lasix 20 mg IV if fluid overloaded -f/u stool guaiac #History of RUE DVT and PE on Pradaxa -holding pradaxa. cont sc heparin Metabolic #dehydration and low UO Improved urine output after adding 1L LR bolus yesterday. -cont fluids (D5NS) @ 125 and increase as needed with discussion with surgery -cont monitoring I/O #electrolytes -repleting electrolytes prn (calcium, mag, k) Alimentary #Hx of ulcerative colitis s/p laparoscopic total proctocolectomy with formation of ileoanal J-pouch and diverticular loop ileostomy, POD 6. -Ileus found on CT abdomen. NG tube removed today per sx. start clear liquid diet. -Patient will be getting central line and will be started on TPN -cont solucortef taper -cont zofran, protonix -f/u nutrition consult Neuro -No Issues Skin #LE edema Patietn has had long standing pedal edema as he is a vegetarian and has low protein intake. -Pedal edema worse compared to baseline per patient and family. Most likely secondary to poor nutrition status and low albumin. -Continue to monitor for fluid overload as the patient is getting fluids -Holding off Lasix at this time due to low urine output. #Flushing - improved -possibly due to steroids. Cont to monitor for fevers #Subq emphysema -cont to monitor as stated above Housekeeping -R PICC line + TPN -R ileostomy -clear liquid diet -FULL CODE -DVT PPX: heparin subq Problem List: 1. Pleural effusion 2. Leukocytosis 3. Pneumomediastinum 4. S/P total colectomy 5. Ulcerative colitis 6. On total parenteral nutrition Pain Ratin Pain Location: abd Tomorrow's Labs & Rationales: icu bundle cbc Plan DVT/Prophylaxis: heparin subq Walter FRAUSTO,[facility] 10/03/17 1107: Attending MD Review Statement Attending Sign Off Attending Cosign Statement: I have: examined this patient, reviewed [facility] EMR data, personally reviewd images, discussd w/resident/PA/TAXI DANCER, discussed mgmt plan w/katharine, discussed mgmt plan w/CM, discussed mgmt plan w/pt, agreed w/resident/PA/TAXI DANCER, amended to note. Other Findings: Seen and examined independently Getting his PICC line Blood work reviewed BUN/creatinine stable White count down to 12.8 Hemoglobin at 7.3 Platelets 4:30 Last INR was unremarkable Cultures are unremarkable Chest x-ray done which showed small bilateral effusion with associated airspace opacity slightly increased from prior Patient has been afebrile now on room air General Appearance: no apparent distress, alert, awake Ears, Nose, Throat: NGT with green bilious drainage Respiratory: anterior lung sounds clear. Cardiovascular: tachycardia Gastrointestinal: decreased BS. no tenderness to palpation. R ileostomy Extremities: 1+ LE edema. 3+ foot edema - patient and mom states only slightly larger than normal This a gentleman with history of previous DVT was on Pradaxa up until 2017, refractory ulcerative colitis, recent laparoscopic total proctocolectomy with ileoanal pouch, diverticular loop ileostomy, postoperative day came into the ICU as he was found to have an incidental large right-sided pneumothorax with extensive subcutaneous emphysema with pneumomediastinum which is slowly improving. Patient was initially treated with a chest tube which is now been removed. His issues include * Recent pneumothorax which is resolved * Pneumomediastinum slowly improving * Small Left-sided effusion which needs to be tapped, if he develops evidence of fever and leukocytosis * Afebrile now off antibiotics * Remote history of right upper extremity DVT was on Pradaxa now stable on subcutaneous heparin * Resolve Dehydration * Significant ileus with an NG tube being managed by surgical unit * Malnutrition with status post surgery. RECOMMENDATION Cont current meds Management of pneumothorax and pneumomediastinum her cardiothoracic Watch for any signs of sepsis Watch for fluid overload and if he gets transfusion then give one dose of lasix 20 mg DC cantu Replace electrolytes Minimize benzodiazepine Continue morphine prn We will follow closely for any signs of sepsis We will follow closely for any signs of sepsis
--- NOTE | 2017-10-03 07:58 | PN- General Surgery ---
Surgical Brief Attending Note Brief Attending Note: She appears to be making slow clinical progress Heart rate improving Afebrile overnight Urine output improved Blood cell count coming down Continues to have high output from nasogastric tube and ileostomy Plan is as follows: Transfused 2 units of packed cells today Due nasogastric clamping trial Obtain decline and start TPN today Keep Joseph for 1 more day to monitor I's and O's IV fluids until we can start TPN Continue to wean steroids
[2017-10-03 08:00] VITALS: BP 120/70
--- NOTE | 2017-10-03 08:56 | RADIOLOGY REPORT ---
EXAMINATION: XR PORTABLE CHEST CLINICAL INFORMATION: Follow-up right-sided pneumothorax. Status post chest tube removal. COMPARISON: Most recent prior chest radiograph done on 10/02/2017. TECHNIQUE: Portable frontal view of the chest was obtained. FINDINGS: The right-sided chest tube has been removed in the interim since the prior study. There is no definite residual right apical pneumothorax identified on this portable upright frontal view. Persistent airspace opacities noted at the left lower lung field associated with obliteration of the left lateral CP angle and left hemidiaphragm, consistent with left lower lobar nonspecific airspace disease with small left-sided pleural effusion. Subtle airspace opacities also noted at right lower lung field, may represent hypoventilatory, atelectatic changes or infiltrate, unchanged. There is an enteric tube identified with its tip seen within the stomach, unchanged. Subcutaneous emphysema is noted within the visualized lower neck on the left, unchanged. IMPRESSION: 1. No definite radiographic evidence of right-sided residual pneumothorax. Status post removal of the right-sided chest tube. 2. Nonspecific stable left lower lobar airspace disease and small left-sided pleural effusion. 3. Nonspecific stable airspace disease at right lower lung field. 4. The tip of the enteric tube is seen projecting within the fundus of the stomach, unchanged.
[2017-10-03 12:00] VITALS: BP 120/70
--- NOTE | 2017-10-03 12:23 | RADIOLOGY REPORT ---
EXAMINATION: XR PORTABLE CHEST CLINICAL INFORMATION: PICC line placement. Per chart: 5-year-old male patient with history of ulcer colitis. Pneumothorax. Postop ileus. Status post colectomy. COMPARISON: Portable chest x-ray done earlier today. TECHNIQUE: Portable AP semierect view of the chest was obtained. FINDINGS: An NG tube remains directed into the stomach. A new right-sided PICC line is in place and the tip is in the right atrium. There are bilateral pleural effusions greater on the left than right. IMPRESSION: 1. Tip of PICC line in the right atrium. 2. Bilateral pleural effusions larger on the left than right.
--- NOTE | 2017-10-03 14:33 | RADIOLOGY REPORT ---
EXAMINATION: XR PORTABLE CHEST CLINICAL INFORMATION: PICC line verification. PICC line retracted. We verify placement. COMPARISON: Prior examinations most recent performed same day at 11:33 AM TECHNIQUE: Portable frontal view of the chest was obtained. FINDINGS: PICC line is noted with the tip is at the cavoatrial junction level. Previously within the right atrium There is a persistent mild/moderate size left pleural effusion and opacity at the right base likely atelectasis. NG tube remains in place with the tip below the diaphragm in the region of the stomach. Cardiac silhouette mediastinum pulmonary vascularity are normal. IMPRESSION: PICC line repositioned with tip at the cavoatrial junction Unchanged left pleural effusion and atelectasis at the right base.
[2017-10-03 16:00] VITALS: BP 112/70
[2017-10-03 23:00] VITALS: BP 120/50
[2017-10-04 04:59] LABS: ABSOLUTE BASOPHIL COUNT 0 /CUMM (0.0-0.2); ABSOLUTE EOSINOPHIL COUNT 0.1 /CUMM (0.0-0.7); ABSOLUTE GRANULOCYTE CT 8.2 /CUMM (1.4-6.5); ABSOLUTE LYMPH COUNT 0.7 /CUMM (1.2-3.4); ABSOLUTE MONOCYTE COUNT 0.8 /CUMM (0.10-0.60); BASOPHIL % 0.2 % (0.0-2.0); EOSINOPHIL % 0.5 % (0-5); GRANULOCYTE % 83.4 % (42.2-75.2); MEAN CORPUSCULAR HGB 27.4 PG (27.0-31.0); MEAN CORPUSCULAR HGB CONC 31.8 G/DL (33.0-37.0); MEAN CORPUSCULAR VOLUME 85.9 FL (80.0-94.0); MEAN PLATELET VOLUME 6.2 FL (7.4-10.4); PLATELET COUNT 442 /CUMM (130-400); RBC DISTRIBUTION WIDTH 15.1 % (11.5-14.5); WHITE BLOOD CELL COUNT 9.9 /CUMM (4.8-10.8)
[2017-10-04 05:14] LABS: HEMATOCRIT 30.7 % (42-52); RED BLOOD CELL CT 3.57 /CUMM (4.70-6.10)
--- NOTE | 2017-10-04 05:16 | PN- General Surgery ---
BethanyAngely 10/04/17 0514: Subjective Subjective: 32 y/o male POD#7 robotic total proctocolectomy, right pneumo with resolution after piggytail cath and symtomatic hypovolemia. Recieved 2 units of blood last night with 40mg lasix. duiresed 1600 cantu and 375 from stomo. Feels better this am, no SOB, decreased peripheral edema and HR in the 70's. Patient sleeping and very tired this morning. He had minimal rest overnight. Review of Systems: no fevers or chills no SOB or chest pain no complaints of abdominal pain Objective Vital Signs and I&Os Vital Signs Date Time Temp Pulse Resp B/P B/P Pulse O2 O2 Flow FiO2 Mean Ox Delivery Rate 10/04 0400 97 Nasal 2.0L Cannula 10/04 0000 96 Nasal 2.0L Cannula 10/03 2300 98.8 83 19 120/50 96 Nasal 2.0L Cannula 10/03 2000 95 Nasal 2.0L Cannula 10/03 1600 99.3 101 25 112/70 96 Room Air 10/03 1600 96 Room Air 10/03 1200 96 Room Air 10/03 1200 99.1 102 22 120/70 95 Room Air 10/03 0800 98.5 98 18 120/70 99 Nasal 2.0L Cannula 10/03 0800 99 Nasal 2.0L Cannula 10/03 0700 98.5 94 19 116/76 99 Nasal 2.0L Cannula Intake & Output 10/04 0800 10/04 0000 05/10 1600 /10 0800 10/03 0000 05/09 1600 Intake Total 1365 1387 1000 1050 2595 Output Total 2350 400 512 891 9187 Balance -985 987 934 794 4747 Intake, Blood 320 300 Product Intake, IV 590 532 3804 1050 2595 Intake, Oral 100 100 0 Intake, Tube 0 Feeding Intake, Tube 0 Irrigant Output, Chest 0 Tube Drainage Output, 260 190 350 Gastric Drainage Output, Stool 525 150 250 300 759 Output, Urine 1825 250 185 440 210 Patient 130 lb Weight Patient sleeping but arousable VSS afebrile chest - CTA Symmetric Heart 70-90s regular without MRG abdomen- stoma with brown liquid, nothing formed 375 output, soft with BS legs -bilateral edema, calves soft without pain Assessment/Plan Assessment/Plan 2 units RBC yesterday with lasix -awaiting morning labs nutrition -TPN decrease IVF 50/hr now on clears strict i&os prn painmeds -pain contolled overnight cont cantu till this afternoon then D/C needs oob with PT and ambulation encouraged alps, hep sq will dw attending Core Measures Venous Thromboembolism VTE Risk Factors No risk factors No Mechanical VTE Prophylaxis d/t N/A MechProphylax Ordered No VTE Pharm Prophylaxis d/t NA PharmProphylax ordered Kilo Brown MD 10/04/17 1420: Attending MD Review Statement Attending Statement Attending Assessment/Plan: Looks great. WBC 9 and taking clears. TPN infusing Copious urine output. Appreciate ICU care
[2017-10-04 08:00] VITALS: BP 104/50
--- NOTE | 2017-10-04 08:43 | PN- Resident CRCU ---
Irving FRAUSTO,[facility] 10/04/17 0842: Subjective HPI/CRCU Issues: Patient received 2 units of PRBC and Lasix last night. Continues to state that his feet are swollen. Tolerating clear liquid diet well. Objective Vital Signs & I&O Last 8 Hrs of Vitals and I&O: Laboratory Tests 10/04/17 0600: Triglycerides Cancelled 10/04/17 0430: Anion Gap 4 L, Estimated GFR > 60, Glucose 110 H, Calcium 7.4 L, Phosphorus 3.1, Magnesium 1.9, Total Bilirubin 0.2, AST 16 L, ALT 20 L, Albumin 1.6 L, Triglycerides 141, CBC w Diff MAN DIFF ORDERED, RBC 3.57 L, MCV 85.9, MCH 27.4, MCHC 31.8 L, RDW 15.1 H, MPV 6.2 L, Gran % 83.4 H, Lymphocytes % 7.5 L, Monocytes % 8.4, Eosinophils % 0.5, Basophils % 0.2, Absolute Granulocytes 8.2 H, Segmented Neutrophils 98 H, Absolute Lymphocytes 0.7 L, Lymphocytes 1 L, Monocytes 1 L, Absolute Monocytes 0.8 H, Absolute Eosinophils 0.1, Absolute Basophils 0, Platelet Estimate INCREASED, Polychromasia 1+, Hypochromic- Microcytic 2+, Poikilocytosis 1+, Ovalocytes 1+, Fld Total RBCs Counted 100 Vital Signs Date Time Temp Pulse Resp B/P B/P Pulse O2 O2 Flow FiO2 Mean Ox Delivery Rate 10/05 799 98.2 82 20 104/50 98 Room Air 10/04 0400 97 Nasal 2.0L Cannula 10/04 0000 96 Nasal 2.0L Cannula 10/03 2300 98.8 83 19 120/50 96 Nasal 2.0L Cannula 10/03 2000 95 Nasal 2.0L Cannula 10/03 1600 99.3 101 25 112/70 96 Room Air 10/03 1600 96 Room Air Intake & Output 10/04 1600 10/04 0800 10/04 0000 Intake Total 724.0 1365 Output Total 1070 2350 Balance -346.0 -985 Intake, Blood 320 Product Intake, IV 395 945 Intake, Lipid 33.0 Intake, Oral 100 Intake, 296 TPN/PPN Output, Stool 450 525 Output, Urine 620 1825 Exam General Appearance: no apparent distress, alert, awake Respiratory: decreased lung sounds at bases. No crackles rales or rhonchi Cardiovascular: regular rate/rhythm Gastrointestinal: normal bowel sounds. Mild diffuse abdominal pain. Right colostomy bag draining green bilious fluid Extremities: 4+ foot edema, PICC line, No bleeding from chest tube site, 2+ radial pulses Other Physical Findings: Patient still has Cantu catheter Current Medications: Current Medications Sig/Sienna Start time Last Medication Dose Route Stop Time Status Admin Calcium Gluconate 1 GM ONCE ONE 10/04 0900 CAN Sodium Chloride 100 ML IV 10/04 0959 Calcium Gluconate 1 GM ONCE ONE 10/03 1315 DC 10/03 Sodium Chloride 100 ML IV 10/03 1414 1639 Dextrose/Sodium 1,000 ML Q13H 09/30 1999 10/04 Chloride IV 0507 Diphenhydramine HCl 50 MG Q6P PRN 09/27 1545 IV Fat Emulsion 200 ML 10/04 1900 AC Intravenous IV 10/05 1859 Fat Emulsion 100 ML Q24H 10/03 190 10/03 Intravenous IV 10/04 1852004 Furosemide 40 MG ONCE ONE 10/03 1930 DC 10/03 IV 10/03 1931 1921 Heparin Sodium 5,000 UNIT Q8 09/28 0745 10/04 (Porcine) SC 0605 Lorazepam 0.5 MG Q4P PRN 10/01 14 10/02 IV 2304 Magnesium Sulfate 1 GM ONCE ONE 10/04 09 AC 10/04 Dextrose/Water 100 ML IV 10/04 1259 1002 Meclizine HCl 12.5 MG TID PRN 09/27 1815 09/27 PO 2013 Morphine Sulfate 2 MG Q2-3 HRS PRN 10/01 001 10/03 IV 1835 Morphine Sulfate 4 MG Q2-3 HRS NEEDED.. 09/29 0800 10/04 IV 0807 Ondansetron HCl 4 MG Q6P PRN 10/01 0015 10/01 IV 0018 Pantoprazole Sodium 40 MG DAILY 09/27 1537 10/04 IV 0801 Phenol 2 SPRAY Q2P PRN 10/01 0015 AC EXT Potassium Chloride 20 MEQ ONCE ONE 10/04 0545 DC 10/04 IV 10/04 0546 0603 Total Parenteral 1 UNIT 0 10/04 190 AC Nutrition IV 10/05 1859 Total Parenteral 1 UNIT 1900 10/03 1900 AC 10/03 Nutrition IV 10/04 Total Parenteral 1 UNIT 1700 10/03 1700 DC Nutrition IV 10/04 1659 Impression/Plan Impression/Problem List Impression: 32-year-old gentleman with past medical history significant for right lower extremity DVT and PE on Pradaxa(February 2017) and refractory ulcerative colitis who was admitted directly to surgical service for laparoscopic total proctocolectomy with formation of ileoanal J-pouch and diverticular loop ileostomy was transferred to the ICU after on chest x-ray he was found to have a moderate right sided pneumothorax and extensive subcutaneous emphysema about the neck and chest. Problem List: #Respiratory #Post surgical complications of : Moderate right-sided pneumothorax, Bilateral pleural effusions, Pneumomediastinum, Subcutaneous emphysema, atelectasis Lungs reexpanded with chest tube. Subq emphysema decreasing. Repeat CXR reveals resolution of pneumothorax however pneumomediastinum and pleural effusions persists. -per Pulm : if fever get diagnostic us tap of L pleueral effusion and specifiy amylase -cont incentive spirometry -cont surgery and CT surgery recs Infection Persistent leukocytosis - resolved Most likely due to stress/steroids. Pt received 4 doses of unasyn. WBC downtrending and now normal. -cont off abx Cardiac #Persistent tachycardia CTA negative for PE. Possibly due to pain. Given fluids for hypotension. Started on TPN and fluids decreased. BP now improved. -cont pain control -cont fluids @ 50/hr Hemeonc #Anemia Patient's hemoglobin dropped from 9.2->7.4 after chest tube removal. Repeat chest x-ray did not find any sources of bleeding from the removal site. Patient transfused 2 units +lasix. Current h/h 9.8/30.7 -cont to monitor -f/u stool guaiac #History of RUE DVT and PE on Pradaxa -holding pradaxa. cont sc heparin Metabolic #intravascular dehydration and low UO Improved urine output after adding 1L LR bolus the other day. Increased UO after lasix 40 IV after 2 untis prbc. -cont monitoring I/O #electrolytes -repleting electrolytes prn (calcium, mag, k) Alimentary #Hx of ulcerative colitis s/p laparoscopic total proctocolectomy with formation of ileoanal J-pouch and diverticular loop ileostomy, POD 7. Completed solucortef taper. -Ileus found on CT abdomen. NG tube removed. Currently tolerating clear liquid diet. -cont TPN via central line -cont zofran, protonix -f/u nutrition consult Neuro -No Issues Skin #LE edema Patijessy has had long standing pedal edema as he is a vegetarian and has low protein intake. Pedal edema worse compared to baseline per patient and family. Most likely secondary to poor nutrition status and low albumin. -received lasix s/p 2 units prbc yesterday -Continue to monitor for fluid overload as the patient is getting fluids #Flushing - improved -possibly due to steroids. Cont to monitor for fevers #Subq emphysema -cont to monitor as stated above Housekeeping -cantu still in -R PICC line + TPN -R ileostomy -clear liquid diet -FULL CODE -DVT PPX: heparin subq Problem List: 1. Pneumothorax 2. Pleural effusion 3. Pneumomediastinum 4. On total parenteral nutrition 5. Ulcerative colitis 6. S/P total colectomy Pain Ratin Tomorrow's Labs & Rationales: icu bundle cbc Plan DVT/Prophylaxis: heparin subq Walter FRAUSTO,[facility] 10/04/17 1322: Attending MD Review Statement Attending Sign Off Attending Cosign Statement: I have: examined this patient, reviewed [employer] EMR data, personally reviewd images, discussd w/resident/PA/HOME THERAPY CLINICIAN, discussed mgmt plan w/katharine, discussed mgmt plan w/CM, discussed mgmt plan w/pt, agreed w/resident/PA/HOME THERAPY CLINICIAN, amended to note. Other Findings: General Appearance: no apparent distress, alert, awake Ears, Nose, Throat: NGT with green bilious drainage Respiratory: anterior lung sounds clear. Cardiovascular: tachycardia Gastrointestinal: decreased BS. no tenderness to palpation. R ileostomy Extremities: 1+ LE edema. 3+ foot edema - patient and mom states only slightly larger than normal This a gentleman with history of previous DVT was on Pradaxa up until 2017, refractory ulcerative colitis, recent laparoscopic total proctocolectomy with ileoanal pouch, diverticular loop ileostomy, postoperative day came into the ICU as he was found to have an incidental large right-sided pneumothorax with extensive subcutaneous emphysema with pneumomediastinum which is slowly improving. Patient was initially treated with a chest tube which is now been removed. His issues include * Recent pneumothorax which is resolved * Pneumomediastinum slowly improving * Small Left-sided effusion which needs to be tapped, if he develops evidence of fever and leukocytosis * Afebrile now off antibiotics * Remote history of right upper extremity DVT was on Pradaxa now stable on subcutaneous heparin * Malnutrition with status post surgery. RECOMMENDATION Cont current meds Management of pneumothorax and pneumomediastinum her cardiothoracic Watch for any signs of sepsis Replace electrolytes Minimize benzodiazepine Continue morphine prn reduce the dose
[2017-10-04 16:00] VITALS: BP 116/60
[2017-10-04 23:39] VITALS: BP 128/82
[2017-10-05 04:53] LABS: ABSOLUTE BASOPHIL COUNT 0 /CUMM (0.0-0.2); ABSOLUTE EOSINOPHIL COUNT 0 /CUMM (0.0-0.7); ABSOLUTE GRANULOCYTE CT 6.5 /CUMM (1.4-6.5); ABSOLUTE LYMPH COUNT 0.7 /CUMM (1.2-3.4); ABSOLUTE MONOCYTE COUNT 0.7 /CUMM (0.10-0.60); BASOPHIL % 0.3 % (0.0-2.0); EOSINOPHIL % 0.4 % (0-5); GRANULOCYTE % 82.4 % (42.2-75.2); HEMATOCRIT 31.8 % (42-52); MEAN CORPUSCULAR HGB 27.4 PG (27.0-31.0); MEAN CORPUSCULAR VOLUME 85.5 FL (80.0-94.0); MEAN PLATELET VOLUME 6.4 FL (7.4-10.4); PLATELET COUNT 462 /CUMM (130-400); RBC DISTRIBUTION WIDTH 14.9 % (11.5-14.5); RED BLOOD CELL CT 3.72 /CUMM (4.70-6.10); WHITE BLOOD CELL COUNT 7.9 /CUMM (4.8-10.8)
--- NOTE | 2017-10-05 06:53 | PN- General Surgery ---
See Addendum Subjective Subjective: Patient doing well this morning. Has been oob and to the chair. Voided after cantu removal. Pain controlled. Tolerating sips. No other issues or complaints. Objective Vital Signs and I&Os Vital Signs Date Time Temp Pulse Resp B/P B/P Pulse O2 O2 Flow FiO2 Mean Ox Delivery Rate 10/05 0400 96 Nasal 1.0L Cannula 10/05 0000 95 Nasal 1.0L Cannula 10/04 2339 99.9 110 24 128/82 94 Room Air 10/04 2000 100 Nasal 1.0L Cannula 10/04 1600 97 Nasal 1.0L Cannula 10/04 1600 99.6 95 20 116/60 97 Nasal 1.0L Cannula 10/04 1200 98 Nasal 1.0L Cannula 10/04 0800 98.2 82 20 104/50 98 Room Air 10/04 0800 97 Nasal 1.0L Cannula Intake & Output 10/05 0800 10/05 0000 10/04 1600 10/04 0800 10/04 0000 10/03 1600 Intake Total 1227.0 1536.0 1927.0 724.0 1365 1387 Output Total 1500 1900 1750 1070 2350 400 Balance -273.0 -364.0 177.0 -346.0 -985 987 Intake, Blood 320 300 Product Intake, IV 379 445 521 395 945 987 Intake, Lipid 65.0 42.0 33.0 33.0 Intake, Oral 651 994 8458 100 100 Intake, 423 329 293 296 TPN/PPN Output, Stool 600 550 800 450 525 150 Output, Urine 900 1350 941 227 3411 250 Patient 130 lb Weight Physical Exam: General: A, A, NAD Abdomen: Softly distended, tympanitic, appropriately ttp, suprapubic incision c/ d/i with katy in place, Right ileostomy pink/functioning/viable with brown liquid in appliance Extremities: No clubbing, cyanosis or edema Current Medications: Current Medications Sig/Sienna Start time Last Medication Dose Route Stop Time Status Admin Calcium Gluconate 1 GM ONCE ONE 10/04 0900 CAN Sodium Chloride 100 ML IV 10/04 0959 Dextrose/Sodium 1,000 ML Q13H 09/30 1999 AC 10/05 Chloride IV 0341 Diphenhydramine HCl 50 MG Q6P PRN 09/27 1545 AC IV Fat Emulsion 200 ML 1900 11 1900 AC 10/04 Intravenous IV 10/05 Fat Emulsion 100 ML Q24H 10/03 190 DC 10/03 Intravenous IV 10/04 Heparin Sodium 5,000 UNIT Q8 09/28 0745 10/05 (Porcine) SC 0632 Lorazepam 0.5 MG Q4P PRN 10/01 001 AC 10/02 IV 2304 Magnesium Sulfate 1 GM ONCE ONE 10/04 0900 DC 10/04 Dextrose/Water 100 ML IV 10/04 1259 1002 Meclizine HCl 12.5 MG TID PRN 09/27 1815 09/27 PO 2013 Morphine Sulfate 2 MG Q2-3 HRS PRN 10/01 001 10/05 IV 0626 Morphine Sulfate 4 MG Q2-3 HRS NEEDED.. 09/29 0800 AC 10/04 IV 0807 Ondansetron HCl 4 MG Q6P PRN 10/01 001 10/01 IV 0018 Pantoprazole Sodium 40 MG DAILY 09/27 1537 10/04 IV 0801 Phenol 2 SPRAY Q2P PRN 10/01 001 EXT Potassium Chloride 20 MEQ ONCE ONE 10/04 1445 DC 10/04 IV 10/04 1446 1457 Potassium Chloride 10 MEQ Q1H 10/04 1345 DC IV 10/04 1446 Total Parenteral 1 UNIT 10/04 AC 10/04 Nutrition IV 10/05 Total Parenteral 1 UNIT 10/03 DC 10/03 Nutrition IV 10/04 Results Last 48 Hours of Labs: Laboratory Tests 10/05 10/04 0405 0600 Chemistry Sodium (137 - 145 mmol/L) 142 Potassium (3.5 - 5.1 mmol/L) 3.4 L Chloride (98 - 107 mmol/L) 104 Carbon Dioxide (22 - 30 mmol/L) 31 H Anion Gap (5 - 16) 7 BUN (9 - 20 mg/dL) 2 L Creatinine (0.7 - 1.2 mg/dL) 0.4 L Estimated GFR (>60 ml/min) > 60 Glucose (65 - 99 mg/dL) 133 H Calcium (8.4 - 10.2 mg/dL) 7.5 L Phosphorus (2.5 - 4.5 mg/dL) 3.7 Magnesium (1.6 - 2.3 mg/dL) 1.9 Total Bilirubin (0.2 - 1.3 mg/dL) < 0.1 L AST (17 - 59 U/L) 19 ALT (21 - 72 U/L) 28 Albumin (3.5 - 5.0 g/dL) 1.8 L Triglycerides Cancelled Hematology CBC w Diff NO MAN DIFF REQ WBC (4.8 - 10.8 /CUMM) 7.9 RBC (4.70 - 6.10 /CUMM) 3.72 L Hgb (14.0 - 18.0 G/DL) 10.2 L Hct (42 - 52 %) 31.8 L MCV (80.0 - 94.0 FL) 85.5 MCH (27.0 - 31.0 PG) 27.4 MCHC (33.0 - 37.0 G/DL) 32.0 L RDW (11.5 - 14.5 %) 14.9 H Plt Count (130 - 400 /CUMM) 462 H MPV (7.4 - 10.4 FL) 6.4 L Gran % (42.2 - 75.2 %) 82.4 H Lymphocytes % (20.5 - 51.1 %) 8.4 L Monocytes % (1.7 - 9.3 %) 8.5 Eosinophils % (0 - 5 %) 0.4 Basophils % (0.0 - 2.0 %) 0.3 Absolute Granulocytes (1.4 - 6.5 /CUMM) 6.5 Absolute Lymphocytes (1.2 - 3.4 /CUMM) 0.7 L Absolute Monocytes (0.10 - 0.60 /CUMM) 0.7 H Absolute Eosinophils (0.0 - 0.7 /CUMM) 0 Absolute Basophils (0.0 - 0.2 /CUMM) 0 10/04 0430 Chemistry Sodium (137 - 145 mmol/L) 137 Potassium (3.5 - 5.1 mmol/L) 3.3 L Chloride (98 - 107 mmol/L) 102 Carbon Dioxide (22 - 30 mmol/L) 31 H Anion Gap (5 - 16) 4 L BUN (9 - 20 mg/dL) 5 L Creatinine (0.7 - 1.2 mg/dL) 0.5 L Estimated GFR (>60 ml/min) > 60 Glucose (65 - 99 mg/dL) 110 H Calcium (8.4 - 10.2 mg/dL) 7.4 L Phosphorus (2.5 - 4.5 mg/dL) 3.1 Magnesium (1.6 - 2.3 mg/dL) 1.9 Total Bilirubin (0.2 - 1.3 mg/dL) 0.2 AST (17 - 59 U/L) 16 L ALT (21 - 72 U/L) 20 L Albumin (3.5 - 5.0 g/dL) 1.6 L Triglycerides (<150 mg/dL) 141 Hematology CBC w Diff MAN DIFF ORDERED WBC (4.8 - 10.8 /CUMM) 9.9 RBC (4.70 - 6.10 /CUMM) 3.57 L Hgb (14.0 - 18.0 G/DL) 9.8 L Hct (42 - 52 %) 30.7 L MCV (80.0 - 94.0 FL) 85.9 MCH (27.0 - 31.0 PG) 27.4 MCHC (33.0 - 37.0 G/DL) 31.8 L RDW (11.5 - 14.5 %) 15.1 H Plt Count (130 - 400 /CUMM) 442 H MPV (7.4 - 10.4 FL) 6.2 L Gran % (42.2 - 75.2 %) 83.4 H Lymphocytes % (20.5 - 51.1 %) 7.5 L Monocytes % (1.7 - 9.3 %) 8.4 Eosinophils % (0 - 5 %) 0.5 Basophils % (0.0 - 2.0 %) 0.2 Absolute Granulocytes (1.4 - 6.5 /CUMM) 8.2 H Segmented Neutrophils (42.2 - 75.2 %) 98 H Absolute Lymphocytes (1.2 - 3.4 /CUMM) 0.7 L Lymphocytes (20.5 - 51.1 %) 1 L Monocytes (1.7 - 9.3 %) 1 L Absolute Monocytes (0.10 - 0.60 /CUMM) 0.8 H Absolute Eosinophils (0.0 - 0.7 /CUMM) 0.1 Absolute Basophils (0.0 - 0.2 /CUMM) 0 Platelet Estimate (ADEQUATE) INCREASED Polychromasia 1+ Hypochromic-Microcytic 2+ Poikilocytosis 1+ Ovalocytes 1+ Other Body Source Fld Total RBCs Counted (%) 100 Assessment/Plan Assessment/Plan This is a 32 yo male who is POD#8 s/p robotic total proctocolectomy, jpouch and ileostomy creation. Hospital course complicated by ptx which required IR chest tube; resolved, and post operative anemia with subsequent transfusion. Clinically improving. Ambulate Pain Control GI/DVT Px Sips/TPN, consider clears IS/Turn, Cough, Deep breathe Trend labs Ostomy care/teaching Pradaxa on hold for PE hx Transfer to the surgical floor Will d/w Dr. Santiago Core Measures Venous Thromboembolism VTE Risk Factors No risk factors No Mechanical VTE Prophylaxis d/t N/A MechProphylax Ordered No VTE Pharm Prophylaxis d/t NA PharmProphylax ordered
[2017-10-05 08:00] VITALS: BP 130/80
--- NOTE | 2017-10-05 08:24 | PN- Resident CRCU ---
Subjective HPI/CRCU Issues: No acute events overnight. Patient tolerating clears. Continues to have some abdominal pain. Objective Vital Signs & I&O Last 8 Hrs of Vitals and I&O: Laboratory Tests 10/05/17 0405: Anion Gap 7, Estimated GFR > 60, Glucose 133 H, Calcium 7.5 L, Phosphorus 3.7, Magnesium 1.9, Total Bilirubin < 0.1 L, AST 19, ALT 28, Albumin 1.8 L, CBC w Diff NO MAN DIFF REQ, RBC 3.72 L, MCV 85.5, MCH 27.4, MCHC 32.0 L, RDW 14.9 H , MPV 6.4 L, Gran % 82.4 H, Lymphocytes % 8.4 L, Monocytes % 8.5, Eosinophils % 0.4, Basophils % 0.3, Absolute Granulocytes 6.5, Absolute Lymphocytes 0.7 L, Absolute Monocytes 0.7 H, Absolute Eosinophils 0, Absolute Basophils 0 Vital Signs Date Time Temp Pulse Resp B/P B/P Pulse O2 O2 Flow FiO2 Mean Ox Delivery Rate 10/05 0800 98 Nasal 1.0L Cannula 10/05 0800 97.9 84 18 130/80 98 Nasal 1.0L Cannula Intake & Output 10/05 1600 Intake Total 940 Output Total 1925 Balance -985 Intake, IV 580 Intake, Oral 360 Output, Stool 850 Output, Urine 1075 Intake & Output 10/05 1600 Intake Total 940 Output Total 1925 Balance -985 Intake, IV 580 Intake, Oral 360 Output, Stool 850 Output, Urine 1075 Exam General Appearance: no apparent distress, alert, awake Respiratory: anterior lung willis clear Cardiovascular: tachycardia, flow murmur Gastrointestinal: decreased BS. RLE tenderness > LLQ, R ileostomy with green stool Extremities: 2/3+ foot edema. improved from yesterday afer elevation. Current Medications: Current Medications Sig/Sienna Start time Last Medication Dose Route Stop Time Status Admin Dextrose/Sodium 1,000 ML Q13H 09/30 1999 AC 10/05 Chloride IV 034 Diphenhydramine HCl 50 MG Q6P PRN 09/27 1545 AC IV Fat Emulsion 500 ML Q24H 10/05 1900 AC Intravenous IV 10/06 1858 Fat Emulsion 200 ML 10/04 190 AC 10/04 Intravenous IV 10/05 1858 194 Fat Emulsion 100 ML Q24H 10/03 1900 DC 05/10 Intravenous IV 10/04 1858 2005 Furosemide 20 MG ONCE ONE 10/05 1115 DC 05/ PO 10/05 1116 1157 Heparin Sodium 5,000 UNIT Q8 09/28 0745 AC 10/05 (Porcine) SC 1409 Lorazepam 0.5 MG Q4P PRN 10/01 0015 AC 10/02 IV 2304 Magnesium Sulfate 1 GM ONCE ONE 10/05 0830 DC 10/05 Dextrose/Water 100 ML IV 10/05 1229 0831 Meclizine HCl 12.5 MG TID PRN 09/27 1815 AC 09/27 PO 2013 Morphine Sulfate 2 MG Q2-3 HRS PRN 10/01 0015 AC 10/05 IV 1010 Morphine Sulfate 4 MG Q2-3 HRS NEEDED.. 09/29 0800 AC 10/04 IV 0807 Ondansetron HCl 4 MG Q6P PRN 10/01 0015 AC 10/01 IV 0018 Pantoprazole Sodium 40 MG DAILY 09/27 1537 AC 10/05 IV 0820 Phenol 2 SPRAY Q2P PRN 10/01 0015 AC EXT Potassium Chloride 40 MEQ BID 10/05 1106 AC 10/05 PO 10/05 2101 1157 Potassium Chloride 20 MEQ Q1H 10/05 0830 DC 10/05 IV 10/05 0931 1120 Potassium Chloride 20 MEQ ONCE ONE 10/04 1445 DC 10/04 IV 10/04 1446 1457 Potassium Chloride 10 MEQ Q1H 10/04 1345 DC IV 10/04 1446 Total Parenteral 1 UNIT Q24H 10/05 1900 AC Nutrition IV 10/05 1901 Total Parenteral 1 UNIT 1900 10/04 1900 AC 10/04 Nutrition IV 10/05 1859 1944 Total Parenteral 1 UNIT 1900 10/03 1900 DC 10/03 Nutrition IV 10/04 Impression/Plan Impression/Problem List Impression: 32-year-old gentleman with past medical history significant for right lower extremity DVT and PE on Pradaxa(February 2017) and refractory ulcerative colitis who was admitted directly to surgical service for laparoscopic total proctocolectomy with formation of ileoanal J-pouch and diverticular loop ileostomy was transferred to the ICU after on chest x-ray he was found to have a moderate right sided pneumothorax and extensive subcutaneous emphysema about the neck and chest. Problem List: #Respiratory #Post surgical complications of : Moderate right-sided pneumothorax, Bilateral pleural effusions, Pneumomediastinum, Subcutaneous emphysema, atelectasis Lungs reexpanded with chest tube. Subq emphysema decreasing. Repeat CXR reveals resolution of pneumothorax however pneumomediastinum and pleural effusions persists. -per Pulm : if fever get diagnostic us tap of L pleueral effusion and specifiy amylase -cont incentive spirometry -cont surgery and CT surgery recs Infection Persistent leukocytosis - resolved Most likely due to stress/steroids. Pt received 4 doses of unasyn. WBC downtrending and now normal. -cont off abx Cardiac #Persistent tachycardia CTA negative for PE. Possibly due to pain. Given fluids for hypotension. Started on TPN and fluids decreased. BP now improved. -cont pain control -cont fluids @ 50/hr Hemeonc #Anemia Patient's hemoglobin dropped from 9.2->7.4 after chest tube removal. Repeat chest x-ray did not find any sources of bleeding from the removal site. Patient transfused 2 units +lasix. Current h/h 10.2/31.8. Stable -cont to monitor -f/u stool guaiac #History of RUE DVT and PE on Pradaxa -holding pradaxa. cont sc heparin Metabolic #intravascular dehydration and low UO Improved urine output after adding 1L LR bolus the other day. Increased UO after lasix 40 IV after 2 untis prbc. -cont monitoring I/O #electrolytes -repleting electrolytes prn (calcium, mag, k) Alimentary #Hx of ulcerative colitis s/p laparoscopic total proctocolectomy with formation of ileoanal J-pouch and diverticular loop ileostomy, POD 7. Completed solucortef taper. -Ileus found on CT abdomen. NG tube removed. Currently tolerating clear liquid diet. -cont TPN via central line -cont zofran, protonix -f/u nutrition consult Neuro -No Issues Skin #LE edema Patietn has had long standing pedal edema as he is a vegetarian and has low protein intake. Pedal edema worse compared to baseline per patient and family. Most likely secondary to poor nutrition status and low albumin. Improved with foot elevation. -Continue to monitor for fluid overload as the patient is getting fluids #Flushing - improved -possibly due to steroids. Cont to monitor for fevers #Subq emphysema -cont to monitor as stated above Housekeeping -R PICC line + TPN -R ileostomy -clear liquid diet -FULL CODE -DVT PPX: heparin subq Problem List: 1. S/P total colectomy 2. Ulcerative colitis 3. On total parenteral nutrition 4. Pneumomediastinum 5. Pleural effusion Pain Ratin Tomorrow's Labs & Rationales: per surgery Plan DVT/Prophylaxis: heparin subq
--- NOTE | 2017-10-05 09:54 | PN- CRCU ---
Subjective HPI/Critical Care Issues: Doing better afebrile improving Patient doing well this morning. Has been oob and to the chair. Voided after cantu removal. Pain controlled. Tolerating sips. No other issues or Objective Current Medications: Current Medications Sig/Sienna Start time Last Medication Dose Route Stop Time Status Admin Dextrose/Sodium 1,000 ML Q13H 09/30 1999 10/05 Chloride IV 0341 Diphenhydramine HCl 50 MG Q6P PRN 09/27 1545 IV Fat Emulsion 200 ML 10/04 190 AC 10/04 Intravenous IV 10/05 1858 194 Fat Emulsion 100 ML Q24H 10/03 190 SC 10/03 Intravenous IV 10/04 Heparin Sodium 5,000 UNIT Q8 09/28 0745 10/05 (Porcine) SC 0632 Lorazepam 0.5 MG Q4P PRN 10/01 0015 10/02 IV 2304 Magnesium Sulfate 1 GM ONCE ONE 10/05 0830 10/05 Dextrose/Water 100 ML IV 10/05 1229 0831 Magnesium Sulfate 1 GM ONCE ONE 10/04 0900 SC 10/04 Dextrose/Water 100 ML IV 10/04 1259 1002 Meclizine HCl 12.5 MG TID PRN 09/27 1815 09/27 PO 2013 Morphine Sulfate 2 MG Q2-3 HRS PRN 10/01 001 10/05 IV 0626 Morphine Sulfate 4 MG Q2-3 HRS NEEDED.. 09/29 0800 10/04 IV 0807 Ondansetron HCl 4 MG Q6P PRN 10/01 0015 10/01 IV 0018 Pantoprazole Sodium 40 MG DAILY 09/27 1537 10/05 IV 0820 Phenol 2 SPRAY Q2P PRN 10/01 0015 AC EXT Potassium Chloride 20 MEQ Q1H 10/05 0830 DC IV 10/05 0931 Potassium Chloride 20 MEQ ONCE ONE 10/04 1445 DC 10/04 IV 10/04 1446 1457 Potassium Chloride 10 MEQ Q1H 10/04 1345 DC IV 10/04 1446 Total Parenteral 1 UNIT 0 10/04 190 10/04 Nutrition IV 10/05 1858 194 Total Parenteral 1 UNIT 10/03 190 SC 10/03 Nutrition IV 10/04 Vital Signs & I&O Last 24 Hrs of Vitals and I&O: Vital Signs Date Time Temp Pulse Resp B/P B/P Pulse O2 O2 Flow FiO2 Mean Ox Delivery Rate 10/05 08 98 Nasal 1.0L Cannula 10/05 08 97.9 84 18 130/80 98 Nasal 1.0L Cannula 10/05 0400 96 Nasal 1.0L Cannula 10/05 0000 95 Nasal 1.0L Cannula 10/04 2339 99.9 110 24 128/82 94 Room Air 10/04 2000 100 Nasal 1.0L Cannula 10/04 1600 97 Nasal 1.0L Cannula 10/04 1600 99.6 95 20 116/60 97 Nasal 1.0L Cannula 10/04 1200 98 Nasal 1.0L Cannula Intake & Output 10/05 1600 10/05 0800 10/05 0000 Intake Total 120 1227.0 1536.0 Output Total 750 1500 1900 Balance -630 -273.0 -364.0 Intake, IV 120 379 445 Intake, Lipid 65.0 42.0 Intake, Oral 360 720 Intake, 423 329 TPN/PPN Output, Stool 250 600 550 Output, Urine 931 487 0720 Laboratory Tests 10/05 10/04 0405 0600 Chemistry Sodium (137 - 145 mmol/L) 142 Potassium (3.5 - 5.1 mmol/L) 3.4 L Chloride (98 - 107 mmol/L) 104 Carbon Dioxide (22 - 30 mmol/L) 31 H Anion Gap (5 - 16) 7 BUN (9 - 20 mg/dL) 2 L Creatinine (0.7 - 1.2 mg/dL) 0.4 L Estimated GFR (>60 ml/min) > 60 Glucose (65 - 99 mg/dL) 133 H Calcium (8.4 - 10.2 mg/dL) 7.5 L Phosphorus (2.5 - 4.5 mg/dL) 3.7 Magnesium (1.6 - 2.3 mg/dL) 1.9 Total Bilirubin (0.2 - 1.3 mg/dL) < 0.1 L AST (17 - 59 U/L) 19 ALT (21 - 72 U/L) 28 Albumin (3.5 - 5.0 g/dL) 1.8 L Triglycerides Cancelled Hematology CBC w Diff NO MAN DIFF REQ WBC (4.8 - 10.8 /CUMM) 7.9 RBC (4.70 - 6.10 /CUMM) 3.72 L Hgb (14.0 - 18.0 G/DL) 10.2 L Hct (42 - 52 %) 31.8 L MCV (80.0 - 94.0 FL) 85.5 MCH (27.0 - 31.0 PG) 27.4 MCHC (33.0 - 37.0 G/DL) 32.0 L RDW (11.5 - 14.5 %) 14.9 H Plt Count (130 - 400 /CUMM) 462 H MPV (7.4 - 10.4 FL) 6.4 L Gran % (42.2 - 75.2 %) 82.4 H Lymphocytes % (20.5 - 51.1 %) 8.4 L Monocytes % (1.7 - 9.3 %) 8.5 Eosinophils % (0 - 5 %) 0.4 Basophils % (0.0 - 2.0 %) 0.3 Absolute Granulocytes (1.4 - 6.5 /CUMM) 6.5 Absolute Lymphocytes (1.2 - 3.4 /CUMM) 0.7 L Absolute Monocytes (0.10 - 0.60 /CUMM) 0.7 H Absolute Eosinophils (0.0 - 0.7 /CUMM) 0 Absolute Basophils (0.0 - 0.2 /CUMM) 0 10/04 0430 Chemistry Sodium (137 - 145 mmol/L) 137 Potassium (3.5 - 5.1 mmol/L) 3.3 L Chloride (98 - 107 mmol/L) 102 Carbon Dioxide (22 - 30 mmol/L) 31 H Anion Gap (5 - 16) 4 L BUN (9 - 20 mg/dL) 5 L Creatinine (0.7 - 1.2 mg/dL) 0.5 L Estimated GFR (>60 ml/min) > 60 Glucose (65 - 99 mg/dL) 110 H Calcium (8.4 - 10.2 mg/dL) 7.4 L Phosphorus (2.5 - 4.5 mg/dL) 3.1 Magnesium (1.6 - 2.3 mg/dL) 1.9 Total Bilirubin (0.2 - 1.3 mg/dL) 0.2 AST (17 - 59 U/L) 16 L ALT (21 - 72 U/L) 20 L Albumin (3.5 - 5.0 g/dL) 1.6 L Triglycerides (<150 mg/dL) 141 Hematology CBC w Diff MAN DIFF ORDERED WBC (4.8 - 10.8 /CUMM) 9.9 RBC (4.70 - 6.10 /CUMM) 3.57 L Hgb (14.0 - 18.0 G/DL) 9.8 L Hct (42 - 52 %) 30.7 L MCV (80.0 - 94.0 FL) 85.9 MCH (27.0 - 31.0 PG) 27.4 MCHC (33.0 - 37.0 G/DL) 31.8 L RDW (11.5 - 14.5 %) 15.1 H Plt Count (130 - 400 /CUMM) 442 H MPV (7.4 - 10.4 FL) 6.2 L Gran % (42.2 - 75.2 %) 83.4 H Lymphocytes % (20.5 - 51.1 %) 7.5 L Monocytes % (1.7 - 9.3 %) 8.4 Eosinophils % (0 - 5 %) 0.5 Basophils % (0.0 - 2.0 %) 0.2 Absolute Granulocytes (1.4 - 6.5 /CUMM) 8.2 H Segmented Neutrophils (42.2 - 75.2 %) 98 H Absolute Lymphocytes (1.2 - 3.4 /CUMM) 0.7 L Lymphocytes (20.5 - 51.1 %) 1 L Monocytes (1.7 - 9.3 %) 1 L Absolute Monocytes (0.10 - 0.60 /CUMM) 0.8 H Absolute Eosinophils (0.0 - 0.7 /CUMM) 0.1 Absolute Basophils (0.0 - 0.2 /CUMM) 0 Platelet Estimate (ADEQUATE) INCREASED Polychromasia 1+ Hypochromic-Microcytic 2+ Poikilocytosis 1+ Ovalocytes 1+ Other Body Source Fld Total RBCs Counted (%) 100 Impression/Plan Impression/Plan Impression/Plan: General: A, A, NAD Abdomen: Softly distended, tympanitic, appropriately ttp, suprapubic incision c/ d/i with katy in place, Right ileostomy pink/functioning/viable with brown liquid in appliance Extremities: No clubbing, cyanosis or edema This a gentleman with history of previous DVT was on Pradaxa up until 2017, refractory ulcerative colitis, recent laparoscopic total proctocolectomy with ileoanal pouch, diverticular loop ileostomy, postoperative day came into the ICU as he was found to have an incidental large right-sided pneumothorax with extensive subcutaneous emphysema with pneumomediastinum which is slowly improving. Patient was initially treated with a chest tube which is now been removed. His issues include * Recent pneumothorax which is resolved * Pneumomediastinum slowly improving * Small Left-sided effusion which needs to be tapped, if he develops evidence of fever and leukocytosis * Afebrile now off antibiotics * Remote history of right upper extremity DVT was on Pradaxa now stable on subcutaneous heparin * Malnutrition with status post surgery. RECOMMENDATION Cont current meds Management of pneumothorax and pneumomediastinum her cardiothoracic Watch for any signs of sepsis Replace electrolytes, especially potassium, can replace by po Minimize benzodiazepine Continue morphine prn reduce the dose Give one dose of lasix 20 mg po and replace potassium aggresively
[2017-10-05 15:27] VITALS: BP 120/72
[2017-10-05 21:55] VITALS: BP 120/72
[2017-10-06 06:01] VITALS: BP 126/70
--- NOTE | 2017-10-06 07:32 | PN- General Surgery ---
See Addendum Subjective Subjective: No acute overnight events reported. Pt states that he continues to feel right sided chest discomfort but only when ambulating, states that it is less painful than prior to chest tube, denies shortness of breath. Diet was advanced to low residue last night for dinner. Pt did not report any nausea or vomitting, but ileostomy ouptut contained large amounts of undigested food. No reported difficulties voiding. Objective Vital Signs and I&Os Vital Signs Date Time Temp Pulse Resp B/P B/P Pulse O2 O2 Flow FiO2 Mean Ox Delivery Rate 10/06 0601 99.0 97 20 126/70 96 10/05 2155 99.3 97 18 120/72 96 10/05 1527 99.3 97 18 120/72 96 10/05 0800 98 Nasal 1.0L Cannula 10/05 08 97.9 84 18 130/80 98 Nasal 1.0L Cannula Intake & Output 10/06 0800 10/06 0000 10/05 1600 10/05 0800 10/05 0000 10/04 1600 Intake Total 1500.0 1392.5 1678.5 1227.0 1536.0 1927.0 Output Total 1800 2375 2975 1500 1900 1750 Balance -300.0 -982.5 -1296.5 -273.0 -364.0 177.0 Intake, IV 400 380 795 379 445 521 Intake, Lipid 100.0 70.7 69.5 65.0 42.0 33.0 Intake, Oral 400 500 360 871 131 4167 Intake, 600 441.8 454 423 329 293 TPN/PPN Output, Stool 900 1700 1650 600 550 800 Output, Urine 408 510 1310 900 1350 950 Physical Exam: General: Alert and oriented x3, no acute distress Cardiac: RRR, s1s2 Pulm: Non-labored respiratory effort, on room air. Bialteral breath sounds clear to auscultation Abdomen: Non-tender, non-distended. Stoma pink/viable. Ileostomy output remains high. Extremities: Moves all extremities, neurovascular status grossly intact. Bilateral calves soft and non-tender. Assessment/Plan Assessment/Plan This is a 32 yo male who is POD#9 s/p robotic total proctocolectomy, jpouch and ileostomy creation. Hospital course complicated by ptx which required IR chest tube; resolved, and post operative anemia with subsequent transfusion. Diet advanced to lrd last night. Ileostomy output high 10/05-10/06 -Ileostomy output containing lrg amounts of undigested food with high liquid output, recommend continue tpn today, if dc or wean tpn, pt will need fluid repletion, would consider bolus, will discuss with Dr. Brown or Pamela regarding that plan -Recommend PT evaluation today, patient has been deconditioned, would benefit from strengthening exercises and improved ambulation -Continue Incentive Spirometry -Follow up am labs -Continue hep sub q, continue alps, pradaxa has been held -Continue iv protonix -Continue current pain regimen. Will consider switching to exclusive po regimen if ileostomy output slows down Core Measures Venous Thromboembolism VTE Risk Factors No risk factors No Mechanical VTE Prophylaxis d/t N/A MechProphylax Ordered No VTE Pharm Prophylaxis d/t NA PharmProphylax ordered
[2017-10-06 08:04] LABS: ABSOLUTE BASOPHIL COUNT 0 /CUMM (0.0-0.2); ABSOLUTE EOSINOPHIL COUNT 0.1 /CUMM (0.0-0.7); ABSOLUTE GRANULOCYTE CT 8.4 /CUMM (1.4-6.5); ABSOLUTE MONOCYTE COUNT 0.9 /CUMM (0.10-0.60); BASOPHIL % 0.3 % (0.0-2.0); EOSINOPHIL % 0.6 % (0-5); GRANULOCYTE % 81.2 % (42.2-75.2); HEMATOCRIT 33.3 % (42-52); MEAN CORPUSCULAR HGB 27.6 PG (27.0-31.0); MEAN CORPUSCULAR HGB CONC 32.1 G/DL (33.0-37.0); MEAN CORPUSCULAR VOLUME 86.1 FL (80.0-94.0); MEAN PLATELET VOLUME 7.1 FL (7.4-10.4); PLATELET COUNT 516 /CUMM (130-400); RBC DISTRIBUTION WIDTH 14.8 % (11.5-14.5); RED BLOOD CELL CT 3.87 /CUMM (4.70-6.10); WHITE BLOOD CELL COUNT 10.3 /CUMM (4.8-10.8)
[2017-10-06 14:53] VITALS: BP 118/64
[2017-10-06 21:21] VITALS: BP 107/71
[2017-10-07 06:00] VITALS: BP 108/68
--- NOTE | 2017-10-07 07:50 | PN- General Surgery ---
See Addendum Subjective Subjective: Pt in bed with no comaplaints. Tolerated a low residue diet yesterday although he says he is going slow for fear that he may go too fast and need an NGT again. OOB to bathroom but not walking halls yet. PLans to work with physical therapy today. Voiding. Demies fever, CP/SOB, BARRETO, N/V. Objective Vital Signs and I&Os Vital Signs Date Time Temp Pulse Resp B/P B/P Pulse O2 O2 Flow FiO2 Mean Ox Delivery Rate 10/07 0600 98.3 101 20 108/68 96 10/06 2121 99.4 104 20 107/71 96 10/06 1453 98.2 103 20 118/64 96 Room Air Intake & Output 10/07 0800 10/07 0000 10/06 1600 10/06 0800 10/06 0000 10/05 1600 Intake Total 1300.0 1780.0 1780.0 1500.0 1392.5 1678.5 Output Total 1500 1750 1475 1800 2375 2975 Balance -200.0 30.0 305.0 -300.0 -982.5 -1296.5 Intake, IV 600 600 600 400 380 795 Intake, Lipid 100.0 100.0 100.0 100.0 70.7 69.5 Intake, Oral 480 480 400 500 360 Intake, 600 600 600 600 441.8 454 TPN/PPN Number 1 Bowel Movements Output, Stool 600 450 559 852 1754 1650 Output, Urine 900 1300 500 070 936 5182 Physical Exam: gen- NAD resp-clear cardiac- tachy but regular rhythm abd- ND, +BS. soft, mild tenderness around ostomy. Ostomy pink and viable with brown liquid in bag. Ostomy output still high. Incisions clean and dry, katy still in lower abdominla incision, C/D/I with no signs of infection ext- no edema Current Medications: Current Medications Sig/Sienna Start time Last Medication Dose Route Stop Time Status Admin Acetaminophen 650 MG Q4P PRN 10/06 1515 AC 10/06 PO 1516 Cholestyramine Resin 1 PAC DAILY 10/06 0900 AC 10/06 PO 1011 Dextrose/Sodium 1,000 ML Q13H 09/30 1999 AC 10/06 Chloride IV 194 Diphenhydramine HCl 50 MG Q6P PRN 09/27 1545 AC IV Diphenoxylate HCl/ 2.5 MG BID 10/06 0900 AC 10/06 Atropine PO 2203 Fat Emulsion 300 ML 10/06 190 AC 10/06 Intravenous IV 10/07 Fat Emulsion 500 ML Q24H 10/05 190 DC 10/05 Intravenous IV 10/06 Heparin Sodium 5,000 UNIT Q8 09/28 0745 AC 10/07 (Porcine) SC 0655 Lorazepam 0.5 MG Q4P PRN 10/01 001 AC 10/02 IV 2304 Meclizine HCl 12.5 MG TID PRN 09/27 181 AC 09/27 PO 2013 Morphine Sulfate 2 MG Q2-3 HRS PRN 10/01 14 AC 10/05 IV 181 Morphine Sulfate 4 MG Q2-3 HRS NEEDED.. 09/29 0800 DC 10/04 IV 0807 Ondansetron HCl 4 MG Q6P PRN 10/01 001 AC 10/01 IV 0018 Pantoprazole Sodium 40 MG DAILY 09/27 1537 AC 10/06 IV 1012 Phenol 2 SPRAY Q2P PRN 10/01 14 AC EXT Sodium Chloride 500 ML BOLUS ONE 10/07 0745 AC IV 10/07 0844 Total Parenteral 1 UNIT 10/06 AC 10/06 Nutrition IV 10/07 Results Last 48 Hours of Labs: Laboratory Tests 10/06 0600 Chemistry Sodium (137 - 145 mmol/L) 137 Potassium (3.5 - 5.1 mmol/L) 4.4 Chloride (98 - 107 mmol/L) 100 Carbon Dioxide (22 - 30 mmol/L) 30 Anion Gap (5 - 16) 7 BUN (9 - 20 mg/dL) 7 L Creatinine (0.7 - 1.2 mg/dL) 0.4 L Estimated GFR (>60 ml/min) > 60 BUN/Creatinine Ratio (7 - 25 %) 17.5 Phosphorus (2.5 - 4.5 mg/dL) 4.4 Magnesium (1.6 - 2.3 mg/dL) 2.0 Hematology CBC w Diff NO MAN DIFF REQ WBC (4.8 - 10.8 /CUMM) 10.3 RBC (4.70 - 6.10 /CUMM) 3.87 L Hgb (14.0 - 18.0 G/DL) 10.7 L Hct (42 - 52 %) 33.3 L MCV (80.0 - 94.0 FL) 86.1 MCH (27.0 - 31.0 PG) 27.6 MCHC (33.0 - 37.0 G/DL) 32.1 L RDW (11.5 - 14.5 %) 14.8 H Plt Count (130 - 400 /CUMM) 516 H MPV (7.4 - 10.4 FL) 7.1 L Gran % (42.2 - 75.2 %) 81.2 H Lymphocytes % (20.5 - 51.1 %) 9.5 L Monocytes % (1.7 - 9.3 %) 8.4 Eosinophils % (0 - 5 %) 0.6 Basophils % (0.0 - 2.0 %) 0.3 Absolute Granulocytes (1.4 - 6.5 /CUMM) 8.4 H Absolute Lymphocytes (1.2 - 3.4 /CUMM) 1.0 L Absolute Monocytes (0.10 - 0.60 /CUMM) 0.9 H Absolute Eosinophils (0.0 - 0.7 /CUMM) 0.1 Absolute Basophils (0.0 - 0.2 /CUMM) 0 Assessment/Plan Assessment/Plan This is a 32 yo male who is POD#9 s/p robotic total proctocolectomy, jpouch and diverting loop ileostomy creation. Hospital course complicated by ptx which required IR chest tube; resolved, and post operative anemia with subsequent transfusion. Tolerating low residue diet, TPN at 75cc/h. Ileostomy output high. Tachycardiac with negative I/Os -Ileostomy output containing lrg amounts of undigested food with high liquid output, will likely wean tpn today, awaiting AM labs. Will give 500ml bolus and encourage increased PO intake as pt says he was holding back drinking fluids bc he knew he was getting IVF. Will discuss with Dr. Santaigo -Physical therapy today, patient has been deconditioned, would benefit from strengthening exercises and improved ambulation -Continue Incentive Spirometry -Follow up am labs -Continue hep sub q, continue alps, pradaxa has been held -Continue iv protonix -Continue current pain regimen. Will consider switching to exclusive po regimen if ileostomy output slows down Core Measures Venous Thromboembolism VTE Risk Factors No risk factors No Mechanical VTE Prophylaxis d/t N/A MechProphylax Ordered No VTE Pharm Prophylaxis d/t NA PharmProphylax ordered
[2017-10-07 09:19] VITALS: BP 110/70
[2017-10-07 10:56] LABS: ABSOLUTE BASOPHIL COUNT 0 /CUMM (0.0-0.2); ABSOLUTE EOSINOPHIL COUNT 0.1 /CUMM (0.0-0.7); ABSOLUTE GRANULOCYTE CT 9.3 /CUMM (1.4-6.5); ABSOLUTE LYMPH COUNT 1.1 /CUMM (1.2-3.4); BASOPHIL % 0.4 % (0.0-2.0); EOSINOPHIL % 0.6 % (0-5); GRANULOCYTE % 80.4 % (42.2-75.2); HEMATOCRIT 36.4 % (42-52); MEAN CORPUSCULAR HGB 27.4 PG (27.0-31.0); MEAN CORPUSCULAR HGB CONC 31.6 G/DL (33.0-37.0); MEAN CORPUSCULAR VOLUME 86.8 FL (80.0-94.0); MEAN PLATELET VOLUME 7.5 FL (7.4-10.4); PLATELET COUNT 566 /CUMM (130-400); RBC DISTRIBUTION WIDTH 15.7 % (11.5-14.5); WHITE BLOOD CELL COUNT 11.6 /CUMM (4.8-10.8)
[2017-10-07 14:06] VITALS: BP 134/80
[2017-10-07 22:00] VITALS: BP 122/72
[2017-10-08 05:54] VITALS: BP 122/64
--- NOTE | 2017-10-08 07:08 | PN- General Surgery ---
See Addendum Subjective Subjective: Patient doing well this morning. Has been ambulating and voiding without any difficulety. Pain is controlled and he has been off of analgesia for approximately 4 days. Tolerating low residue diet. No other issues or complaints. Objective Vital Signs and I&Os Vital Signs Date Time Temp Pulse Resp B/P B/P Pulse O2 O2 Flow FiO2 Mean Ox Delivery Rate 10/08 0554 97.9 100 22 122/64 97 Room Air 10/07 2200 98.9 101 18 122/72 97 Room Air 10/07 1406 98.1 74 18 134/80 96 Room Air 10/07 0919 98 22 110/70 95 Room Air Intake & Output 10/08 0800 10/08 0000 10/07 1600 10/07 0810/07 0000 10/06 1600 Intake Total 6956 199 0882.0 1300.0 1780.0 1780.0 Output Total 900 1560 2825 1500 1750 1475 Balance 580 -705 25.0 -200.0 30.0 305.0 Intake, IV 2091 428 1644 600 600 600 Intake, Lipid 100.0 100.0 100.0 100.0 Intake, Oral 149 736 2621 480 480 Intake, 400 600 600 600 TPN/PPN Number 0 1 Bowel Movements Output, Stool 500 410 475 600 450 975 Output, Urine 400 1150 2350 900 1300 500 Physical Exam: General: A, A, NAD Abdomen: Soft, non distended, appropriately ttp, suprapubic incision c/d/i with katy in place, Right ileostomy pink/functioning/viable with brown liquid in appliance Extremities: No clubbing, cyanosis or edema Current Medications: Current Medications Sig/Sienna Start time Last Medication Dose Route Stop Time Status Admin Acetaminophen 650 MG Q4P PRN 10/06 1515 AC 10/06 PO 1516 Cholestyramine Resin 1 PAC BID 10/07 0900 AC 10/07 PO 2110 Cholestyramine Resin 1 PAC DAILY 10/06 0900 DC 10/06 PO 1011 Dextrose/Sodium 1,000 ML Q8H 10/07 1030 AC 10/08 Chloride IV 0159 Dextrose/Sodium 1,000 ML Q13H 09/29 2000 DC 10/07 Chloride IV 0917 Diphenhydramine HCl 50 MG Q6P PRN 09/27 1545 AC IV Diphenoxylate HCl/ 2.5 MG TID 10/07 09 AC 10/07 Atropine PO 2110 Diphenoxylate HCl/ 2.5 MG BID 10/06 09 DC 10/06 Atropine PO 220 Fat Emulsion 300 ML 10/06 190 DC 10/06 Intravenous IV 10/07 Heparin Sodium 5,000 UNIT Q8 09/28 0745 AC 10/08 (Porcine) SC 05 Lorazepam 0.5 MG Q4P PRN 10/01 14 DC 10/02 IV 230 Meclizine HCl 12.5 MG TID PRN 09/27 181 AC 09/27 PO 2013 Morphine Sulfate 2 MG Q2-3 HRS PRN 10/01 001 DC 10/05 IV 181 Ondansetron HCl 4 MG Q6P PRN 10/01 001 10/01 IV 0018 Pantoprazole Sodium 40 MG DAILY 09/27 1537 AC 10/07 IV 0907 Patient Medication 1 ED ONE ONE 10/07 1500 DC 10/07 Teaching ED 10/07 1501 1748 Phenol 2 SPRAY Q2P PRN 10/01 001 AC EXT Sodium Chloride 500 ML BOLUS ONE 10/07 0745 DC 10/07 IV 10/07 0844 0746 Total Parenteral 1 UNIT 10/06 DC 10/06 Nutrition IV 10/07 Results Last 48 Hours of Labs: Laboratory Tests 10/07 0505 Chemistry Sodium (137 - 145 mmol/L) 139 Potassium (3.5 - 5.1 mmol/L) 4.6 Chloride (98 - 107 mmol/L) 102 Carbon Dioxide (22 - 30 mmol/L) 27 Anion Gap (5 - 16) 10 BUN (9 - 20 mg/dL) 8 L Creatinine (0.7 - 1.2 mg/dL) 0.4 L Estimated GFR (>60 ml/min) > 60 BUN/Creatinine Ratio (7 - 25 %) 20.0 Phosphorus (2.5 - 4.5 mg/dL) 5.0 H Magnesium (1.6 - 2.3 mg/dL) 2.0 Hematology CBC w Diff NO MAN DIFF REQ WBC (4.8 - 10.8 /CUMM) 11.6 H RBC (4.70 - 6.10 /CUMM) 4.20 L Hgb (14.0 - 18.0 G/DL) 11.5 L Hct (42 - 52 %) 36.4 L MCV (80.0 - 94.0 FL) 86.8 MCH (27.0 - 31.0 PG) 27.4 MCHC (33.0 - 37.0 G/DL) 31.6 L RDW (11.5 - 14.5 %) 15.7 H Plt Count (130 - 400 /CUMM) 566 H MPV (7.4 - 10.4 FL) 7.5 Gran % (42.2 - 75.2 %) 80.4 H Lymphocytes % (20.5 - 51.1 %) 9.7 L Monocytes % (1.7 - 9.3 %) 8.9 Eosinophils % (0 - 5 %) 0.6 Basophils % (0.0 - 2.0 %) 0.4 Absolute Granulocytes (1.4 - 6.5 /CUMM) 9.3 H Absolute Lymphocytes (1.2 - 3.4 /CUMM) 1.1 L Absolute Monocytes (0.10 - 0.60 /CUMM) 1.0 H Absolute Eosinophils (0.0 - 0.7 /CUMM) 0.1 Absolute Basophils (0.0 - 0.2 /CUMM) 0 Assessment/Plan Assessment/Plan This is a 32 yo male who is POD#11 s/p robotic total proctocolectomy, jpouch and ileostomy creation. Hospital course complicated by ptx which required IR chest tube; resolved, post operative anemia with subsequent transfusion; resolved, now with high ostomy outputs. Otherwise clinically doing well. Ambulate Pain Control GI/DVT Px Monitor tachycardia/fluid balance status Continue Low Residue diet Continue Questran/Lomotil for high ostomy output, may need to increase dosing IS/Turn, Cough, Deep breathe Ostomy care/teaching Pradaxa on hold for PE hx, on heparin sub Q D/C katy in two days Will d/w Dr. Santiago Core Measures Venous Thromboembolism VTE Risk Factors No risk factors No Mechanical VTE Prophylaxis d/t N/A MechProphylax Ordered No VTE Pharm Prophylaxis d/t NA PharmProphylax ordered
[2017-10-08 14:21] VITALS: BP 114/60
[2017-10-08 21:16] VITALS: BP 112/64
[2017-10-09 06:53] VITALS: BP 100/62
--- NOTE | 2017-10-09 07:17 | PN- General Surgery ---
Subjective Subjective: feeling ok, [place] reg diet, no n/v, no cp/sob, appliance leaked overnight, +oob, + voids. wants to dc home today Objective Vital Signs and I&Os Vital Signs Date Time Temp Pulse Resp B/P B/P Pulse O2 O2 Flow FiO2 Mean Ox Delivery Rate 10/09 0653 98.2 101 18 100/62 97 10/08 2116 99.5 115 18 112/64 96 Room Air 10/08 1421 98.7 84 18 114/60 98 Room Air Intake & Output 10/09 0800 10/09 0000 10/08 1600 10/08 0800 10/08 0000 10/07 1600 Intake Total 720 1425 1720 5531 817 3001.0 Output Total 450 1200 2175 900 1560 2825 Balance 270 225 -455 580 -705 25.0 Intake, IV 758 251 8367 1829 575 1937 Intake, Lipid 100.0 Intake, Oral 120 900 720 895 244 6769 Intake, 400 TPN/PPN Number 2 0 Bowel Movements Output, Stool 450 450 925 500 410 475 Output, Urine 750 1690 663 8651 2350 Physical Exam: gen- nad card- s1s2 pulm- ctab abd- stoma pink, ilda in place, chunky stool in bag. bag removed and changed, skin surrounding stoma pink and tender but intact. katy dc'ed, steris placed. abd soft nt. +bs ext- clves soft nt bl Current Medications: Current Medications Sig/Sienna Start time Last Medication Dose Route Stop Time Status Admin Acetaminophen 650 MG Q4P PRN 10/06 1515 AC 10/06 PO 1516 Cholestyramine Resin 1 PAC TID 10/08 1400 AC 10/08 PO 2046 Cholestyramine Resin 1 PAC BID 10/07 0900 DC 05 PO 0804 Dextrose/Sodium 1,000 ML Q13H 10/08 1515 DC 05/15 Chloride IV 1804 Dextrose/Sodium 1,000 ML Q8H 10/07 1030 DC 05/15 Chloride IV 1012 Diphenhydramine HCl 50 MG Q6P PRN 0504 1545 AC IV Diphenoxylate HCl/ 5 MG TID 10/08 1400 AC 0515 Atropine PO 2045 Diphenoxylate HCl/ 2.5 MG TID 10/07 0900 DC 05 Atropine PO 0804 Heparin Sodium 5,000 UNIT Q8 09/28 0745 AC 10/08 (Porcine) SC 2043 Meclizine HCl 12.5 MG TID PRN 09/27 181 AC 09/27 PO 2012 Ondansetron HCl 4 MG Q6P PRN 10/01 0015 AC 10/01 IV 0018 Pantoprazole Sodium 40 MG DAILY 09/27 1537 DC 10/08 IV 0805 Phenol 2 SPRAY Q2P PRN 10/01 0015 AC EXT Results Last 48 Hours of Labs: Lytes pending Assessment/Plan Assessment/Plan A- POD12 sp robo total proctocolectomy/jpouch/dli, with continued high illeostomy output (1800cc over last 24hrs), on various antidiarrheals, otherwise stable. P- lomotil 5mg tid questran tid immodium 1 tab tid labs pending- can dc home if lytes ok hl reg diet i&os hep sq can restart pradaxa tomorrow d/w Dr. Santiago Core Measures Venous Thromboembolism VTE Risk Factors No risk factors No Mechanical VTE Prophylaxis d/t N/A MechProphylax Ordered No VTE Pharm Prophylaxis d/t NA PharmProphylax ordered
[2017-10-09] MEDS ORDERED: DIPHENOXYLATE-1 EACH PO (08:01)
[2017-10-09] MEDS ORDERED: LOPERAMIDE2 M2 PO (08:01)
[2017-10-09] MEDS ORDERED: CHOLESTYRAMINE L4 GM PO (08:01)
== END 2017-10-09 13:30 | DRG 330 ==
LOC: SDA 01:44 → 2NA 01:44 → ENRESERV 16:28 → ENTRNSPT 18:34 → EDTRNSPTSTS 18:39 → EDTRNSPT 18:39 → 2NA 18:44 → CMPTRNSPT 19:00 → ENTRNSPT 19:12 → 2NA 20:56 → CRI 09-29 20:43 → ENTRNSPT 10-05 14:05 → EDTRNSPT 10-05 14:35 → EDTRNSPTSTS 10-05 14:35 → 2NB 10-05 14:53 → CMPTRNSPT 10-05 14:59 → ENPENDDIS 10-09 12:39 → ENTRNSPT 10-09 13:23 → EDTRNSPT 10-09 13:27 → EDTRNSPTSTS 10-09 13:27 → 2NB 10-09 13:30 → CMPTRNSPT 10-09 13:47
PROVIDERS: Colon & Rectal Surgery; Nurse Practitioner; Physician Assistant; Physician Assistant Surgical; Student in an Organized Health Care Education/Training Program
PROC: 0D1B4ZQ Bypass Ileum to Anus, Percutaneous Endoscopic Approach (ICD-10-PCS; principal; 2017-09-27)
PROC: 3E0T3BZ Introduction of Anesthetic Agent into Peripheral Nerves and Plexi, Percutaneous Approach (ICD-10-PCS; principal; 2017-09-27)
PROC: 0DTE4ZZ Resection of Large Intestine, Percutaneous Endoscopic Approach (ICD-10-PCS; principal; 2017-09-27)
PROC: 8E0W3CZ Robotic Assisted Procedure of Trunk Region, Percutaneous Approach (ICD-10-PCS; principal; 2017-09-27)
PROC: 0W9930Z Drainage of Right Pleural Cavity with Drainage Device, Percutaneous Approach (ICD-10-PCS; 2017-09-30)
PROC: 30233N1 Transfusion of Nonautologous Red Blood Cells into Peripheral Vein, Percutaneous Approach (ICD-10-PCS; 2017-10-03)
PROC: 02H633Z Insertion of Infusion Device into Right Atrium, Percutaneous Approach (ICD-10-PCS; 2017-10-03)
DX: K51.80 Other ulcerative colitis without complications (principal); J95.811 Postprocedural pneumothorax; J90 Pleural effusion, not elsewhere classified; K91.2 Postsurgical malabsorption, not elsewhere classified; I97.89 Other postprocedural complications and disorders of the circulatory system, not elsewhere classified; E86.0 Dehydration; Z79.01 Long term (current) use of anticoagulants; Z79.52 Long term (current) use of systemic steroids; Z87.891 Personal history of nicotine dependence; Y83.2 Surgical operation with anastomosis, bypass or graft as the cause of abnormal reaction of the patient, or of later complication, without mention of misadventure at the time of the procedure; Y92.239 Unspecified place in hospital as the place of occurrence of the external cause; Z86.718 Personal history of other venous thrombosis and embolism; K94.10 Enterostomy complication, unspecified; R00.0 Tachycardia, unspecified; T81.82XA Emphysema (subcutaneous) resulting from a procedure, initial encounter
CPT/HCPCS: 2NAP; CCU; 36415; 36592; 71045; 74018; 74177; 77012; 81001; 82436; 86920; 87040; 87070; 87086; 93005; 93010; 97110-GO; 97116-GO; 97161-GP; 97530-GO; C1769; C9290; C9399; J0131; J0610; J0690; J1200; J1644; J1720; J1885; J1940; J2001; J2060; J2405; J7040; J7042; J7120; P9016

== ENCOUNTER 2018-01-01 02:49 | Inpatient (IN) | payer OTHER ==
[~2018-01-01] VITALS: Ht 177.8 cm; Wt 57.7 kg
[~2018-01-01 02:49] MED LIST changes: +ACETAMINOPHEN500 M4 PO; +CHOLESTYRAMINE L4 GM PO; +DIPHENOXYLATE-1 EACH PO; +LOMOTIL 2.5-0.1 EACH PO; +LOPERAMIDE2 M2 PO
--- NOTE | 2018-01-01 09:40 | Operative Report ---
Operative/Inv Procedure Report Surgery Date: 01/01/18 Name of Procedure: Open reversal of ileostomy with partial bowel resection Pre-Operative Diagnosis: Diverting ileostomy Post-Operative Diagnosis: Diverting ileostomy Estimated Blood Loss: less than 50ml Surgeon/Farmworker Vegetable: Kilo Santiago Jr., DO Anesthesia: general endotracheal tube, block Monitors: Per routine IV Fluids: Refer to anesthesia record Urine Output: Refer to anesthesia record Drains: Moreland drain in subcutaneous space Specimens: Ileostomy Complications: None Condition: Good Operative Indication: This is a 32-year-old gentleman who status post robotic total proctocolectomy with ileoanal J-pouch for ulcerative colitis refractory to medical therapy. He had diverting loop ileostomy performed at time of his initial operation. Patient has since recovered from his last operation and ileal J-pouch has been checked by both flex sig and Gastrografin enema. All suture lines appear intact without evidence of leak, he was scheduled for reversal of his loop ileostomy Operative/Procedure Note Note: On the day before his operation the patient did a bowel prep which only included clear liquid diet with oral antibiotics. On the morning of his surgery patient drink 12 ounces of apple juice prior to coming to the hospital in accordance with our ERAS protocol. In the holding area he received the typical premedications and was taken to the operating room. Was placed in the supine position on the operating room table and underwent induction of general anesthesia placement of endotracheal tube and Joseph catheter. Bilateral TAP blocks were performed by the anesthesia department. The abdomen was prepped and draped in usual fashion. An elliptical incision was performed around the ileostomy and taken down to the fascia. The bowel was freed from the fascial attachments. At this point is able to pull up a good amount of bowel for anastomosis. 2 mesenteric windows were made on either side of the exposed bowel. ALISIA stapler was used to transect the bowel approximately 2-3 cm from the stoma orifice. The mesentery intervening was divided with the LigaSure. A [id number] anastomosis was performed using a blue ALISIA 80 stapler. The 2 antimesenteric portions of the bowel were aligned. 2 enterotomies were intensely created by excising the corners of the staple line. One arm of the stapling device was placed on each limb of the bowel. The stapler was closed making sure to not pinch the mesentery. Stapler was fired open and retrieved. The lumen of the bowel was inspected and appeared pink without bleeding at the staple line. The edges of the enterotomy were approximated with Allis clamps and then a TA 60 stapler was used to close the enterotomy. Anti-tension sutures were placed in the crotch of the staple line. The mesenteric defect was closed with interrupted 3-0 Vicryl sutures. The bowel was reduced back into the abdominal cavity. The fascial edge was exposed around the entire circumference of the incision. The fascia was closed with a running 0 PDS suture transverse fashion. Next the subcu tissues were pulse lavaged with sterile saline. A Moreland drain was placed in the base of the wound and brought out through a separate stab incision. The Polo was secured to the skin with a 3-0 nylon. The skin was then closed in layers. A deep dermal interrupted layer was performed with 2-0 Vicryl. The surface of the skin was closed with interrupted 3-0 nylon in a vertical mattress fashion. Next the abdomen was cleansed and dried. Bacitracin ointment and sterile dressings were placed. The patient was extubated in the operating room. He tolerated the procedure well and was taken to recovery area in good condition.. At the end of the operation all needle sponges and instruments were accounted for. Findings: Riom-pf-hekr functional end-to-end anastomosis performed with ALISIA 80 mm blue loaded cartridge Discharge Disposition: PACU
[2018-01-01 11:18] VITALS: BP 110/70
--- NOTE | 2018-01-01 11:59 | PN- General Surgery ---
Subjective Subjective: Post op check: Complaining of thirst, otherwise well. Specifically denies nausea and vomitting. Denies chest pain and shortness of breath. Has yet to ambulate. Has yet to void. Objective Vital Signs and I&Os Intake & Output 01/01 1600 01/01 0800 01/01 0000 12/31 1600 12/31 0800 12/31 0000 Intake Total Output Total Balance Patient 127 lb 125 lb Weight Weight Bed scale Measurement Method BP: 110/70 HR: 62 RR:16 T: 97.6 O2:99 on room air Physical Exam: General: Alert and oriented x3, no acute distress Cardiac: RRR, s1s2 Pulm: CTA, non-labored respiratory effort Abdomen: Soft, non-distended, dressings dry and intact, appropriate leela- incisional tenderness Extremities: Moves all extremties, distal sensation grossly intact. Bilateral calves soft and non-tender Assessment/Plan Assessment/Plan This is a 32 year old male, POD 0, s/p ileostomy reversal, on ERAS protocol -Clear liquid diet -IV fluids at 50/hr -limit narcotic, no nsaid due to allergy -OOB -Incentive spirometry encouraged -entereg bid until bowel function returns -f/u am labs -okay to chew sugarfree gum post op will discuss plan of care with Dr. Santiago Core Measures Venous Thromboembolism VTE Risk Factors Surgery No Mechanical VTE Prophylaxis d/t N/A MechProphylax Ordered No VTE Pharm Prophylaxis d/t NA PharmProphylax ordered
--- NOTE | 2018-01-01 14:38 | Admission Core Measures ---
Acute Coronary Syndrome (CM) ACS Core Measures Acute Coronary Syndrome Diagnosis No Congestive Heart Failure (NEW) CHF Core Measures Congestive Heart Failure Diagnosis No Cerebrovascular Accident CVA Core Measures CVA/TIA Diagnosis No Venous Thromboembolism VTE Core Sonia (View Protocol) VTE Risk Factors Surgery No Mechanical VTE Prophylaxis d/t N/A MechProphylax Ordered No VTE Pharm Prophylaxis d/t NA PharmProphylax ordered Problem List As ranked by this Provider includes Assessment & Plan 1. S/P total colectomy 2. Ulcerative colitis 3. Ileostomy present HOME MEDS Home Med List Acetaminophen (Unknown Strength) TABLET 1 TAB PO PRN PAIN (Reported) Dabigatran Etexilate Mesylate (Pradaxa 150 MG) 150 MG CAPSULE 1 CAP PO BID ANTICOAGULANT (Reported) Diphenoxylate HCl/Atropine (Lomotil 2.5-0.025 MG Tablet) 2.5 MG-0.025 MG TABLET 2 TAB PO AD PRN DIARRHEA (Reported) Multiple Vitamin (Multivitamins) 1 EACH TABLET 1 TAB PO DAILY SUPPLEMENT ( Reported)
[2018-01-01 14:50] VITALS: BP 110/62
--- NOTE | 2018-01-01 18:14 | Surgical Discharge Summary ---
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 Home Who Do You Live With? Patient/Self Services at Home: None What is Your Primary Language? Turkish Review of Systems: See H&P Hospital Course Course Attending Physician: Kilo Santiago Jr., DO Primary Care Physician: Abilio SHRESTHA,[facility] Course: Jon underwent an elective open reversal of ileostomy with partial bowel resection due to diverting ileostomy. He tolerated the procedure well. He was placed on ERAS protocol. Diet was advanced and tolerated with return of bowel function. Polo removed prior to discharge. Throughout hospital course, vital signs remained stable and within normal limits, pain adequately controlled and he was deemed appropriate for discharge. Allergies: Coded Allergies: ketorolac (From TORADOL) (chest pain 12/31/17) Significant Procedures: Open reversal of ileostomy with partial bowel resection on 01/01/18 Disposition Summary Disposition Principal Diagnosis: Diverting ileostomy, scheduled closure Additional Diagnosis: None Discharge Disposition: home or self care Discharge Instructions General Discharge Information Code Status: Full Code Patient's Diet: Advance as tolerated Patient's Activity: As tolerated, avoid strenuous activities Follow-Up Instructions/Appts: Follow up with Dr. Santiago in 1-2 weeks from date of surgery Medications at Discharge Discharge Medications: Continue taking these medications: Multiple Vitamin (Multivitamins) 1 EACH TABLET 1 Tablet ORAL DAILY Comments: NOT GIVEN IN HOSPITAL Dabigatran Etexilate Mesylate (Pradaxa 150 MG) 150 MG CAPSULE 1 Capsule ORAL TWICE DAILY Comments: NOT GIVEN IN HOSPITAL Diphenoxylate HCl/Atropine (Lomotil 2.5-0.025 MG Tablet) 2.5 MG-0.025 MG TABLET 2 Tablet ORAL As Directed as needed for DIARRHEA Acetaminophen (Acetaminophen) (Unknown Strength) TABLET 1 Tablet ORAL as needed for PAIN Start taking the following new medications: Tramadol HCl (Ultram) 50 MG TABLET 1-2 Tablet ORAL EVERY 4-6 HOURS NEEDED as needed for PAIN Qty = 30 No Refills Oxycodone HCl (Roxicodone) 5 MG TABLET 1-2 Tablet ORAL EVERY 4-6 HOURS NEEDED as needed for PAIN Qty = 15 No Refills
--- NOTE | 2018-01-01 18:19 | Patient Discharge Instructions ---
Discharge Instructions General Discharge Information You were seen/treated for: Ileostomy, scheduled closure You had these procedures: Closure ileostomy Watch for these problems: Fever greater than 101.3 Worsening redness/drainage from incision Inability to urinate or move bowels Persistant nausea or vomitting Do not soak the wound: Yes No bath, but you may shower: Yes Other wound care: Keep wound clean and dry Special Instructions: Resume pradaxa tonight. Diet Continue normal diet: No Recommended Diet: Low Residue Additional DIET Information: Advance slowly as tolerated Activity Full Activity/No Limits: No Activity Self Limited: Yes Pounds, do NOT lift more than: 10 Acute Coronary Syndrome Inclusion Criteria At DC or during hospital stay patient has or had the following: ACS DIAGNOSIS No Discharge Core Measures Meds if any: Prescribed or Continued at Discharge Meds if any: NOT Prescribed or Continued at Discharge Congestive Heart Failure Inclusion Criteria At DC or during hospital stay patient has or had the following: CHF DIAGNOSIS No Discharge Core Measures Meds if any: Prescribed or Continued at Discharge Meds if any: NOT Prescribed or Continued at Discharge Cerebrovascular accident Inclusion Criteria At DC or during hospital stay patient has or had the following: CVA/TIA Diagnosis No Discharge Core Measures Meds if any: Prescribed or Continued at Discharge Meds if any: NOT Prescribed or Continued at Discharge Venous thromboembolism Inclusion Criteria VTE Diagnosis No VTE Type NONE VTE Confirmed by (Test) NONE Discharge Core Measures - Per Current guidelines, there needs to be overlap - treatment for the first 5 days of Warfarin therapy. - If discharged on Warfarin prior to 5 days of - overlap therapy, the patient will need to be - assessed for post discharge needs including - *Post discharge parental anticoagulation - *Warfarin and/or parental anticoagulation education - *Follow up date to check INR post discharge At least 5 days overlap therapy as Inpatient No Meds if any: Prescribed or Continued at Discharge Note: Overlap Therapy is Warfarin and Anticoagulant Meds if any: NOT Prescribed or Continued at Discharge
[2018-01-01 20:01] VITALS: BP 100/62
[2018-01-02 06:22] VITALS: BP 120/80
--- NOTE | 2018-01-02 07:23 | PN- General Surgery ---
See Addendum Subjective Subjective: pt in bed, complains of more abdominal pain today, says he didnt take any Ultram yesterday bc almost no pain and now thinks he "got behind" on his pain medications. No flatus, tolerating clears, no nausea. Voiding, ambulating. deneis CP/SOB Objective Vital Signs and I&Os Vital Signs Date Time Temp Pulse Resp B/P B/P Pulse O2 O2 Flow FiO2 Mean Ox Delivery Rate 01/02 622 97.8 54 48 120/80 96 01/01 2001 98.0 58 16 100/62 99 Room Air 01/01 1450 97.6 64 22 110/62 95 Room Air 01/01 1118 97.6 62 16 110/70 96 Room Air 01/01 1118 97.6 62 16 110/70 96 Room Air Intake & Output 01/02 0800 / 0000 01/01 1600 01/01 0800 01/01 0000 12/31 1600 Intake Total 640 1200 510 Output Total 600 1200 0 Balance 40 0 510 Intake, IV 400 450 150 Intake, Oral 240 750 360 Number 0 0 Bowel Movements Output, Urine 600 1200 0 Patient 127 lb 125 lb Weight Weight Bed scale Measurement Method Physical Exam: gen- NAD resp- clear cardiac- RRR abd- flat, decreased BS, soft, tender ext- warm and dry, no calf tenderness Assessment/Plan Assessment/Plan This is a 32 year old male, POD 1, s/p ileostomy reversal, on ERAS protocol -Advance to full liquids -DC IV fluids -limit narcotic, no nsaid due to allergy -OOB -Incentive spirometry encouraged -entereg bid until bowel function returns -f/u am labs -okay to chew sugarfree gum post op -dvt ppx- hsq will discuss plan of care with Dr. Santiago Core Measures Venous Thromboembolism VTE Risk Factors Surgery No Mechanical VTE Prophylaxis d/t N/A MechProphylax Ordered No VTE Pharm Prophylaxis d/t NA PharmProphylax ordered
[2018-01-02 08:03] LABS: ABSOLUTE BASOPHIL COUNT 0 /CUMM (0.0-0.2); ABSOLUTE EOSINOPHIL COUNT 0 /CUMM (0.0-0.7); ABSOLUTE GRANULOCYTE CT 10.3 /CUMM (1.4-6.5); ABSOLUTE MONOCYTE COUNT 1.1 /CUMM (0.10-0.60); BASOPHIL % 0 % (0.0-2.0); EOSINOPHIL % 0 % (0-5); HEMATOCRIT 39.6 % (42-52); MEAN CORPUSCULAR HGB 27.5 PG (27.0-31.0); MEAN CORPUSCULAR HGB CONC 33.2 G/DL (33.0-37.0); MEAN PLATELET VOLUME 8.1 FL (7.4-10.4); PLATELET COUNT 292 /CUMM (130-400); RED BLOOD CELL CT 4.77 /CUMM (4.70-6.10); WHITE BLOOD CELL COUNT 12.4 /CUMM (4.8-10.8)
[2018-01-02 09:23] LABS: GRANULOCYTE % 83.1 % (42.2-75.2)
[2018-01-02 10:10] VITALS: BP 128/80
[2018-01-02 14:00] VITALS: BP 118/64
[2018-01-02 22:19] VITALS: BP 104/60
[2018-01-03 06:49] VITALS: BP 108/74
--- NOTE | 2018-01-03 07:05 | PN- General Surgery ---
Subjective Subjective: Patient reports pain controlled with ultram. He reports mild right sided pain and right shoulder pain. He is tolerating fulls without nausea or vomiting and reports multiple bms yesterday, which are becoming normal in nature. Denies fever, chills, chest pain or sob. Objective Vital Signs and I&Os Vital Signs Date Time Temp Pulse Resp B/P B/P Pulse O2 O2 Flow FiO2 Mean Ox Delivery Rate 01/03 0649 97.6 66 20 108/74 99 Room Air 01/02 2219 97.7 83 18 104/60 98 Room Air 01/02 1400 97.6 70 20 118/64 97 Room Air 01/02 1010 98.0 62 20 128/80 100 Room Air Intake & Output 01/03 0000 01/02 1600 01/02 0801/02 0000 01/01 1600 Intake Total 591 440 9006 640 1200 510 Output Total 600 124 571 6246 0 Balance 240 -100 365 40 0 510 Intake, IV 50 400 450 150 Intake, Oral 813 572 2169 240 750 360 Number 2 0 0 Bowel Movements Output, Urine 600 408 872 1249 0 Patient 127 lb 127 lb Weight Weight Bed scale Measurement Method Physical Exam: Gen - resting comfortably in nad Cardiac - S1S2 noted Lungs - CTAB Abd - soft, mildly distended, dressing c/d/i, bowel sounds presents, appropriately tender leela-incisionally, no rebound or guarding noted Ext - no edema or calf pain Current Medications: Current Medications Sig/Sienna Start time Last Medication Dose Route Stop Time Status Admin Acetaminophen 1,000 MG TID 01/02 900 AC 01/02 PO 2118 Acetaminophen 1,000 MG Q6H 01/01 2000 DC 01/02 IV 0753 Alvimopan 12 MG BID 01/01 2100 DC 01/02 PO 0800 Gabapentin 100 MG TID 01/01 1400 AC 01/02 PO 2118 Heparin Sodium 5,000 UNIT Q8 01/01 1400 AC 01/03 (Porcine) SC 0514 Lactated Ringer's 1,000 ML .Q20H 01/01 1000 DC 01/02 IV 0510 Ondansetron HCl 4 MG Q6P PRN 01/01 1000 AC 01/01 IV 1312 Oxycodone HCl 5 MG Q4-6 PRN PRN 01/02 0930 AC 01/02 PO 1049 Oxycodone HCl 10 MG Q4-6 PRN PRN 01/02 0930 AC PO Patient Medication 1 ED ONE ONE 01/02 1115 DC 01/02 Teaching ED 01/02 1116 1112 Tramadol HCl 50 MG Q4 PRN 01/01 1000 AC 01/03 PO 0518 Tramadol HCl 100 MG Q4-6 PRN PRN 01/01 1000 AC PO Assessment/Plan Assessment/Plan 32 M POD 2 s/p open reversal of ileostomy with partial bowel resection due to diverting ileostomy, recovering well Advance to low fiber diet Pain regimen prn ERAS protocol DVT ppx - hsq Pradaxa on hold Ambulate oob Encourage IS Anticipate d/c within 24-48 hours Will d/w Dr. Santiago Core Measures Venous Thromboembolism VTE Risk Factors Surgery No Mechanical VTE Prophylaxis d/t N/A MechProphylax Ordered No VTE Pharm Prophylaxis d/t NA PharmProphylax ordered
[2018-01-03] MEDS ORDERED: ULTRAM50 M1 PO (07:10)
[2018-01-03] MEDS ORDERED: ROXICODONE5 M1 PO (07:56)
--- NOTE | 2018-01-03 07:56 | PN- General Surgery ---
Surgical Brief Attending Note Brief Attending Note: Patient postop day 2 from ileostomy reversal Having bowel function Pain reasonably controlled Discharge home today Patient should continue antidiarrheal meds -Imodium 2 tablets 3 times a day Follow-up in my office 1-2 weeks
== END 2018-01-03 14:05 | DRG 330 ==
LOC: SDA 02:49 → 2NB 02:49 → ENRESERV 10:42 → ENTRNSPT 11:01 → EDTRNSPT 11:08 → EDTRNSPTSTS 11:08 → 2NB 11:17 → CMPTRNSPT 11:33 → ENPENDDIS 01-03 08:03 → ENTRNSPT 01-03 13:08 → 2NB 01-03 14:05 → CMPTRNSPT 01-03 14:08
PROVIDERS: Nurse Practitioner
PROC: 3E0T3BZ Introduction of Anesthetic Agent into Peripheral Nerves and Plexi, Percutaneous Approach (ICD-10-PCS; principal; 2018-01-01)
PROC: 0DBB0ZZ Excision of Ileum, Open Approach (ICD-10-PCS; principal; 2018-01-01)
DX: Z43.2 Encounter for attention to ileostomy (principal); K51.00 Ulcerative (chronic) pancolitis without complications; Z86.711 Personal history of pulmonary embolism; Z86.718 Personal history of other venous thrombosis and embolism; Z79.01 Long term (current) use of anticoagulants; D50.9 Iron deficiency anemia, unspecified
CPT/HCPCS: 2NBP; 36415; 36592; 82436; J0131; J0690; J1100; J1644; J2405; J7120